=== PATIENT | female | born 1925 | race Caucasian/White ===

== ENCOUNTER 2016-05-01 17:12 | Outpatient (CLI) | payer MEDICARE, OTHER | END 2016-05-01 17:13 | disposition home or self-care (01) | DX: M16.0 Bilateral primary osteoarthritis of hip (principal); R10.2 Pelvic and perineal pain ==

== ENCOUNTER 2016-05-11 11:13 | Outpatient (CLI) | payer MEDICARE, OTHER | END 2016-05-11 11:14 | disposition home or self-care (01) | DX: I48.91 Unspecified atrial fibrillation (principal); Z79.01 Long term (current) use of anticoagulants ==

== ENCOUNTER 2016-06-08 08:46 | Outpatient (CLI) | payer MEDICARE, OTHER | END 2016-06-08 08:47 | disposition home or self-care (01) | DX: I48.91 Unspecified atrial fibrillation (principal); Z79.01 Long term (current) use of anticoagulants ==

== ENCOUNTER 2016-08-03 11:32 | Outpatient (CLI) | payer MEDICARE, OTHER | END 2016-08-03 11:33 | disposition home or self-care (01) | DX: I48.91 Unspecified atrial fibrillation (principal); Z79.01 Long term (current) use of anticoagulants ==

== ENCOUNTER 2016-08-04 08:16 | Outpatient (CLI) | payer MEDICARE, OTHER | END 2016-08-04 23:59 | DX: I48.91 Unspecified atrial fibrillation (principal); Z79.899 Other long term (current) drug therapy; I10 Essential (primary) hypertension ==

== ENCOUNTER 2016-08-17 11:28 | Outpatient (CLI) | payer MEDICARE, OTHER | END 2016-08-17 11:29 | disposition home or self-care (01) | DX: I48.91 Unspecified atrial fibrillation (principal); Z79.01 Long term (current) use of anticoagulants ==

== ENCOUNTER 2016-08-18 08:16 | Outpatient (CLI) | payer MEDICARE, OTHER | END 2016-08-18 08:17 | disposition home or self-care (01) | DX: M85.89 Other specified disorders of bone density and structure, multiple sites (principal); Z78.0 Asymptomatic menopausal state ==

== ENCOUNTER 2016-08-22 08:00 | Outpatient (CLI) | payer MEDICARE, OTHER | END 2016-08-22 08:01 | disposition home or self-care (01) | DX: N18.9 Chronic kidney disease, unspecified (principal); Z79.899 Other long term (current) drug therapy; M62.81 Muscle weakness (generalized) ==

== ENCOUNTER 2016-08-28 08:37 | Outpatient (CLI) | payer MEDICARE, OTHER | END 2016-08-28 08:38 | disposition home or self-care (01) | DX: I48.91 Unspecified atrial fibrillation (principal); Z79.01 Long term (current) use of anticoagulants ==

== ENCOUNTER 2016-09-05 09:24 | Outpatient (CLI) | payer MEDICARE, OTHER | END 2016-09-05 09:25 | disposition home or self-care (01) | LOC: LAB 09:24 | PROVIDERS: ATTEND Internal Medicine | DX: I48.91 Unspecified atrial fibrillation (principal); Z79.01 Long term (current) use of anticoagulants | CPT/HCPCS: 85610 ==

== ENCOUNTER 2016-09-12 10:04 | Outpatient (CLI) | payer MEDICARE, OTHER | END 2016-09-12 10:05 | disposition home or self-care (01) | LOC: LAB 10:04 | PROVIDERS: ATTEND Internal Medicine | DX: I48.91 Unspecified atrial fibrillation (principal) | CPT/HCPCS: 85610 ==

== ENCOUNTER 2016-09-26 09:13 | Outpatient (CLI) | payer MEDICARE, OTHER | END 2016-09-26 09:14 | disposition home or self-care (01) | LOC: LAB 09:13 | PROVIDERS: ATTEND Internal Medicine | DX: I48.91 Unspecified atrial fibrillation (principal) | CPT/HCPCS: 85610 ==

== ENCOUNTER 2016-10-03 08:55 | Outpatient (CLI) | payer MEDICARE, OTHER ==
[2016-10-03 16:09] LABS: BASOPHILS % (AUTO) 0.3 %; EOSINOPHILS # (AUTO) 0.3 10^3/uL (0.0-0.7); EOSINOPHILS % (AUTO) 5.9 %; HGB - HEMOGLOBIN 10.1 g/dL (12.0-16.0); IMMATURE RETIC FRACTION 0.46; MEAN CORPUSCULAR HEMOGLOBIN 27.9 pg (27.0-31.0); MEAN CORPUSCULAR HGB CONC 32.6 g/dL (32.0-36.0); MEAN CORPUSCULAR VOLUME 85.7 fL (81.0-99.0); MEAN PLATELET VOLUME 8.8 fL (7.9-10.8); MONOCYTES # (AUTO) 0.4 10^3/uL (0.0-1.0); MONOCYTES % (AUTO) 9.5 %; NEUTROPHILS # (AUTO) 2.8 10^3/uL (1.5-6.6); NEUTROPHILS % (AUTO) 62.3 %; RED BLOOD COUNT 3.62 10^6/uL (4.20-5.40); UNCORRECTED WHITE BLOOD COUNT 4.5 x10^3/uL; WHITE BLOOD COUNT 4.5 x10^3/uL (4.8-10.8)
[2016-10-03 16:39] LABS: FERRITIN 16.2 ng/mL (11.0-306.8)
== END 2016-10-03 08:56 | disposition home or self-care (01) ==
LOC: LAB.R 08:55
PROVIDERS: ATTEND Internal Medicine
DX: D64.9 Anemia, unspecified (principal)
CPT/HCPCS: 82607; 82728; 83010; 85025; 85044; 86880

== ENCOUNTER 2016-10-04 13:51 | Outpatient (CLI) | payer MEDICARE, OTHER | END 2016-10-04 13:52 | disposition home or self-care (01) | LOC: DI 13:51 | PROVIDERS: ATTEND Internal Medicine | DX: I48.91 Unspecified atrial fibrillation (principal); R53.83 Other fatigue; I08.3 Combined rheumatic disorders of mitral, aortic and tricuspid valves | CPT/HCPCS: 93306 ==

== ENCOUNTER 2016-10-10 11:02 | Outpatient (CLI) | payer MEDICARE, OTHER | END 2016-10-10 11:03 | disposition home or self-care (01) | LOC: LAB 11:02 | PROVIDERS: ATTEND Internal Medicine | DX: I48.91 Unspecified atrial fibrillation (principal) | CPT/HCPCS: 85610 ==

== ENCOUNTER 2016-10-10 13:21 | Outpatient (CLI) | payer MEDICARE, OTHER | END 2016-10-10 13:22 | disposition EMS.NT | LOC: EMS 13:21 | PROVIDERS: ATTEND Surgery | DX: R53.1 Weakness (principal); W17.89XA Other fall from one level to another, initial encounter; Y92.009 Unspecified place in unspecified non-institutional (private) residence as the place of occurrence of the external cause ==

== ENCOUNTER 2016-10-12 11:39 | Outpatient (CLI) | payer MEDICARE, OTHER ==
--- NOTE | 2016-10-13 09:48 | Ultrasound Report ---
COMPLETE ABDOMINAL ULTRASOUND: 10/12/2016 CLINICAL INDICATION: Abdominal distention. TECHNIQUE: Real-time scanning was performed with marketing representative static images obtained. FINDINGS: The liver measures 14.1 cm. An 1.2 cm cyst is noted in the right lobe. No focal solid hepa tic lesion or intrahepatic biliary dilatation is present. The common bile duct measures 5 mm. The gal lbladder demonstrates sludge within its lumen. No definite shadowing calculus is seen. The visualized pancreas is normal. The right kidney measures 9.3 cm, and demonstrates a 2.5 cm cyst. The left kidne y measures 8.6 cm, and demonstrates an 1.1 cm cyst. No hydronephrosis, shadowing calculus, or solid r enal mass is identified. The spleen measures 8.1 cm, and appears unremarkable. The abdominal aorta is normal in caliber. The inferior vena cava is unremarkable. No free fluid is present. IMPRESSION: 1. INCIDENTAL HEPATIC AND RENAL CYSTS. 2. NO EVIDENT ETIOLOGY FOR ABDOMINAL DISTENTION. JOB #: [id number] EXT JOB #:[id number]
== END 2016-10-12 11:40 | disposition home or self-care (01) ==
LOC: DI 11:39
PROVIDERS: ATTEND Internal Medicine
DX: R14.0 Abdominal distension (gaseous) (principal)
CPT/HCPCS: 76700

== ENCOUNTER 2016-11-07 10:29 | Outpatient (CLI) | payer MEDICARE, OTHER | END 2016-11-07 10:30 | disposition home or self-care (01) | LOC: LAB 10:29 | PROVIDERS: ATTEND Internal Medicine | DX: I48.91 Unspecified atrial fibrillation (principal) | CPT/HCPCS: 85610 ==

== ENCOUNTER 2016-11-14 11:10 | Outpatient (CLI) | payer MEDICARE, OTHER ==
[2016-11-14 16:45] LABS: BASOPHILS % (AUTO) 0.4 %; EOSINOPHILS # (AUTO) 0.2 10^3/uL (0.0-0.7); EOSINOPHILS % (AUTO) 3.2 %; HCT - HEMATOCRIT 30.9 % (37.0-47.0); HGB - HEMOGLOBIN 9.8 g/dL (12.0-16.0); LYMPHOCYTES # (AUTO) 0.9 10^3/uL (1.5-3.5); LYMPHOCYTES % (AUTO) 17.2 %; MEAN CORPUSCULAR HEMOGLOBIN 27.6 pg (27.0-31.0); MEAN CORPUSCULAR HGB CONC 31.8 g/dL (32.0-36.0); MEAN CORPUSCULAR VOLUME 86.7 fL (81.0-99.0); MEAN PLATELET VOLUME 8.3 fL (7.9-10.8); MONOCYTES # (AUTO) 0.7 10^3/uL (0.0-1.0); MONOCYTES % (AUTO) 13.6 %; NEUTROPHILS # (AUTO) 3.4 10^3/uL (1.5-6.6); NEUTROPHILS % (AUTO) 65.6 %; RED BLOOD COUNT 3.56 10^6/uL (4.20-5.40); RED CELL DISTRIBUTION WIDTH 17.3 % (12.0-15.0); UNCORRECTED WHITE BLOOD COUNT 5.2 x10^3/uL; WHITE BLOOD COUNT 5.2 x10^3/uL (4.8-10.8)
== END 2016-11-14 11:11 | disposition home or self-care (01) ==
LOC: LAB.R 11:10
PROVIDERS: ATTEND Internal Medicine
DX: D64.9 Anemia, unspecified (principal)
CPT/HCPCS: 82728; 85025

== ENCOUNTER 2016-11-18 09:16 | Inpatient (IN) | payer MEDICARE, OTHER ==
--- NOTE | 2016-11-18 10:05 | ED Physician Documentation ---
History of Present Illness - Stated complaint Stated Complaint: ABD PX - Chief complaint Chief Complaint: Abd Pain - History obtained from History obtained from: Patient, Family - Additonal information Additional information: Patient is a relatively healthy 89-year-old female. She does have a history of atrial fibrillation and is on carvedilol and Coumadin. She has had lumbar back surgery in the past but has never had any abdominal surgery. She does mention that she has a history of recurrent constipation. She is here with a chief complaint of lower abdominal pain that started early this morning about 5 and it lasted a couple hours. It was located bilaterally in the lower part of her abdomen. She felt nauseous with this pain but did not vomit. She has not had any recent constipation, diarrhea, or lower urinary symptoms. She denies any fever. She had the pain nothing made it better or worse. She denies any chest pain or shortness of breath. Review of systems: For pertinent positive and negatives in the review of systems please see the history of present illness, otherwise all other systems have been reviewed and are negative. Dragon disclaimer: Parts of this medical record were created using voice recognition technology. Because of the inherent limitations of this system, occasional same sounding word substitutions do occur and persist despite proofreading. Please read the document for context. Review of Systems Ten Systems: 10 systems reviewed and negative Constitutional: denies: Fever, Chills, Myalgias Eyes: reports: Reviewed and negative Ears: reports: Reviewed and negative Cardiac: denies: Chest pain / pressure, Palpitations, Pedal edema, Calf pain Respiratory: denies: Dyspnea, Cough, Hemoptysis, Wheezing GI: reports: Abdominal Pain, Nausea. denies: Abdominal Swelling, Vomiting, Constipation, Diarrhea, Hematemesis, Bloody / black stool : denies: Dysuria Skin: denies: Rash, Lesions PD PAST MEDICAL HISTORY - Past Medical History Cardiovascular: Hypertension, Atrial fibrillation Respiratory: Asthma Neuro: None Endocrine/Autoimmune: None GI: Chronic constipation : None HEENT: Macular degeneration Psych: None Musculoskeletal: None Derm: None - Past Surgical History Ortho: Spine surgery HEENT: Cataracts, Tonsil/Adenoidectomy Derm: Skin cancer surgery, Other - Present Medications Home Medications: Ambulatory Orders Medication Instructions Recorded Confirmed Carvedilol 1 tab PO BID 12/01/13 11/18/16 Triamterene/Hydrochlorothiazid 1 tab PO DAILY 12/01/13 11/18/16 [Triamterene-Hctz 37.5-25 mg Tb] Fluticasone 44 Mcg [Flovent] 1 puffs INH BID 09/22/14 11/18/16 Levalbuterol Tartrate [Xopenex Hfa] 1 puffs INH Q6HR PRN 09/22/14 11/18/16 Warfarin Sodium 2.5 - 5 mg PO DAILY 09/22/14 11/18/16 Furosemide [Lasix] 1 tab PO DAILY 10/15/14 11/18/16 Potassium Chloride 20 meq PO BID 11/18/16 11/18/16 - Allergies Allergies/Adverse Reactions: Allergies Allergy/AdvReac Type Severity Reaction Status Date / Time albuterol Allergy Unknown Verified 12/09/13 10:30 verapamil [Verapamil] Allergy Rash Verified 12/09/13 10:30 codeine AdvReac Dizziness Verified 12/09/13 10:30 digoxin AdvReac Dizziness Verified 12/09/13 10:30 diltiazem AdvReac Dizziness Verified 12/09/13 10:30 metoprolol AdvReac Dizziness Verified 12/09/13 10:30 oxycodone [Oxycodone] AdvReac Nausea Verified 12/09/13 10:30 - Social History Does the pt smoke?: No Smoking Status: Never smoker PD ED PE NORMAL - Vitals Vital signs reviewed: Yes - General General: Alert and oriented X 3, No acute distress, Well developed/nourished - HEENT HEENT: Atraumatic, PERRL - Cardiac Cardiac: No gallop, No rub, Other (Irregularly irregular heart rate) - Respiratory Respiratory: No respiratory distress, Clear bilaterally - Abdomen Abdomen: Normal bowel sounds, Non tender, Non distended - Derm Derm: Normal color - Extremities Extremities: No deformity, No tenderness to palpate, Normal ROM s pain, No edema , No calf tenderness / cord, Other - Neuro Neuro: Alert and oriented X 3, No motor deficit - Psych Psych: Normal mood, Normal affect Results - Vitals Vitals: Vital Signs - 24 hr 11/18/16 11/18/16 11/18/16 09:19 11:30 12:24 Temperature 35.7 C L Heart Rate 107 H 53 L 81 Respiratory 16 12 20 Rate Blood Pressure 163/105 H 132/67 H 175/90 H O2 Saturation 95 97 96 11/18/16 11/18/16 15:21 18:15 Temperature 36.9 C Heart Rate 88 87 Respiratory 16 16 Rate Blood Pressure 155/85 H 146/84 H O2 Saturation 100 97 Oxygen O2 Source Room air - Labs Labs: Laboratory Tests 11/18/16 11/18/16 11/18/16 10:10 10:10 10:10 WBC 7.4 RBC 3.70 L Hgb 10.3 L Hct 31.6 L MCV 85.3 MCH 27.8 MCHC 32.5 RDW 16.6 H Plt Count 299 MPV 7.8 L Neut # 5.8 Lymph # 1.0 L [place] # 0.5 Eos # 0.1 Baso # 0.1 Absolute Nucleated RBC 0.01 Nucleated RBCs 0.1 PT 19.4 H INR 1.7 H Sodium 136 Potassium 3.9 Chloride 98 L Carbon Dioxide 29 Anion Gap 9.0 BUN 31 H Creatinine 1.3 H Estimated GFR (MDRD) 39 L Glucose 102 H Lactic Acid Calcium 10.2 Total Bilirubin 0.6 AST 21 ALT 16 Alkaline Phosphatase 47 Total Protein 6.5 L Albumin 3.2 Globulin 3.3 Albumin/Globulin Ratio 1.0 Lipase 27 Urine Color Urine Clarity Urine pH Ur Specific [place] Urine Protein Urine Glucose (UA) Urine Ketones Urine Occult Blood Urine Nitrite Urine Bilirubin Urine Urobilinogen Ur Leukocyte Esterase Ur Microscopic Review Urine Culture Comments 11/18/16 11/18/16 11:00 14:37 WBC RBC Hgb Hct MCV MCH MCHC RDW Plt Count MPV Neut # Lymph # [place] # Eos # Baso # Absolute Nucleated RBC Nucleated RBCs PT INR Sodium Potassium Chloride Carbon Dioxide Anion Gap BUN Creatinine Estimated GFR (MDRD) Glucose Lactic Acid 1.2 Calcium Total Bilirubin AST ALT Alkaline Phosphatase Total Protein Albumin Globulin Albumin/Globulin Ratio Lipase Urine Color YELLOW Urine Clarity CLOUDY Urine pH 5.5 Ur Specific [place] 1.025 Urine Protein TRACE Urine Glucose (UA) NEGATIVE Urine Ketones NEGATIVE Urine Occult Blood TRACE-LYSE Urine Nitrite NEGATIVE Urine Bilirubin NEGATIVE Urine Urobilinogen 0.2 (NORMAL) Ur Leukocyte Esterase MODERATE H Ur Microscopic Review NOT INDICATED Urine Culture Comments NOT INDICATED PD MEDICAL DECISION MAKING - ED course ED course: Patient is a pleasant 89-year-old female with history of atrial fibrillation on Coumadin who presents with a complaint of lower abdominal pain starting this morning she felt nauseated but never had any vomiting. When I saw the patient she looks well and had a fairly benign abdominal examination with only increased borborygmi. Plain films demonstrated abnormal bowel gas pattern possibly suggestive of a small bowel obstruction so this was followed up with a noncontrast CT given her renal dysfunction. The CTs demonstrates probable intussusception. Interestingly clinically the patient is doing very well. She has no nausea vomiting, no pain at present and really no tenderness. The case was discussed with general surgery. The patient also had a oral contrast CT scan of the abdomen and pelvis which demonstrates intussusception at the ileocecal area with findings consistent with a mass. The patient clinically is doing well. She is more or less asymptomatic at this time. She is likely volume resuscitated given a dose of Zofran. At this point in time we are going to place an NG tube because ultimately she will probably start to worsen at some point. The patient was notified of this findings and the need for surgery in the morning. Disposition: Admission Clinical impression: 1. Ileocecal mass with intussusception 2. History of atrial fibrillation on Coumadin-currently in atrial fibrillation 3. Chronic kidney disease Departure - Departure Disposition: [facility] DC/Xfer Clinical Impression: Intussusception of cecum
[2016-11-18 10:24] LABS: BASOPHILS # (AUTO) 0.1 10^3/uL (0.0-0.1); BASOPHILS % (AUTO) 0.8 %; EOSINOPHILS # (AUTO) 0.1 10^3/uL (0.0-0.7); EOSINOPHILS % (AUTO) 1.4 %; HCT - HEMATOCRIT 31.6 % (37.0-47.0); HGB - HEMOGLOBIN 10.3 g/dL (12.0-16.0); LYMPHOCYTES % (AUTO) 13.2 %; MEAN CORPUSCULAR HEMOGLOBIN 27.8 pg (27.0-31.0); MEAN CORPUSCULAR HGB CONC 32.5 g/dL (32.0-36.0); MEAN CORPUSCULAR VOLUME 85.3 fL (81.0-99.0); MEAN PLATELET VOLUME 7.8 fL (7.9-10.8); MONOCYTES # (AUTO) 0.5 10^3/uL (0.0-1.0); MONOCYTES % (AUTO) 6.4 %; NEUTROPHILS # (AUTO) 5.8 10^3/uL (1.5-6.6); NEUTROPHILS % (AUTO) 78.2 %; NUCLEATED RED BLOOD CELLS AUTO 0.1 /100WBC; RED CELL DISTRIBUTION WIDTH 16.6 % (12.0-15.0); UNCORRECTED WHITE BLOOD COUNT 7.4 x10^3/uL; WHITE BLOOD COUNT 7.4 x10^3/uL (4.8-10.8)
[2016-11-18 10:26] LABS: INR 1.7 (0.8-1.2); PT - PROTHROMBIN TIME 19.4 secs (9.9-12.6)
[2016-11-18 10:32] LABS: BILIRUBIN,TOTAL 0.6 mg/dL (0.2-1.0); CALCIUM 10.2 mg/dL (8.5-10.3); CREATININE 1.3 mg/dL (0.4-1.0); POTASSIUM 3.9 mmol/L (3.5-5.0); TOTAL PROTEIN 6.5 g/dL (6.7-8.2)
--- NOTE | 2016-11-18 11:06 | XRAY Preliminary Report ---
Exam: XR Abdomen 1 View IMPRESSION: 1. Air-fluid level in bowel may represent developing partial obstruction and/or liquid bowel contents . 2. Large rectal stool burden [facility] SITE ID: [id number]
[2016-11-18 11:07] LABS: BILIRUBIN,URINE NEGATIVE (NEGATIVE); PH,URINE 5.5 PH (5.0-7.5)
--- NOTE | 2016-11-18 11:08 | XRAY Report ---
EXAM: ABDOMEN RADIOGRAPHY EXAM DATE: 11/18/2016 10:32 AM. CLINICAL HISTORY: Generalized ab pain hx of constipation. COMPARISON: Limited comparison made with pelvis radiograph of 05/01/2016, chest radiograph 10/20/2014 .. TECHNIQUE: 1 view. FINDINGS: Bowel Gas Pattern: Air-fluid level in bowel. Large amount rectal stool. Other: Mild rotary levoscoliosis of the lumbar spine. IMPRESSION: 1. Air-fluid level in bowel may represent developing partial obstruction and/or liquid bowel contents . 2. Large rectal stool burden [facility] Referring Provider Line: [phone] SITE ID: [id number]
[2016-11-18 11:19] LABS: UA CHARGE (STRIP ONLY) YES
[2016-11-18 11:20] LABS: UR CULTURE IF IND NOT INDICATED
[2016-11-18] MEDS ORDERED: INSULIN ASPART 300 UNIT/3 ML PEN SUBQ STA (13:16)
--- NOTE | 2016-11-18 13:28 | CT Preliminary Report ---
Exam: CT Abdomen/Pelvis W/O IMPRESSION: 1. Colonic intussusception at the hepatic flexure. Recommend correlation with colonoscopy as underlyi ng mass lead point is possible. 2. A 10 mm hypoattenuating focus in hepatic segment 5 is indeterminate on noncontrast CT. Further prosper luation may be obtained with liver ultrasound or MRI if clinically indicated. [facility] SITE ID: [id number]
--- NOTE | 2016-11-18 13:30 | CT Report ---
EXAM: CT ABDOMEN AND PELVIS EXAM DATE: 11/18/2016 12:08 PM. CLINICAL HISTORY: Lower abdominal pain. COMPARISONS: No prior CT available for comparison. Correlation made with abdominal radiograph from to day. TECHNIQUE: Routine helical CT imaging was performed through the abdomen and pelvis. IV contrast: None . Enteric contrast: No. Reconstructions: Coronal and sagittal. In accordance with CT protocol optimization, one or more of the following dose reduction techniques w ere utilized for this exam: automated exposure control, adjustment of mA and/or KV based on patient s ize, or use of iterative reconstructive technique. FINDINGS: Lung Bases: Mild left basilar subsegmental atelectasis and/or scarring. Mild cardiomegaly. No pericar dial effusion. Small hiatal hernia. Liver: Hypoattenuating 10 mm focus in hepatic segment 5. Gallbladder/Bile Ducts: Unremarkable. Spleen: Normal. Pancreas: Normal. Adrenal Glands: Normal. Kidneys: Mild bilateral cortical scarring and nonspecific perinephric fat stranding. The right kidney has a transverse lie and extrarenal pelvis.. Peritoneal Cavity/Bowel: There is intussusception at the hepatic flexure with mild adjacent mesenteri c inflammatory fat stranding. (series 3, image 41). Remainder of the small and large bowel are normal in caliber without evidence of inflammation or obstruction. Moderate sigmoid diverticulosis. Moderat e colorectal stool burden. No ascites or pneumoperitoneum. Tiny fat-containing umbilical hernia Pelvic Organs: Urinary bladder within normal limits. Vasculature: Severe aortobiiliac atherosclerosis without aneurysm Bones: Mild central wedge compression deformity of T12. Severe degenerative disk disease throughout t he thoracolumbar spine. 4 mm retrolisthesis of L1 and L2. Mild rotary levoscoliosis of the lumbar spi ne. Other: None. IMPRESSION: 1. Colonic intussusception at the hepatic flexure. Recommend correlation with colonoscopy as underlyi ng mass lead point is possible. 2. A 10 mm hypoattenuating focus in hepatic segment 5 is indeterminate on noncontrast CT. Further prosper luation may be obtained with liver ultrasound or MRI if clinically indicated. [facility] Referring Provider Line: [phone] SITE ID: [id number]
[2016-11-18] MEDS ORDERED: SODIUM CHLORIDE 0.9% 1,000 ML IV ONE (15:05)
[2016-11-18] MEDS ORDERED: SODIUM CHLORIDE FLUSH 0.9% 10 ML SYRINGE IVP ONE (15:22)
[2016-11-18] MEDS ORDERED: ONDANSETRON 4 MG/2 ML VIAL IVP PRN (18:26)
--- NOTE | 2016-11-18 18:30 | CT Report ---
EXAM: CT ABDOMEN AND PELVIS EXAM DATE: 11/18/2016 05:50 PM. CLINICAL HISTORY: Possible intussusception. COMPARISONS: CT abdomen and pelvis 11/18/2016 at 1201. TECHNIQUE: Routine helical CT imaging was performed through the abdomen and pelvis. IV contrast: None . Enteric contrast: Yes. Reconstructions: Coronal and sagittal. In accordance with CT protocol optimization, one or more of the following dose reduction techniques w ere utilized for this exam: automated exposure control, adjustment of mA and/or KV based on patient s ize, or use of iterative reconstructive technique. FINDINGS: Lung Bases: Airways wall thickening at the bases. Trace effusions. Moderate cardiomegaly. Possible aortic valve calcifications. Trace pericardial fluid. Coronary artery atherosclerotic calcifications. Liver: Low attenuating lesion in segment 5, series 3, axial image 29, measures 1 cm and 11 Hounsfield units, possible cyst. Gallbladder/Bile Ducts: Pericholecystic edema and ill-defined fluid. Spleen: Normal. Pancreas: Normal. Adrenal Glands: Normal. Kidneys: Large parapelvic cyst on the right measures 3.7 cm. No hydronephrosis. Mild renal atrophy. S mall exophytic lesion off the inferior pole left kidney measures less than 1 cm and is too small to c haracterize. Peritoneal Cavity/Bowel: Small hiatal hernia. Incidental duodenal diverticulum. Colonic diverticulosi s. Contrast has reached the distal colon. Transverse colon wall thickening with under distention. Lar ge ileocolic intussusception with masslike thickening around the ileocecal valve and adjacent colon, series 3, axial image 36. Intussusception extends to the hepatic flexure. Pericolonic edema around th e hepatic flexure and adjacent gallbladder fossa. Pelvic Organs: Normal. The bladder and visualized pelvic organs are within normal limits. Vasculature: Moderate atherosclerotic calcifications. Bones: Osteopenia. Severe degenerative disk disease at L5/S1. Other: Small fat-containing umbilical hernia. IMPRESSION: 1. Large ileocecal intussusception extending to the hepatic flexure with suspected large mass acting as a lead point. Surgical evaluation. 2. Moderate cardiomegaly 3. Trace effusions 4. Small low attenuating liver lesion could be further characterized with liver MRI 5. Edema and ill-defined fluid in the right upper quadrant surrounding the ileocolic intussusception extends to surround the gallbladder 6. Renal atrophy 7. Colonic diverticulosis 8. Contrast has made its way to the distal colon 9. Transverse colon wall thickening may be related to developing colitis or under distention. 10. Small amount of mildly complex free fluid in the pelvis [facility] The above findings were discussed with Kelley by Dr. Jorje Baires at 18:26 hrs on 11/18/16. Referring Provider Line: [phone] SITE ID: [id number]
[2016-11-18] MEDS ORDERED: SALINE ENEMA 133 ML BOTTLE RC SCH (18:33)
[2016-11-18] MEDS ORDERED: MAGNESIUM CITRATE 296 ML BOTTLE NG SCH (18:33)
[2016-11-18] MEDS ORDERED: LEVALBUTEROL 1.25 MG INH PRN (18:39)
[2016-11-18] MEDS ORDERED: BENZOCAINE SPRAY MM PRN (20:15)
--- NOTE | 2016-11-18 20:33 | XRAY Preliminary Report ---
Exam: XR Chest 2 View PA/LAT IMPRESSION: 1. Stable cardiomegaly. 2. New small posterior pleural effusions. 3. Hyperexpanded lungs again noted, could be age-related or COPD. [facility] SITE ID: [id number]
--- NOTE | 2016-11-18 20:35 | XRAY Report ---
EXAM: CHEST RADIOGRAPHY EXAM DATE: 11/18/2016 07:22 PM. CLINICAL HISTORY: Colon mass, pre operative. COMPARISON: Chest 10/20/2014. TECHNIQUE: 2 views. FINDINGS: Lungs/Pleura: No focal opacities evident. No pneumothorax. Hyperexpanded lungs. New small posterior p leural effusions. Mediastinum: Stable cardiomegaly. IMPRESSION: 1. Stable cardiomegaly. 2. New small posterior pleural effusions. 3. Hyperexpanded lungs again noted, could be age-related or COPD. [facility] Referring Provider Line: [phone] SITE ID: [id number]
[2016-11-18] MEDS ORDERED: FLUTICASONE HFA 44 MCG INHALER INH SCH (21:00)
[2016-11-18] MEDS: LACTATED RINGERS 1,000 ML IV SCH (21:36)
[2016-11-18] MEDS: SODIUM CHLORIDE FLUSH 0.9% 10 ML SYRINGE IVP SCH (21:36)
[2016-11-19] MEDS ORDERED: SALINE ENEMA 133 ML BOTTLE RC SCH (05:00)
[2016-11-19] MEDS ORDERED: MAGNESIUM CITRATE 296 ML BOTTLE PO SCH (05:00)
[2016-11-19 06:38] LABS: BASOPHILS # (AUTO) 0.1 10^3/uL (0.0-0.1); BASOPHILS % (AUTO) 0.9 %; EOSINOPHILS # (AUTO) 0.1 10^3/uL (0.0-0.7); EOSINOPHILS % (AUTO) 2.4 %; HCT - HEMATOCRIT 33.6 % (37.0-47.0); HGB - HEMOGLOBIN 10.8 g/dL (12.0-16.0); LYMPHOCYTES # (AUTO) 0.9 10^3/uL (1.5-3.5); LYMPHOCYTES % (AUTO) 15.2 %; MEAN CORPUSCULAR HEMOGLOBIN 27.7 pg (27.0-31.0); MEAN CORPUSCULAR HGB CONC 32.2 g/dL (32.0-36.0); MEAN CORPUSCULAR VOLUME 86.1 fL (81.0-99.0); MEAN PLATELET VOLUME 7.5 fL (7.9-10.8); MONOCYTES # (AUTO) 0.5 10^3/uL (0.0-1.0); MONOCYTES % (AUTO) 8.1 %; NEUTROPHILS # (AUTO) 4.6 10^3/uL (1.5-6.6); NEUTROPHILS % (AUTO) 73.4 %; RED CELL DISTRIBUTION WIDTH 17.2 % (12.0-15.0); UNCORRECTED WHITE BLOOD COUNT 6.2 x10^3/uL; WHITE BLOOD COUNT 6.2 x10^3/uL (4.8-10.8)
[2016-11-19 06:49] LABS: INR 2.1 (0.8-1.2); PT - PROTHROMBIN TIME 23.4 secs (9.9-12.6)
[2016-11-19 06:51] LABS: CALCIUM 9.2 mg/dL (8.5-10.3); CREATININE 1.1 mg/dL (0.4-1.0); POTASSIUM 3.5 mmol/L (3.5-5.0)
[2016-11-19 06:56] LABS: PARTIAL THROMBOPLASTIN TIME 37.2 secs (24.9-33.3)
[2016-11-19] MEDS: PANTOPRAZOLE 40 MG VIAL IVP SCH ×2 (06:57→19:39)
[2016-11-19] MEDS: SODIUM CHLORIDE FLUSH 0.9% 10 ML SYRINGE IVP SCH ×3 (06:58→22:02)
[2016-11-19] MEDS: LACTATED RINGERS 1,000 ML IV SCH ×2 (07:12→18:47)
[2016-11-19] MEDS: LEVALBUTEROL 1.25 MG INH PRN ×2 (07:30→20:25)
[2016-11-19] MEDS: BUDESONIDE 0.5 MG/2 ML NEB INH SCH ×2 (07:30→20:25)
[2016-11-19] MEDS ORDERED: LACTATED RINGERS 1,000 ML IV ONE ×3 (10:37→15:23)
[2016-11-19] MEDS ORDERED: metroNIDAZOLE 500 MG/100 ML 100 ML IV ONE (11:00)
[2016-11-19] MEDS ORDERED: BUPIVACAINE 0.25% PF 30 ML VIAL SUBQ ONE ×2 (11:13)
[2016-11-19] MEDS ORDERED: SUCCINYLCHOLINE 200 MG/10 ML VIAL IVP ONE (12:00)
[2016-11-19] MEDS ORDERED: fentaNYL 100 MCG/2 ML VIAL IVP ONE (12:00)
[2016-11-19] MEDS ORDERED: PHENYLEPHRINE 50 MG/5 ML VIAL IV ONE (12:00)
[2016-11-19] MEDS ORDERED: PROPOFOL 200 MG/20 ML VIAL IVP ONE (12:00)
[2016-11-19] MEDS ORDERED: DEXAMETHASONE 4 MG/ML VIAL IVP ONE (12:00)
[2016-11-19] MEDS ORDERED: ceFAZolin 1 GM VIAL IV ONE (12:00)
[2016-11-19] MEDS ORDERED: LIDOCAINE-MPF 2% 5 ML VIAL IM ONE (12:00)
[2016-11-19] MEDS ORDERED: MIDAZOLAM 2 MG/2 ML VIAL IVP ONE (12:00)
[2016-11-19] MEDS ORDERED: ACETAMINOPHEN 1,000 MG/100 ML VIAL IV ONE (12:00)
[2016-11-19] MEDS ORDERED: NEOSTIGMINE 1 MG/1 ML 10 ML MDV IVP ONE (12:00)
[2016-11-19] MEDS ORDERED: ROCURONIUM 50 MG/5 ML VIAL IVP ONE (12:00)
[2016-11-19] MEDS ORDERED: ONDANSETRON 4 MG/2 ML VIAL IVP ONE (12:00)
[2016-11-19] MEDS ORDERED: GLYCOPYRROLATE 1 MG/5 ML VIAL IVP ONE (12:00)
[2016-11-19] MEDS ORDERED: MORPHINE PCA 50 MG IV PRN (16:51)
[2016-11-19] MEDS ORDERED: ONDANSETRON 4 MG/2 ML VIAL IVP PRN (16:53)
--- NOTE | 2016-11-19 17:29 | HISTORY & PHYSICAL EXAMINATION ---
DATE OF ADMISSION: 11/18/2016 REASON FOR ADMISSION: Colonic intussusception. HISTORY OF PRESENT ILLNESS: This is an 89-year-old female who presented to the emergency department this morning for abdominal pain, which started at approximately 4 a.m. She states the pain was mostly located in her right upper quadrant and was progressive. She had a bowel movement the night prior and was continuing to pass gas. A CT scan of the abdomen was performed without oral or IV contrast, which demonstrated a possible colonic intussusception at the hepatic flexure. Due to the lack of intraoral contrast, the diagnosis was somewhat unclear. For this reason, a CT scan with oral contrast was repeated, which easily delineated the colonic intussusception located at the hepatic flexure with a likely intraluminal mass. Upon my evaluation of the patient, she was resting comfortably and her abdominal pain was pretty much subsided. She said that she was continuing to pass gas today, and her last bowel movement she confirmed was yesterday. She denies any recent changes in her bowel habits including blood in her stools. She believes she last had a colonoscopy approximately 10 years ago. She denies any unexplained weight loss or loss of appetite. She has not had any intraabdominal surgeries in the past. PAST MEDICAL HISTORY: Significant for atrial fibrillation, on Coumadin, hypertension, asthma, macular degeneration. PAST SURGICAL HISTORY: Spinal surgery, cataract surgery, tonsillectomy and adenoidectomy, and skin cancer surgery. HOME MEDICATIONS 1. Carvedilol, unknown dose, 1 tab twice daily. 2. Coumadin 2.5, two 5 mg daily. 3. Triamterene/hydrochlorothiazide 37.5/25, one tab daily. 4. Potassium 28 mEq p.o. twice daily. 5. Levalbuterol 1 puff INH q.6 p.r.n. 6. Lasix, unknown dosage, 1 tab daily. 7. Fluticasone 44 mcg 1 puff twice daily. ALLERGIES TO MEDICATIONS 1. ALBUTEROL. 2. VERAPAMIL. 3. CODEINE. 4. DIGOXIN. 5. DILTIAZEM. 6. METOPROLOL. 7. OXYCODONE. SOCIAL HISTORY: The patient lives independently. Her cousin is with her at the bedside. She is able to complete her activities of daily living independently. Her primary care physician is Dr. Mcarthur. PHYSICAL EXAMINATION VITAL SIGNS: Temperature 36.3, heart rate 95, respiratory rate 18, O2 saturation 97% on room air. Blood pressure 144/67. GENERAL: Patient is awake, alert, oriented x3, in no acute distress. She is of small stature and small build. CARDIOVASCULAR: Irregularly irregular. CHEST: Clear to auscultation bilaterally with no rhonchi or wheezing. ABDOMEN: Soft, slightly distended with palpable mass in the right upper quadrant. There is no guarding and no rebound tenderness. EXTREMITIES: Non-edematous. LABORATORY VALUES: White blood cell count 7.4, hemoglobin 10.3, hematocrit 31.6 , platelets 299. PT 19.4, INR 1.7. Sodium 136, potassium 3.9, chloride 98, bicarbonate 29, BUN 31, creatinine 1.3, lactic acid 1.2. ASSESSMENT: This is an 89-year-old female with a colonic intussusception, likely secondary to an intracolonic mass. PLAN: The patient will be admitted to the surgical service and an NG tube will be placed for gastric decompression. Following this, an attempt at a bowel prep will be made with magnesium citrate and enemas. Patient will be placed on IV fluid resuscitation with a plan for laparoscopic assisted extended right hemicolectomy tomorrow. Repeat labs will be obtained to ensure her INR remains 1.7 or less, and if it increases, I will plan for transfusion of FFP prior to surgery. The procedure was explained to the patient in detail, including the potential risks involved including but not limited to bleeding, infection, damage to intraabdominal organs, heart attack, stroke and . She understands all of the above and also understands that without surgical intervention, eventual colonic perforation and possible would ensue. She is agreeing to proceed with surgery. JOB #: [id number] EXT JOB #:[id number] VIANEY
--- NOTE | 2016-11-19 17:39 | XRAY Preliminary Report ---
Exam: XR Abdomen 1 View IMPRESSION: No radiopaque foreign body. [facility] SITE ID: [id number]
--- NOTE | 2016-11-19 17:41 | XRAY Report ---
EXAM: ABDOMEN RADIOGRAPHY EXAM DATE: 11/19/2016 04:46 PM. CLINICAL HISTORY: POSSIBLE FB. COMPARISON: CT 11/18/2016. TECHNIQUE: 1 view. FINDINGS: Bowel Gas Pattern: No dilated bowel loops. Other: Nasogastric tube with tip overlying the fundus of the stomach. Residual oral contrast in the b owel. No radiopaque foreign body. IMPRESSION: No radiopaque foreign body. [facility] Referring Provider Line: [phone] SITE ID: [id number]
[2016-11-19] MEDS: ACETAMINOPHEN 1,000 MG/100 ML 100 ML IV SCH ×2 (19:39→22:03)
[2016-11-19] MEDS: SODIUM CHLORIDE FLUSH 0.9% 10 ML SYRINGE IVP PRN (22:02)
[2016-11-19] MEDS: CARVEDILOL 12.5 MG TABLET PO SCH (22:02)
[2016-11-20] MEDS: SODIUM CHLORIDE FLUSH 0.9% 10 ML SYRINGE IVP PRN (00:38)
--- NOTE | 2016-11-20 03:26 | OPERATIVE REPORT ---
DATE OF SURGERY: 11/19/2016 00:00:00 SURGEON: Tamika Franco MD. ANESTHESIOLOGIST: Jv Vargas MD. PROCEDURE: Exploratory laparoscopy, mobilization of hepatic flexure, right hemicolectomy, and colonoscopy. INDICATION FOR PROCEDURE: This is an 89-year-old female who presented to the emergency department yesterday with the finding of a colonic intussusception. The patient was admitted to the surgical service. She was placed on fluid hydration and a bowel prep was performed. Her INR was elevated and she was administered 2 units of FFP. This was in association with her Coumadin intake for AFib. Once she was stabilized for the operating room, she was brought for elective surgery. FINDINGS: After obtaining informed consent from the patient, she was brought into the operating room and positioned on the operating table in the supine position, taking note of pressure points. A Hope catheter was placed. She was intubated by Anesthesia. She was administered 2 grams of Ancef, then 500 of Flagyl. She was then prepped and draped in the usual sterile fashion. A timeout was taken according to protocol. A cm supraumbilical incision was created and using Daily technique, the abdominal cavity was entered. The camera was inserted and the colon was noted to be distended. An additional 5 mm port was placed in the patient's right lower quadrant and in the patient's left upper quadrant. The bowel was then explored. The cecum and terminal ileum were identified and no intussusception was seen here. The colon was then followed from the ascending colon to the transverse colon and the intussusception still was not identified. The descending colon and sigmoid were also inspected and no mass or intussusception was identified. I then began mobilizing the transverse colon in order to mobilize the hepatic flexure. This was done in completion. During the process of mobilization of the ascending and transverse colon, the right kidney was inadvertently also mobilized. There was no injury to the kidney during this process and the ureter was identified and protected. After mobilization of the colon, I was still unable to find a mass or an area of intussusception. For this reason, I elected to do a colonoscopy to identify a possible intracolonic mass. The laparoscopic instruments were removed and the incisions covered with tegaderm. The patient was positioned in the frog leg position and the colonoscopy was performed with some difficulty due to an inadequate prep. Once I was able to reach the cecum, a large nearly circumferential and obstructing mass was noted in the ascending colon just distal to the cecum. This area was tattooed. The scope was then withdrawn and the laparoscopic portion of the procedure was reinstituted. The ports were reinserted and the abdominal cavity reinsufflated. Now that the colon was fully mobilized, I chose my 2 sites of transection. the right lower quadrant port was upgraded to a 12 mm port and an additional 5 mm port was placed in the right upper quadrant to retract the colon. The terminal ileum was divided with an Endo WENDY 60 mm stapler, approximately 10 cm proximal to the cecum. The ascending colon was then divided near the hepatic flexure, approximately 5 cm proximal to the proximal tattooed jesus alberto. At this point, the laparoscopic instruments were removed and the supraumbilical incision was extended to accommodate the wound protecting device. It was extended approximately 3 cm cephalad. The wound protection device was then inserted and the transected end of the ascending colon was exteriorized. The mesentery was then divided using the Harmonic. The ileocolic pedicle was ligated using 0 silk sutures. The specimen was then completely excised and was passed off. The proximal and distal stapled end of the bowel were then exteriorized. These were aligned, ensuring there was no twisting of the mesentery during this process. A stay suture was placed with 3-0 silk. Enterotomies were then made in the distal ileum and the transverse colon. An anastomosis was created using the Endo WENDY 60 mm stapling device with a blue load. The common enterotomy was then clamped with Ghada clamps and was resected with the endo WENDY. The excess bowel was also passed off along with the specimens. The anastomosis was palpated and was noted to be widely patent. The staple line was inverted with interrupted vicryl sutures. The mesenteric defect was then closed with a running 3-0 Vicryl suture. At this point it was noted that a portion of one of the [place] we had been utilizing had a very small tip of a piece missing. We were unsure whether this occurred during the procedure or if the Plummer was damaged prior to its use. For this reason, we elected to perform an on-table abdominal x-ray to rule out presence of a foreign body and none was noted. The abdominal cavity was then inspected for any signs of bleeding and none was noted. The wound protector device was removed. The fascia was closed with a running 0 looped PDS suture. The 12 mm port site was closed with 0 figure of eight Vicryl suture. The midline wound was closed with 3-0 Vicryl and 4-0 Monocryl and the port sites were closed with 4-0 Monocryl, and 60 mL of local anesthetic was utilized. The patient was then extubated and taken to recovery in stable condition. ESTIMATED BLOOD LOSS: 40 mL. FLUIDS RECEIVED: 3 liters. COMPLICATIONS: None. SPECIMENS: Right colon. JOB #: [id number] EXT JOB #:[id number] VIANEY
[2016-11-20] MEDS: SODIUM CHLORIDE FLUSH 0.9% 10 ML SYRINGE IVP SCH ×3 (06:43→22:23)
--- NOTE | 2016-11-20 06:50 | XRAY Preliminary Report ---
Exam: XR Chest 1 View IMPRESSION: 1. NG tube in the mid stomach. 2. Cardiomegaly with pulmonary vascular congestion and small pleural effusions. 3. Left basilar atelectasis or infiltrate. [facility] SITE ID: [id number]
[2016-11-20 06:53] LABS: BASOPHILS % (AUTO) 0.1 %; HCT - HEMATOCRIT 31.7 % (37.0-47.0); HGB - HEMOGLOBIN 10.1 g/dL (12.0-16.0); LYMPHOCYTES # (AUTO) 0.5 10^3/uL (1.5-3.5); LYMPHOCYTES % (AUTO) 6.6 %; MEAN CORPUSCULAR HEMOGLOBIN 27.7 pg (27.0-31.0); MEAN CORPUSCULAR HGB CONC 31.9 g/dL (32.0-36.0); MONOCYTES # (AUTO) 0.3 10^3/uL (0.0-1.0); MONOCYTES % (AUTO) 4.1 %; NEUTROPHILS # (AUTO) 6.4 10^3/uL (1.5-6.6); NEUTROPHILS % (AUTO) 89.2 %; RED BLOOD COUNT 3.64 10^6/uL (4.20-5.40); UNCORRECTED WHITE BLOOD COUNT 7.2 x10^3/uL; WHITE BLOOD COUNT 7.2 x10^3/uL (4.8-10.8)
--- NOTE | 2016-11-20 06:53 | XRAY Report ---
EXAM: CHEST RADIOGRAPHY EXAM DATE: 11/20/2016 06:41 AM. CLINICAL HISTORY: Verify nasogastric tube placement. COMPARISON: 11/19/2016. TECHNIQUE: 1 view. FINDINGS: Lungs/Pleura: Pulmonary vascular congestion. Left basilar atelectasis or consolidation. Small pleural effusions, left greater than right. No pneumothorax. Mediastinum: Cardiomegaly. Aortic atherosclerosis. Other: Nasogastric tube tip in the mid stomach. IMPRESSION: 1. NG tube in the mid stomach. 2. Cardiomegaly with pulmonary vascular congestion and small pleural effusions. 3. Left basilar atelectasis or infiltrate. [facility] Referring Provider Line: [phone] SITE ID: [id number]
[2016-11-20] MEDS: BUDESONIDE 0.5 MG/2 ML NEB INH SCH ×3 (06:58→22:15)
[2016-11-20 07:04] LABS: CALCIUM 8.4 mg/dL (8.5-10.3); CREATININE 1.3 mg/dL (0.4-1.0); POTASSIUM 3.2 mmol/L (3.5-5.0)
[2016-11-20 07:05] LABS: INR 3.4 (0.8-1.2); PT - PROTHROMBIN TIME 38.6 secs (9.9-12.6)
[2016-11-20] MEDS: PANTOPRAZOLE 40 MG VIAL IVP SCH ×2 (07:27→17:02)
[2016-11-20] MEDS ORDERED: PHENOL THROAT SPRAY 177 ML MM PRN (08:35)
[2016-11-20] MEDS ORDERED: BENZOCAINE/MENTHOL LOZENGE MM PRN (08:35)
[2016-11-20] MEDS: CARVEDILOL 12.5 MG TABLET PO SCH ×2 (08:44→22:21)
[2016-11-20] MEDS: POTASSIUM CHLORIDE INJ 10 MEQ in SODIUM CHLORIDE 0.9% 1,000 ML IV SCH ×2 (08:46→22:43)
[2016-11-20] MEDS: ACETAMINOPHEN 1,000 MG/100 ML 100 ML IV SCH ×4 (08:50→22:24)
[2016-11-20] MEDS: LACTATED RINGERS 1,000 ML IV SCH ×3 (08:50→22:22)
--- NOTE | 2016-11-20 14:40 | POST OP PROGRESS NOTE ---
Subjective - General Admit Date: 11/18/16 Procedure Date: 11/20/16 Post Op Days: 0 - Review of Systems Wound/Incisions: positive: Healing well General: positive: Weakness, Fatigue Pulmonary: positive: No symptoms Cardiovascular: positive: No symptoms Gastrointestinal: positive: Flatus. negative: Nausea Genitourinary: positive: Hematuria Psychiatric: positive: No symptoms Surgery Impression Plan - Problem List (1) Intussusception of cecum Impression/Plan: DC oliva encourage ambulation con't NGT until bowel function. NPO, IV fluids hold coumadin - INR elevated today monitor HTN. home meds restarted but diuretics held.
[2016-11-20] MEDS: LEVALBUTEROL 1.25 MG INH PRN (22:15)
[2016-11-21] MEDS: POTASSIUM CHLORIDE INJ 10 MEQ in SODIUM CHLORIDE 0.9% 1,000 ML IV SCH (04:52)
[2016-11-21] MEDS: ACETAMINOPHEN 1,000 MG/100 ML 100 ML IV SCH ×4 (04:52→22:07)
[2016-11-21 06:08] LABS: BASOPHILS % (AUTO) 0.2 %; HCT - HEMATOCRIT 31.6 % (37.0-47.0); HGB - HEMOGLOBIN 10.2 g/dL (12.0-16.0); LYMPHOCYTES # (AUTO) 0.7 10^3/uL (1.5-3.5); LYMPHOCYTES % (AUTO) 11.4 %; MEAN CORPUSCULAR HEMOGLOBIN 28.1 pg (27.0-31.0); MEAN CORPUSCULAR HGB CONC 32.4 g/dL (32.0-36.0); MEAN CORPUSCULAR VOLUME 86.7 fL (81.0-99.0); MEAN PLATELET VOLUME 7.9 fL (7.9-10.8); MONOCYTES # (AUTO) 0.3 10^3/uL (0.0-1.0); MONOCYTES % (AUTO) 5.9 %; NEUTROPHILS # (AUTO) 4.9 10^3/uL (1.5-6.6); NEUTROPHILS % (AUTO) 82.5 %; RED BLOOD COUNT 3.65 10^6/uL (4.20-5.40); RED CELL DISTRIBUTION WIDTH 17.2 % (12.0-15.0)
[2016-11-21 06:13] LABS: PT - PROTHROMBIN TIME 54.2 secs (9.9-12.6)
[2016-11-21 06:21] LABS: CALCIUM 8.3 mg/dL (8.5-10.3); CREATININE 1.5 mg/dL (0.4-1.0); MAGNESIUM 2.1 mg/dL (1.7-2.8); POTASSIUM 3.8 mmol/L (3.5-5.0)
[2016-11-21 06:28] LABS: INR 4.7 (0.8-1.2)
[2016-11-21] MEDS: BUDESONIDE 0.5 MG/2 ML NEB INH SCH ×2 (08:20→19:33)
[2016-11-21] MEDS: PANTOPRAZOLE 40 MG VIAL IVP SCH ×2 (08:25→17:49)
[2016-11-21] MEDS: CARVEDILOL 12.5 MG TABLET PO SCH (11:00)
[2016-11-21] MEDS: SODIUM CHLORIDE FLUSH 0.9% 10 ML SYRINGE IVP SCH ×3 (11:00→19:59)
--- NOTE | 2016-11-21 12:17 | PROVIDER PROGRESS NOTE ---
Subjective - General Admit Date: 11/18/16 Procedure Date: 11/20/16 Post Op Days: 1 - Review of Systems Wound/Incisions: positive: Healing well Drain Type: NGT Drain Output Description: 250 Approximate mls Output: 250 General: positive: Weakness, Fatigue Pulmonary: positive: No symptoms Cardiovascular: positive: No symptoms Gastrointestinal: positive: Abdominal pain. negative: Nausea Genitourinary: positive: Retention Psychiatric: positive: No symptoms Objective - Patient Data Reviewed Vital Signs: Yes Vital Signs: Vital Signs x48h Temp Pulse Pulse Pulse Pulse Resp BP 11/21/16 10:30 121 H 99 97/61 11/21/16 10:00 18 11/21/16 09:00 36.6 C 98 18 11/21/16 08:20 97 18 11/21/16 05:00 36.4 C L 120 H 18 11/21/16 04:59 14 BP BP BP Pulse Ox 11/21/16 10:30 105/53 L 94/45 L 11/21/16 10:00 11/21/16 09:00 86/60 L 97 11/21/16 08:20 11/21/16 05:00 90/49 L 94 11/21/16 04:59 Intake & Output: Intake and Output Totals x24h 11/19/16 11/20/16 11/21/16 23:59 23:59 23:59 Intake Total 1499 1766 1516 Output Total 2125 795 375 Balance -656 897 3477 - Lab Results Lab Results: 11/21/16 05:42 11/21/16 05:42 Other Lab Results: Lab Results x24hrs 11/21/16 11/21/16 11/21/16 Range/Units 05:42 05:42 05:42 WBC 6.0 (4.8-10.8) x10^3/uL RBC 3.65 L (4.20-5.40) 10^6/uL Hgb 10.2 L (12.0-16.0) g/dL Hct 31.6 L (37.0-47.0) % MCV 86.7 (81.0-99.0) fL MCH 28.1 (27.0-31.0) pg MCHC 32.4 (32.0-36.0) g/dL RDW 17.2 H (12.0-15.0) % Plt Count 286 (130-450) 10^3/uL MPV 7.9 (7.9-10.8) fL Neut # 4.9 (1.5-6.6) 10^3/uL Lymph # 0.7 L (1.5-3.5) 10^3/uL [place] # 0.3 (0.0-1.0) 10^3/uL Eos # 0.0 (0.0-0.7) 10^3/uL Baso # 0.0 (0.0-0.1) 10^3/uL Absolute Nucleated RBC 0.00 x10^3/uL Nucleated RBCs 0.0 /100WBC PT 54.2 H (9.9-12.6) secs INR 4.7 H* (0.8-1.2) Sodium 136 (135-145) mmol/L Potassium 3.8 (3.5-5.0) mmol/L Chloride 100 L (101-111) mmol/L Carbon Dioxide 23 (21-32) mmol/L Anion Gap 13.0 (6-13) BUN 40 H (6-20) mg/dL Creatinine 1.5 H (0.4-1.0) mg/dL Estimated GFR (MDRD) 33 L (>89) Glucose 63 L (70-100) mg/dL Calcium 8.3 L (8.5-10.3) mg/dL Magnesium 2.1 (1.7-2.8) mg/dL - Current Medications Current Medications: Current Medications Generic Name Dose Route Start Last Admin Trade Name John PRN Reason Stop Dose Admin Budesonide 0.5 mg 11/19/16 07:00 11/21/16 08:20 Pulmicort INH 0.5 mg RTBID MARIAN Administration Carvedilol 12.5 mg 11/19/16 21:00 11/21/16 11:00 Coreg PO 12.5 mg BID MARIAN Administration Lactated Ringer's 1,000 mls @ 100 mls/hr 11/18/16 19:00 11/20/16 22:22 Lr IV 100 mls/hr .Q10H MARIAN Administration Acetaminophen 100 mls @ 400 mls/hr 11/19/16 17:00 11/21/16 11:00 Ofirmev IV 400 mls/hr Q6H MARIAN Administration Potassium Chloride 10 meq/ 1,005 mls @ 100 mls/hr 11/20/16 08:00 11/21/16 04:52 Sodium Chloride IV 100 mls/hr .Q10H3M MARIAN Administration Levalbuterol HCl 1.25 mg 11/19/16 07:00 11/20/16 22:15 Xopenex INH 1.25 mg Q6HR PRN Administration Asthma Morphine Sulfate/Sodium Chloride 0 mg 11/19/16 16:51 11/19/16 18:47 Morphine High School Teacher (Use High School Teacher Order Set) IV 50 mg COMBINATION MACHINE TOOL SETTER PRN Administration PAIN Protocol Pantoprazole Sodium 40 mg 11/19/16 07:00 11/21/16 08:25 Protonix IVP 40 mg BIDAC MARIAN Administration Phenol/Menthol 2 sprays 11/20/16 08:35 11/20/16 08:50 Chloraseptic MM 2 sprays Q2HR PRN Administration Throat Pain Sodium Chloride 10 ml 11/18/16 18:26 11/20/16 00:38 Normal Saline Flush 0.9% IVP 10 ml PRN PRN Administration NEEDED PER PROVIDER ORDERS Sodium Chloride 10 ml 11/18/16 22:00 11/21/16 11:00 Normal Saline Flush 0.9% IVP Not Given Q8HR MARIAN - Physical Exam Wound/Incisions: positive: Healing well, No drainage. negative: Erythema General Appearance: positive: No acute distress Respiratory: positive: No respiratory distress Cardiovascular: positive: Irregularly irregular Abdomen: positive: Other (softly distended. Non-tender to light palpation. no gaurding) Extremities: positive: No pedal edema Neurologic/Psychiatric: positive: Oriented x3 Impression/Plan - Problem List Problem List: s/p laparaoscopic right hemicolectomy POD 2 - reinsert oliva as patient has had urinary retention. Will attempt further ambulation prior to removing. - Elevated INR of 4.7 today. Unclear etiology but I am transfusing 2 U FFP. Her coumadin is held and she is not receiving any blood thinners. Her HH has remained stable and I am not concerned for intra-abdominal bleeding. - Con't NGT until abdominal distention is improved and she is having bowel function. Will change IV fluids to maintenance. - PTOT to assist with ambulation - PPI for GI prophylaxis. - Will continue to hold her home diuretics until given her slight hypotension in the immediate post operative period.
[2016-11-21] MEDS: D5.45NS W/20 MEQ KCL 1,000 ML IV SCH (12:33)
[2016-11-21] MEDS ORDERED: SODIUM CHLORIDE 0.9% 500 ML IV ONE (17:05)
[2016-11-21 18:59] LABS: INR 2.9 (0.8-1.2); PT - PROTHROMBIN TIME 32.9 secs (9.9-12.6)
[2016-11-21] MEDS ORDERED: SODIUM CHLORIDE 0.9% 250 ML IV ONE (22:20)
[2016-11-22] MEDS: D5.45NS W/20 MEQ KCL 1,000 ML IV SCH ×3 (01:50→21:54)
[2016-11-22] MEDS: SODIUM CHLORIDE FLUSH 0.9% 10 ML SYRINGE IVP PRN ×2 (04:46→06:15)
[2016-11-22] MEDS: ACETAMINOPHEN 1,000 MG/100 ML 100 ML IV SCH ×4 (04:46→22:03)
[2016-11-22 05:59] LABS: BASOPHILS % (AUTO) 0.3 %; EOSINOPHILS # (AUTO) 0.1 10^3/uL (0.0-0.7); EOSINOPHILS % (AUTO) 1.5 %; HCT - HEMATOCRIT 28.1 % (37.0-47.0); LYMPHOCYTES # (AUTO) 0.5 10^3/uL (1.5-3.5); LYMPHOCYTES % (AUTO) 14.1 %; MEAN CORPUSCULAR HEMOGLOBIN 27.8 pg (27.0-31.0); MEAN CORPUSCULAR HGB CONC 32.2 g/dL (32.0-36.0); MEAN CORPUSCULAR VOLUME 86.5 fL (81.0-99.0); MEAN PLATELET VOLUME 8.1 fL (7.9-10.8); MONOCYTES # (AUTO) 0.1 10^3/uL (0.0-1.0); MONOCYTES % (AUTO) 3.7 %; NEUTROPHILS % (AUTO) 80.4 %; NUCLEATED RED BLOOD CELLS AUTO 0.2 /100WBC; RED BLOOD COUNT 3.25 10^6/uL (4.20-5.40); RED CELL DISTRIBUTION WIDTH 17.5 % (12.0-15.0); UNCORRECTED WHITE BLOOD COUNT 3.7 x10^3/uL; WHITE BLOOD COUNT 3.7 x10^3/uL (4.8-10.8)
[2016-11-22 06:06] LABS: CALCIUM 8.1 mg/dL (8.5-10.3); CREATININE 1.5 mg/dL (0.4-1.0); MAGNESIUM 2.2 mg/dL (1.7-2.8); POTASSIUM 3.8 mmol/L (3.5-5.0)
[2016-11-22] MEDS: SODIUM CHLORIDE FLUSH 0.9% 10 ML SYRINGE IVP SCH ×3 (06:15→19:43)
[2016-11-22] MEDS: PANTOPRAZOLE 40 MG VIAL IVP SCH ×2 (06:15→16:52)
[2016-11-22] MEDS ORDERED: SENNA 528 MG/15 ML SYRUP PO PRN (08:01)
--- NOTE | 2016-11-22 08:01 | PROVIDER PROGRESS NOTE ---
Subjective - General Admit Date: 11/18/16 Procedure Date: 11/20/16 Post Op Days: 2 - Review of Systems Wound/Incisions: positive: Healing well, No drainage. negative: Erythema Drain Type: NGT Drain Output Description: 250 Approximate mls Output: 250 General: positive: Weakness, Fatigue Pulmonary: positive: No symptoms Cardiovascular: positive: No symptoms Gastrointestinal: positive: Flatus. negative: Nausea Genitourinary: positive: Retention Psychiatric: positive: No symptoms - Other Other Information/Narrative: UOP remains low. She received a total of 750 of fluid bolus yesterday in addition to maintenance fluids. 2 U of FFP transfused yesterday with improvement in her INR Objective - Patient Data Vital Signs: Vital Signs x48h Temp Pulse Resp BP Pulse Ox 11/22/16 06:21 16 11/22/16 04:53 36.3 C L 78 16 102/65 96 11/22/16 02:00 17 11/22/16 00:51 36.4 C L 92 16 103/58 L 96 Intake & Output: Intake and Output Totals x24h 11/20/16 11/21/16 11/22/16 23:59 23:59 23:59 Intake Total 1766 3513 830 Output Total 795 690 275 Balance 971 2823 555 - Lab Results Lab Results: 11/22/16 05:26 11/22/16 05:26 Other Lab Results: Lab Results x24hrs 11/22/16 11/22/16 11/21/16 Range/Units 05:26 05:26 18:27 WBC 3.7 L (4.8-10.8) x10^3/uL RBC 3.25 L (4.20-5.40) 10^6/uL Hgb 9.0 L (12.0-16.0) g/dL Hct 28.1 L (37.0-47.0) % MCV 86.5 (81.0-99.0) fL MCH 27.8 (27.0-31.0) pg MCHC 32.2 (32.0-36.0) g/dL RDW 17.5 H (12.0-15.0) % Plt Count 240 (130-450) 10^3/uL MPV 8.1 (7.9-10.8) fL Neut # 3.0 (1.5-6.6) 10^3/uL Lymph # 0.5 L (1.5-3.5) 10^3/uL [place] # 0.1 (0.0-1.0) 10^3/uL Eos # 0.1 (0.0-0.7) 10^3/uL Baso # 0.0 (0.0-0.1) 10^3/uL Absolute Nucleated RBC 0.01 x10^3/uL Nucleated RBCs 0.2 /100WBC PT 32.9 H (9.9-12.6) secs INR 2.9 H (0.8-1.2) Sodium 135 (135-145) mmol/L Potassium 3.8 (3.5-5.0) mmol/L Chloride 101 (101-111) mmol/L Carbon Dioxide 25 (21-32) mmol/L Anion Gap 9.0 (6-13) BUN 44 H (6-20) mg/dL Creatinine 1.5 H (0.4-1.0) mg/dL Estimated GFR (MDRD) 33 L (>89) Glucose 140 H (70-100) mg/dL Calcium 8.1 L (8.5-10.3) mg/dL Magnesium 2.2 (1.7-2.8) mg/dL Blood Type Antibody Screen Crossmatch IS Only 11/18/16 Range/Units 19:32 WBC (4.8-10.8) x10^3/uL RBC (4.20-5.40) 10^6/uL Hgb (12.0-16.0) g/dL Hct (37.0-47.0) % MCV (81.0-99.0) fL MCH (27.0-31.0) pg MCHC (32.0-36.0) g/dL RDW (12.0-15.0) % Plt Count (130-450) 10^3/uL MPV (7.9-10.8) fL Neut # (1.5-6.6) 10^3/uL Lymph # (1.5-3.5) 10^3/uL [place] # (0.0-1.0) 10^3/uL Eos # (0.0-0.7) 10^3/uL Baso # (0.0-0.1) 10^3/uL Absolute Nucleated RBC x10^3/uL Nucleated RBCs /100WBC PT (9.9-12.6) secs INR (0.8-1.2) Sodium (135-145) mmol/L Potassium (3.5-5.0) mmol/L Chloride (101-111) mmol/L Carbon Dioxide (21-32) mmol/L Anion Gap (6-13) BUN (6-20) mg/dL Creatinine (0.4-1.0) mg/dL Estimated GFR (MDRD) (>89) Glucose (70-100) mg/dL Calcium (8.5-10.3) mg/dL Magnesium (1.7-2.8) mg/dL Blood Type A POSITIVE Antibody Screen NEGATIVE Crossmatch IS Only See Detail - Current Medications Current Medications: Current Medications Generic Name Dose Route Start Last Admin Trade Name Freq PRN Reason Stop Dose Admin Budesonide 0.5 mg 11/19/16 07:00 11/21/16 19:33 Pulmicort INH 0.5 mg RTBID MARIAN Administration Acetaminophen 100 mls @ 400 mls/hr 11/19/16 17:00 11/22/16 04:46 Ofirmev IV 400 mls/hr Q6H MARIAN Administration Potassium Chloride/Dextrose/Sod Cl 1,000 mls @ 100 mls/hr 11/21/16 13:00 01:50 D5.45ns W/20 Meq Kcl IV 100 mls/hr .Q10H MARIAN Administration Levalbuterol HCl 1.25 mg 11/19/16 07:00 11/20/16 22:15 Xopenex INH 1.25 mg Q6HR PRN Administration Asthma Morphine Sulfate/Sodium Chloride 0 mg 11/19/16 16:51 11/19/16 18:47 Morphine Explosive Ordnance Manager (Use Explosive Ordnance Manager Order Set) IV 50 mg YARN TESTER PRN Administration PAIN Protocol Pantoprazole Sodium 40 mg 11/19/16 07:00 11/22/16 06:15 Protonix IVP 40 mg BIDAC MARIAN Administration Phenol/Menthol 2 sprays 11/20/16 08:35 11/20/16 08:50 Chloraseptic MM 2 sprays Q2HR PRN Administration Throat Pain Sodium Chloride 10 ml 11/18/16 18:26 11/22/16 06:15 Normal Saline Flush 0.9% IVP 10 ml PRN PRN Administration NEEDED PER PROVIDER ORDERS Sodium Chloride 10 ml 11/18/16 22:00 11/22/16 06:15 Normal Saline Flush 0.9% IVP Not Given Q8HR MARIAN - Physical Exam Wound/Incisions: positive: Healing well General Appearance: positive: No acute distress Respiratory: positive: No respiratory distress, Breath sounds nml Cardiovascular: positive: Irregularly irregular Abdomen: positive: Other (soft, slightly distended but improved. Incisins healing well) Extremities: positive: Pedal edema Neurologic/Psychiatric: positive: Oriented x3 Impression/Plan - Problem List Problem List: s/p laparoscopic right hemicolectomy for colonic intussusception POD 3 - NGT removed. Start ice chips. - encourage ambulation - monitor renal function. Creatine stable today from yesterday. UOP marginal. She is diuretic dependent but we will await to resume this medication until kidney function starts to improved. - INR improved s/p FFP. Will repeat tomorrow. She will likely resume anticoagulant in the next 48 hours. - await diet until she is having persistent bowel function. Will start stool softener today. - persistent low BP - her home carvidolol has been DCed and BP has improved.
[2016-11-22] MEDS: BUDESONIDE 0.5 MG/2 ML NEB INH SCH ×2 (08:07→20:40)
[2016-11-23] MEDS: ACETAMINOPHEN 1,000 MG/100 ML 100 ML IV SCH (05:07)
[2016-11-23] MEDS: PANTOPRAZOLE 40 MG VIAL IVP SCH ×2 (06:42→17:08)
[2016-11-23] MEDS: SODIUM CHLORIDE FLUSH 0.9% 10 ML SYRINGE IVP SCH ×3 (06:43→20:49)
[2016-11-23] MEDS: SODIUM CHLORIDE FLUSH 0.9% 10 ML SYRINGE IVP PRN (06:43)
[2016-11-23] MEDS: BUDESONIDE 0.5 MG/2 ML NEB INH SCH ×2 (07:22→19:12)
[2016-11-23 07:54] LABS: CREATININE 1.2 mg/dL (0.4-1.0); POTASSIUM 4.3 mmol/L (3.5-5.0)
--- NOTE | 2016-11-23 09:30 | PROVIDER PROGRESS NOTE ---
Subjective - General Admit Date: 11/18/16 Procedure Date: 11/20/16 Post Op Days: 3 Procedure Performed: Laparoscopic right hemicolectomy - Review of Systems Wound/Incisions: positive: Healing well General: positive: No symptoms, Appetite Pulmonary: positive: No symptoms Cardiovascular: positive: No symptoms Gastrointestinal: positive: Flatus. negative: Nausea Genitourinary: positive: No symptoms. negative: Hematuria Psychiatric: positive: No symptoms Objective - Patient Data Vital Signs: Vital Signs x48h Temp Pulse Pulse Resp BP Pulse Ox 11/23/16 07:52 36.3 C L 75 18 112/72 97 11/23/16 07:24 80 16 11/23/16 06:45 16 11/23/16 04:02 36.4 C L 92 16 122/86 H 97 11/23/16 02:21 17 Intake & Output: Intake and Output Totals x24h 11/21/16 11/22/16 11/23/16 23:59 23:59 23:59 Intake Total 3513 2458 677 Output Total 690 670 250 Balance 2823 1788 427 - Lab Results Lab Results: 11/22/16 05:26 11/23/16 07:38 Other Lab Results: Lab Results x24hrs 11/23/16 Range/Units 07:38 Sodium 132 L (135-145) mmol/L Potassium 4.3 (3.5-5.0) mmol/L Chloride 102 (101-111) mmol/L Carbon Dioxide 24 (21-32) mmol/L Anion Gap 6.0 (6-13) BUN 33 H (6-20) mg/dL Creatinine 1.2 H (0.4-1.0) mg/dL Estimated GFR (MDRD) 42 L (>89) Glucose 182 H (70-100) mg/dL Calcium 8.0 L (8.5-10.3) mg/dL - Current Medications Current Medications: Current Medications Generic Name Dose Route Start Last Admin Trade Name Freq PRN Reason Stop Dose Admin Budesonide 0.5 mg 11/19/16 07:00 11/23/16 07:22 Pulmicort INH 0.5 mg RTBID MARIAN Administration Acetaminophen 100 mls @ 400 mls/hr 11/19/16 17:00 11/23/16 05:07 Ofirmev IV 400 mls/hr Q6H MARIAN Administration Potassium Chloride/Dextrose/Sod Cl 1,000 mls @ 100 mls/hr 11/21/16 13:00 21:54 D5.45ns W/20 Meq Kcl IV 100 mls/hr .Q10H MARIAN Administration Levalbuterol HCl 1.25 mg 11/19/16 07:00 11/20/16 22:15 Xopenex INH 1.25 mg Q6HR PRN Administration Asthma Morphine Sulfate/Sodium Chloride 0 mg 11/19/16 16:51 11/19/16 18:47 Morphine Netezza Architect (Use Netezza Architect Order Set) IV 50 mg CHEMICAL MIXER PRN Administration PAIN Protocol Pantoprazole Sodium 40 mg 11/19/16 07:00 11/23/16 06:42 Protonix IVP 40 mg BIDAC MARIAN Administration Phenol/Menthol 2 sprays 11/20/16 08:35 11/20/16 08:50 Chloraseptic MM 2 sprays Q2HR PRN Administration Throat Pain Sodium Chloride 10 ml 11/18/16 18:26 11/23/16 06:43 Normal Saline Flush 0.9% IVP 10 ml PRN PRN Administration NEEDED PER PROVIDER ORDERS Sodium Chloride 10 ml 11/18/16 22:00 11/23/16 06:43 Normal Saline Flush 0.9% IVP Not Given Q8HR MARIAN - Physical Exam Wound/Incisions: positive: Healing well General Appearance: positive: No acute distress Respiratory: positive: No respiratory distress Cardiovascular: positive: Irregularly irregular Abdomen: positive: Other (soft, slightly distended, non-tender to palpation) Extremities: positive: Pedal edema Neurologic/Psychiatric: positive: Oriented x3 Impression/Plan - Problem List Problem List: right colon mass s/p right hemicolectomy POD 5 - start clear liquids - DC oliva - DC CHEMICAL MIXER and start oral pain meds - Will plan to resume diuretics and coumadin once she is tolerating a regular diet. Stool softeners started. - plan to discharge to [facility] in next few days. Social work consult obtained
[2016-11-23] MEDS ORDERED: oxyCOD/ACETAMIN 5 MG/325 MG TABLET PO PRN (10:07)
[2016-11-23] MEDS: D5.45NS W/20 MEQ KCL 1,000 ML IV SCH ×2 (14:24→19:54)
[2016-11-23] MEDS: LEVALBUTEROL 1.25 MG INH PRN (19:12)
[2016-11-23] MEDS ORDERED: SENNA 8.6 MG TABLET PO PRN (20:33)
[2016-11-23] MEDS ORDERED: SENNA 528 MG/15 ML SYRUP PO SCH (21:00)
[2016-11-23] MEDS: SENNA 8.6 MG TABLET PO SCH (21:10)
[2016-11-24] MEDS ORDERED: ACETAMINOPHEN 325 MG TABLET PO PRN (01:32)
[2016-11-24 06:12] LABS: CALCIUM 8.3 mg/dL (8.5-10.3); CREATININE 0.8 mg/dL (0.4-1.0); POTASSIUM 4.5 mmol/L (3.5-5.0)
[2016-11-24] MEDS: PANTOPRAZOLE 40 MG VIAL IVP SCH ×2 (06:15→18:30)
[2016-11-24] MEDS: SODIUM CHLORIDE FLUSH 0.9% 10 ML SYRINGE IVP SCH ×3 (06:15→21:22)
[2016-11-24] MEDS: BUDESONIDE 0.5 MG/2 ML NEB INH SCH ×2 (07:22→19:00)
[2016-11-24] MEDS: LEVALBUTEROL 1.25 MG INH PRN ×2 (07:23→19:00)
[2016-11-24] MEDS: SENNA 8.6 MG TABLET PO SCH ×2 (09:53→21:22)
--- NOTE | 2016-11-24 10:08 | PROVIDER PROGRESS NOTE ---
Subjective - General Admit Date: 11/18/16 Procedure Date: 11/19/16 Post Op Days: 5 Procedure Performed: Laparoscopic right hemicolectomy - Review of Systems Wound/Incisions: positive: Healing well General: positive: Weakness, Appetite (feeling hungry) Pulmonary: positive: No symptoms Cardiovascular: positive: No symptoms Gastrointestinal: positive: Flatus, Other (+ non-bloody BM). negative: Nausea Genitourinary: positive: Retention. negative: Hematuria Psychiatric: positive: Depression Objective - Patient Data Reviewed Vital Signs: Yes Vital Signs: Vital Signs x48h Temp Pulse Pulse Resp BP Pulse Ox 11/24/16 07:50 36.4 C L 112 H 16 118/91 H 98 11/24/16 07:23 87 18 11/24/16 04:19 35.9 C L 117 H 18 134/87 H 97 Intake & Output: Intake and Output Totals x24h 11/22/16 11/23/16 11/24/16 23:59 23:59 23:59 Intake Total 2458 3427 859 Output Total 670 700 600 Balance 1788 6277 259 - Lab Results Lab Results: 11/22/16 05:26 11/24/16 05:32 Other Lab Results: Lab Results x24hrs 11/24/16 Range/Units 05:32 Sodium 134 L (135-145) mmol/L Potassium 4.5 (3.5-5.0) mmol/L Chloride 104 (101-111) mmol/L Carbon Dioxide 23 (21-32) mmol/L Anion Gap 7.0 (6-13) BUN 25 H (6-20) mg/dL Creatinine 0.8 (0.4-1.0) mg/dL Estimated GFR (MDRD) 68 L (>89) Glucose 136 H (70-100) mg/dL Calcium 8.3 L (8.5-10.3) mg/dL - Current Medications Current Medications: Current Medications Generic Name Dose Route Start Last Admin Trade Name Freq PRN Reason Stop Dose Admin Budesonide 0.5 mg 11/19/16 07:00 11/24/16 07:22 Pulmicort INH 0.5 mg RTBID MARIAN Administration Potassium Chloride/Dextrose/Sod Cl 1,000 mls @ 60 mls/hr 11/23/16 14:13 19:54 D5.45ns W/20 Meq Kcl IV 60 mls/hr .[id number] MARIAN Administration Levalbuterol HCl 1.25 mg 11/19/16 07:00 11/24/16 07:23 Xopenex INH 1.25 mg Q6HR PRN Administration Asthma Pantoprazole Sodium 40 mg 11/19/16 07:00 11/24/16 06:15 Protonix IVP 40 mg BIDAC MARIAN Administration Phenol/Menthol 2 sprays 11/20/16 08:35 11/20/16 08:50 Chloraseptic MM 2 sprays Q2HR PRN Administration Throat Pain Senna 8.6 mg 11/23/16 21:00 11/24/16 09:53 Senokot PO 8.6 mg BID MARIAN Administration Sodium Chloride 10 ml 11/18/16 18:26 11/23/16 06:43 Normal Saline Flush 0.9% IVP 10 ml PRN PRN Administration NEEDED PER PROVIDER ORDERS Sodium Chloride 10 ml 11/18/16 22:00 11/24/16 06:15 Normal Saline Flush 0.9% IVP 10 ml Q8HR MARIAN Administration - Physical Exam Wound/Incisions: positive: Healing well, No drainage. negative: Erythema General Appearance: positive: No acute distress Cardiovascular: positive: Irregularly irregular Abdomen: positive: No distention, Other (soft, non-tender to light palpation) Extremities: positive: Pedal edema, Other (edema improving) Neurologic/Psychiatric: positive: Oriented x3 Impression/Plan - Problem List Problem List: s/p laparoscopic right hemicolectomy for colonic intussusception POD 5 - patient continue to have urinary retention. She had a straight cath placed last night and again cannot void. We will replace oilva and start flomax. Additionally her HCTZ is resumed. If oliva cannot be DCed prior to discharge will consider transfer to [facility] with oliva in place. - Home meds have been resumed including coumadin but with the exception of lasix. Will ensure her BP remians stable with the re-institution of Carvidolol prior to resuming lasix. - encourage ambulation - anticipate that patient will be ready for DC tomorrow or Sunday
[2016-11-24] MEDS: TAMSULOSIN 0.4 MG CAPSULE PO SCH (10:25)
[2016-11-24] MEDS: WARFARIN 2.5 MG TABLET PO SCH (14:09)
--- NOTE | 2016-11-24 14:49 | Discharge Plan ---
Discharge Plan Disposition: 03 [facility] DC/Xfer Condition: Fair Diet: Regular Activity Restrictions: Activity as Tolerated Shower Restrictions: No Driving Restrictions: No Assistance Devices: Walker Weight Bearing: Full Weight Instruction Topics: Colorectal Surg Recovery Additional Instructions or Follow Up instructions: take stool softeners daily until you see your surgeon in follow up call Dr. Franco's office for fever, chills, worsening abdominal pain, increasing weakness or blood in the stool Follow up with Dr. Franco 2 weeks after discharge Follow up with Dr. Mcarthur 1 week after discharge for medication review and INR check No Smoking: If you smoke, Please STOP! Call for help. Follow-up with: Mor Mcarthur MD [Primary Care Provider] - 1 Week SEGUN FRANCO MD [Provider Admit Priv/Credential] - 2 Weeks
[2016-11-24] MEDS: TRIAMT/HCTZ 37.5 MG/25 MG CAPSULE PO SCH (16:18)
[2016-11-24] MEDS: SODIUM CHLORIDE FLUSH 0.9% 10 ML SYRINGE IVP PRN (18:31)
[2016-11-24] MEDS: FERROUS GLUCONATE 324 MG TABLET PO SCH (21:22)
[2016-11-24] MEDS: POTASSIUM CHLORIDE 10 MEQ CAPSULE PO SCH (21:22)
[2016-11-24] MEDS: CALCIUM CARBONATE CHEW 500 MG TABLET PO SCH (21:23)
[2016-11-25] MEDS: SODIUM CHLORIDE INHALATION 3 ML NEB INH PRN ×3 (04:07→13:35)
[2016-11-25] MEDS: LEVALBUTEROL 1.25 MG INH PRN (04:07)
[2016-11-25] MEDS: guaiFENesin/DEXTROMETHORPHAN 10 ML UDC PO PRN ×2 (05:10→14:08)
[2016-11-25] MEDS: PANTOPRAZOLE 40 MG VIAL IVP SCH ×2 (06:13→16:42)
[2016-11-25] MEDS: SODIUM CHLORIDE FLUSH 0.9% 10 ML SYRINGE IVP SCH ×3 (06:14→20:07)
[2016-11-25] MEDS: SODIUM CHLORIDE FLUSH 0.9% 10 ML SYRINGE IVP PRN ×2 (06:14→16:42)
[2016-11-25 07:11] LABS: INR 2.8 (0.8-1.2); PT - PROTHROMBIN TIME 31.8 secs (9.9-12.6)
[2016-11-25] MEDS: BUDESONIDE 0.5 MG/2 ML NEB INH SCH ×2 (07:28→20:09)
[2016-11-25] MEDS: ASCORBIC ACID CHEW 500 MG TABLET PO SCH (08:23)
[2016-11-25] MEDS: TAMSULOSIN 0.4 MG CAPSULE PO SCH (08:23)
[2016-11-25] MEDS: POTASSIUM CHLORIDE 10 MEQ CAPSULE PO SCH ×2 (08:23→20:05)
[2016-11-25] MEDS: TRIAMT/HCTZ 37.5 MG/25 MG CAPSULE PO SCH (08:23)
[2016-11-25] MEDS: SENNA 8.6 MG TABLET PO SCH ×2 (08:23→20:13)
[2016-11-25] MEDS: FERROUS GLUCONATE 324 MG TABLET PO SCH ×2 (08:23→20:04)
[2016-11-25] MEDS: CALCIUM CARBONATE CHEW 500 MG TABLET PO SCH ×2 (08:24→20:07)
[2016-11-25] MEDS ORDERED: TRIAMT/HCTZ 37.5 MG/25 MG CAPSULE PO SCH (09:00)
--- NOTE | 2016-11-25 10:43 | PROVIDER PROGRESS NOTE ---
Subjective - General Admit Date: 11/18/16 Procedure Date: 11/19/16 Post Op Days: 6 Procedure Performed: Laparoscopic right hemicolectomy - Review of Systems Wound/Incisions: positive: Healing well, No drainage. negative: Erythema General: positive: Weakness, Appetite (feeling hungry) Pulmonary: positive: No symptoms Cardiovascular: positive: No symptoms Gastrointestinal: positive: Flatus, Other (+ non-bloody BM). negative: Nausea Genitourinary: positive: Retention. negative: Hematuria Psychiatric: positive: Depression Objective - Patient Data Vital Signs: Vital Signs x48h Temp Pulse Pulse Resp BP Pulse Ox 11/25/16 08:21 36.3 C L 139 H 18 121/87 H 95 11/25/16 07:37 125 H 20 11/25/16 04:08 89 20 11/25/16 04:01 36.6 C 76 24 105/68 95 Intake & Output: Intake and Output Totals x24h 11/23/16 11/24/16 11/25/16 23:59 23:59 23:59 Intake Total 3427 1575 740 Output Total 700 1825 750 Balance 2727 -250 -10 - Lab Results Lab Results: 11/22/16 05:26 11/24/16 05:32 Other Lab Results: Lab Results x24hrs 11/25/16 Range/Units 06:34 PT 31.8 H (9.9-12.6) secs INR 2.8 H (0.8-1.2) - Current Medications Current Medications: Current Medications Generic Name Dose Route Start Last Admin Trade Name Freq PRN Reason Stop Dose Admin Ascorbic Acid 500 mg 11/25/16 09:00 11/25/16 08:23 Vitamin C PO 500 mg DAILY MARIAN Administration Budesonide 0.5 mg 11/19/16 07:00 11/25/16 07:28 Pulmicort INH 0.5 mg RTBID MARIAN Administration Calcium Carbonate/Glycine 750 mg 11/24/16 21:00 11/25/16 08:24 Tums PO 750 mg BID MARIAN Administration Ferrous Gluconate 324 mg 11/24/16 21:00 11/25/16 08:23 Fergon PO 324 mg BID MARIAN Administration Guaifenesin 10 ml 11/25/16 04:53 11/25/16 05:10 Robitussin Dm PO 10 ml Q6HR PRN Administration Cough Levalbuterol HCl 1.25 mg 11/19/16 07:00 11/25/16 04:07 Xopenex INH 1.25 mg Q6HR PRN Administration Asthma Pantoprazole Sodium 40 mg 11/19/16 07:00 11/25/16 06:13 Protonix IVP 40 mg BIDAC MARIAN Administration Phenol/Menthol 2 sprays 11/20/16 08:35 11/20/16 08:50 Chloraseptic MM 2 sprays Q2HR PRN Administration Throat Pain Potassium Chloride 10 meq 11/24/16 21:00 11/25/16 08:23 Micro-K PO 10 meq BID MARIAN Administration Senna 8.6 mg 11/23/16 21:00 11/25/16 08:23 Senokot PO 8.6 mg BID MARIAN Administration Sodium Chloride 10 ml 11/18/16 18:26 11/25/16 06:14 Normal Saline Flush 0.9% IVP 10 ml PRN PRN Administration NEEDED PER PROVIDER ORDERS Sodium Chloride 10 ml 11/18/16 22:00 11/25/16 06:14 Normal Saline Flush 0.9% IVP 10 ml Q8HR MARIAN Administration Sodium Chloride 3 ml 11/19/16 07:01 11/25/16 07:28 Normal Saline INH 3 ml PRN PRN Administration XOPENEX NEB TX Tamsulosin HCl 0.4 mg 11/24/16 11:00 11/25/16 08:23 Flomax PO 0.4 mg DAILY MARIAN Administration Triamterene/HCTZ 1 cap 11/24/16 15:48 11/25/16 08:23 Dyazide PO 1 cap DAILY MARIAN Administration Warfarin Sodium 2.5 mg 11/24/16 13:00 11/24/16 14:09 Coumadin PO 2.5 mg SUMOTUTHFRSA MARIAN Administration - Physical Exam Wound/Incisions: positive: Healing well Respiratory: positive: Other (diminished breath sounds.) Impression/Plan - Problem List Problem List: 1) S/P RIGHT HEMIcolectomy pod#6. Tolerating diet and having bowel movements. 2) Sob possible secondary to her asthma vs fluid overload. Check cxr. 3) Afib on coumadin. HR sometimes in the 100s. Will have hospitalist consult on patient.
--- NOTE | 2016-11-25 10:58 | XRAY Preliminary Report ---
Exam: XR Chest 2 View PA/LAT IMPRESSION: 1. Developing opacity at the right base suggestive of consolidation versus atelectasis. 2. Stable [id number] bilateral effusions and atelectasis versus consolidation at the left base . 3. Stable mild cardiomegaly. [facility] SITE ID: [id number]
--- NOTE | 2016-11-25 11:01 | XRAY Report ---
EXAM: CHEST RADIOGRAPHY EXAM DATE: 11/25/2016 10:42 AM. CLINICAL HISTORY: Shortness of breath. COMPARISON: 11/20/2016. TECHNIQUE: 2 views. FINDINGS: Lungs/Pleura: There is developing opacity in the right base. Stable small to moderate bilateral effus ions. Likely underlying atelectasis versus consolidation seen in the retrocardiac left base, stable. Mediastinum: Stable mild cardiomegaly. Other: None. IMPRESSION: 1. Developing opacity at the right base suggestive of consolidation versus atelectasis. 2. Stable [id number] bilateral effusions and atelectasis versus consolidation at the left base . 3. Stable mild cardiomegaly. [facility] Referring Provider Line: [phone] SITE ID: [id number]
[2016-11-25 11:09] LABS: POTASSIUM 4.3 mmol/L (3.5-5.0)
[2016-11-25 11:10] LABS: CALCIUM 8.6 mg/dL (8.5-10.3); CREATININE 0.9 mg/dL (0.4-1.0)
[2016-11-25] MEDS ORDERED: LEVALBUTEROL 1.25 MG INH PRN (12:34)
[2016-11-25] MEDS: CARVEDILOL 12.5 MG TABLET PO SCH ×2 (12:56→20:06)
[2016-11-25] MEDS: WARFARIN 2.5 MG TABLET PO SCH (12:56)
[2016-11-25] MEDS: LEVALBUTEROL 1.25 MG INH SCH ×2 (13:35→20:10)
[2016-11-26] MEDS: PANTOPRAZOLE 40 MG VIAL IVP SCH ×2 (06:03→15:36)
[2016-11-26] MEDS: SODIUM CHLORIDE FLUSH 0.9% 10 ML SYRINGE IVP SCH ×3 (06:03→20:57)
[2016-11-26 07:15] LABS: POTASSIUM 4.7 mmol/L (3.5-5.0)
[2016-11-26 07:16] LABS: INR 2.5 (0.8-1.2); PT - PROTHROMBIN TIME 28.3 secs (9.9-12.6)
[2016-11-26] MEDS: LEVALBUTEROL 1.25 MG INH SCH ×3 (07:26→19:51)
[2016-11-26] MEDS: BUDESONIDE 0.5 MG/2 ML NEB INH SCH ×2 (07:26→19:51)
--- NOTE | 2016-11-26 08:13 | PROVIDER PROGRESS NOTE ---
Assessment/Plan - Problem List (1) Dyspnea Assessment/Plan: could be multifactorial--stable a. afib with RVR: resumed coreg; reviewed tele today; HR below 100; improving b. could be mild dehydration that triggered rvr; dc'd triameterene/HCTZ c. history of asthma-- on neb and pulmicort; stable; d. CXR showed atelactesis vs consolidation; no F/C, respiratory distress; provided IS e. unlike PE; no hypoxia, chest pain; even if it's PE, she has been on coumadin for afib; INR therapeutic (2) Chronic atrial fibrillation with RVR Assessment/Plan: see above (3) History of asthma Assessment/Plan: see above (4) Chronic anticoagulation Assessment/Plan: on coumadin per home dose; INR stable (5) Urinary retention Assessment/Plan: on flomax; likely 2/2 recent abdominal surgery followed by surgery team (6) Swelling of right hand Assessment/Plan: also noted dependent edema on right arm elevate extremity frequently no need to check for DVT since patient is already on therapeutic coumadin treatment for afib. - Current Meds Current Meds: Current Medications Generic Name Dose Route Start Last Admin Trade Name Freq PRN Reason Stop Dose Admin Ascorbic Acid 500 mg 11/25/16 09:00 11/25/16 08:23 Vitamin C PO 500 mg DAILY MARIAN Administration Budesonide 0.5 mg 11/19/16 07:00 11/26/16 07:26 Pulmicort INH 0.5 mg RTBID MARIAN Administration Calcium Carbonate/Glycine 750 mg 11/24/16 21:00 11/25/16 20:07 Tums PO 750 mg BID MARIAN Administration Carvedilol 12.5 mg 11/25/16 13:00 11/25/16 20:06 Coreg PO 12.5 mg BID MARIAN Administration Ferrous Gluconate 324 mg 11/24/16 21:00 11/25/16 20:04 Fergon PO 324 mg BID MARIAN Administration Guaifenesin 10 ml 11/25/16 04:53 11/25/16 14:08 Robitussin Dm PO 10 ml Q6HR PRN Administration Cough Levalbuterol HCl 1.25 mg 11/25/16 14:00 11/26/16 07:26 Xopenex INH 1.25 mg RTTID MARIAN Administration Pantoprazole Sodium 40 mg 11/19/16 07:00 11/26/16 06:03 Protonix IVP 40 mg BIDAC MARIAN Administration Phenol/Menthol 2 sprays 11/20/16 08:35 11/20/16 08:50 Chloraseptic MM 2 sprays Q2HR PRN Administration Throat Pain Potassium Chloride 10 meq 11/24/16 21:00 11/25/16 20:05 Micro-K PO 10 meq BID MARIAN Administration Senna 8.6 mg 11/23/16 21:00 11/25/16 20:13 Senokot PO Not Given BID MARIAN Sodium Chloride 10 ml 11/18/16 18:26 11/25/16 16:42 Normal Saline Flush 0.9% IVP 20 ml PRN PRN Administration NEEDED PER PROVIDER ORDERS Sodium Chloride 10 ml 11/18/16 22:00 11/26/16 06:03 Normal Saline Flush 0.9% IVP 10 ml Q8HR MARIAN Administration Sodium Chloride 3 ml 11/25/16 12:34 11/25/16 13:35 Normal Saline INH 3 ml PRN PRN Administration Levalbuterol treatment Tamsulosin HCl 0.4 mg 11/24/16 11:00 11/25/16 08:23 Flomax PO 0.4 mg DAILY MARIAN Administration Warfarin Sodium 2.5 mg 11/24/16 13:00 11/25/16 12:56 Coumadin PO 2.5 mg SUMOTUTHFRSA MARIAN Administration - Lab Result Fish Bone Diagrams: 11/22/16 05:26 11/26/16 06:53 - EKG Results EKG Findings: reviewed tele today; afib, HR < 100 - Diagnostic Imaging Results Diagnostic Imaging Results: Final report reviewed - Additional Planning Condition/Complexity: Improved My Orders: My Active Orders 11/25/16 12:08 Incentive Spirometry - RT [RC] 5XD 11/25/16 12:34 Levalbuterol [Xopenex] 1.25 mg INH Q4H PRN Sodium Chloride [Normal Saline] 3 ml INH PRN PRN 11/25/16 13:00 Carvedilol [Coreg] 12.5 mg PO BID 11/25/16 14:00 Levalbuterol [Xopenex] 1.25 mg INH RTTID Plan Discussed with:: Patient Time Spent: 15-30 minutes Subjective - Subjective Patient Reports: Shortness of Breath (no cough spell, still feel some shortness of breath), Other (my right hand swelling) Nursing Reports: No Complaints Objective Vital Signs: Vital Signs - 24 hr 11/25/16 11/25/16 11/25/16 08:21 13:00 13:30 Temperature 36.3 C L 36.4 C L Heart Rate 141 H Heart Rate [ 139 H 140 H Brachial] Respiratory 18 18 20 Rate Blood Pressure 121/87 H 121/73 [Right Brachial artery] O2 Saturation 95 98 11/25/16 11/25/16 11/25/16 16:08 20:10 20:32 Temperature 36.4 C L 36.9 C Heart Rate 94 Heart Rate [ 54 L 76 Brachial] Respiratory 16 20 16 Rate Blood Pressure 120/67 143/92 H [Right Brachial artery] O2 Saturation 93 98 11/25/16 11/26/16 11/26/16 23:58 04:56 07:28 Temperature 36.4 C L 36.4 C L Heart Rate 92 Heart Rate [ 68 71 Brachial] Respiratory 16 18 20 Rate Blood Pressure 120/62 109/54 L [Right Brachial artery] O2 Saturation 99 97 Oxygen O2 Source Room air I&O (Last 24 Hrs): Intake and Output Totals x24h 11/24/16 11/25/16 11/26/16 23:59 23:59 23:59 Intake Total 1575 1670 Output Total 1825 1300 600 Balance -250 370 -600 General: Alert, Oriented x3, Cooperative HEENT: Atraumatic, PERRLA Neck: Supple Neuro: Non Focal Cardiovascular: Normal S1, Normal S2, Other (irregular heart rate/rhythm) Abdomen: Normal bowel sounds, Soft, Other (incision site clean) Extremities: Other (right hand is swelling, dependent edema noted on upper arm; good radial pulse) Skin: No rashes - Results Results: Laboratory Results WBC 3.7 x10^3/uL (4.8-10.8) L 11/22/16 05:26 RBC 3.25 10^6/uL (4.20-5.40) L 11/22/16 05:26 Hgb 9.0 g/dL (12.0-16.0) L 11/22/16 05:26 Hct 28.1 % (37.0-47.0) L 11/22/16 05:26 MCV 86.5 fL (81.0-99.0) 11/22/16 05:26 MCH 27.8 pg (27.0-31.0) 11/22/16 05:26 MCHC 32.2 g/dL (32.0-36.0) 11/22/16 05:26 RDW 17.5 % (12.0-15.0) H 11/22/16 05:26 Plt Count 240 10^3/uL (130-450) 11/22/16 05:26 MPV 8.1 fL (7.9-10.8) 11/22/16 05:26 Neut # 3.0 10^3/uL (1.5-6.6) 11/22/16 05:26 Lymph # 0.5 10^3/uL (1.5-3.5) L 11/22/16 05:26 [place] # 0.1 10^3/uL (0.0-1.0) 11/22/16 05:26 Eos # 0.1 10^3/uL (0.0-0.7) 11/22/16 05:26 Baso # 0.0 10^3/uL (0.0-0.1) 11/22/16 05:26 Absolute Nucleated RBC 0.01 x10^3/uL 11/22/16 05:26 Nucleated RBCs 0.2 /100WBC 11/22/16 05:26 PT 28.3 secs (9.9-12.6) H 11/26/16 06:53 INR 2.5 (0.8-1.2) H 11/26/16 06:53 APTT 37.2 secs (24.9-33.3) H 11/19/16 06:25 Sodium 137 mmol/L (135-145) 11/26/16 06:53 Potassium 4.7 mmol/L (3.5-5.0) 11/26/16 06:53 Chloride 105 mmol/L (101-111) 11/26/16 06:53 Carbon Dioxide 29 mmol/L (21-32) 11/26/16 06:53 Anion Gap 3.0 (6-13) L 11/26/16 06:53 BUN 22 mg/dL (6-20) H 11/26/16 06:53 Creatinine 1.0 mg/dL (0.4-1.0) 11/26/16 06:53 Estimated GFR (MDRD) 52 (>89) L 11/26/16 06:53 Glucose 104 mg/dL (70-100) H 11/26/16 06:53 Lactic Acid 1.2 mmol/L (0.5-2.2) 11/18/16 14:37 Calcium 9.0 mg/dL (8.5-10.3) 11/26/16 06:53 Magnesium 2.2 mg/dL (1.7-2.8) 11/22/16 05:26 Total Bilirubin 0.6 mg/dL (0.2-1.0) 11/18/16 10:10 AST 21 IU/L (10-42) 11/18/16 10:10 ALT 16 IU/L (10-60) 11/18/16 10:10 Alkaline Phosphatase 47 IU/L (42-121) 11/18/16 10:10 Total Protein 6.5 g/dL (6.7-8.2) L 11/18/16 10:10 Albumin 3.2 g/dL (3.2-5.5) 11/18/16 10:10 Globulin 3.3 g/dL (2.1-4.2) 11/18/16 10:10 Albumin/Globulin Ratio 1.0 (1.0-2.2) 11/18/16 10:10 Lipase 27 U/L (22-51) 11/18/16 10:10 Urine Color YELLOW 11/18/16 11:00 Urine Clarity CLOUDY (CLEAR) 11/18/16 11:00 Urine pH 5.5 PH (5.0-7.5) 11/18/16 11:00 Ur Specific [place] 1.025 (1.002-1.030) 11/18/16 11:00 Urine Protein TRACE mg/dL (NEGATIVE) 11/18/16 11:00 Urine Glucose (UA) NEGATIVE mg/dL (NEGATIVE) 11/18/16 11:00 Urine Ketones NEGATIVE mg/dL (NEGATIVE) 11/18/16 11:00 Urine Occult Blood TRACE-LYSE (NEGATIVE) 11/18/16 11:00 Urine Nitrite NEGATIVE (NEGATIVE) 11/18/16 11:00 Urine Bilirubin NEGATIVE (NEGATIVE) 11/18/16 11:00 Urine Urobilinogen 0.2 (NORMAL) E.U./dL (NORMAL) 11/18/16 11:00 Ur Leukocyte Esterase MODERATE (NEGATIVE) H 11/18/16 11:00 Ur Microscopic Review NOT INDICATED 11/18/16 11:00 Urine Culture Comments NOT INDICATED 11/18/16 11:00 Blood Type A POSITIVE 11/18/16 19:32 Antibody Screen NEGATIVE 11/18/16 19:32 Crossmatch IS Only See Detail 11/18/16 19:32
[2016-11-26] MEDS: CARVEDILOL 12.5 MG TABLET PO SCH ×2 (08:58→20:57)
[2016-11-26] MEDS: POTASSIUM CHLORIDE 10 MEQ CAPSULE PO SCH (08:59)
[2016-11-26] MEDS: ASCORBIC ACID CHEW 500 MG TABLET PO SCH (08:59)
[2016-11-26] MEDS: FERROUS GLUCONATE 324 MG TABLET PO SCH ×2 (08:59→20:57)
[2016-11-26] MEDS: TAMSULOSIN 0.4 MG CAPSULE PO SCH (09:00)
[2016-11-26] MEDS: SENNA 8.6 MG TABLET PO SCH ×2 (09:00→20:57)
[2016-11-26] MEDS: CALCIUM CARBONATE CHEW 500 MG TABLET PO SCH ×2 (09:01→20:58)
--- NOTE | 2016-11-26 09:08 | XRAY Preliminary Report ---
Exam: XR Chest 2 View PA/LAT IMPRESSION: Persistent small bilateral pleural effusions with adjacent atelectasis. [facility] SITE ID: [id number]
--- NOTE | 2016-11-26 09:10 | XRAY Report ---
EXAM: CHEST RADIOGRAPHY EXAM DATE: 11/26/2016 06:37 AM. CLINICAL HISTORY: Pleural effusions. COMPARISON: 11/25/2016. 11/20/2016. TECHNIQUE: 2 views. FINDINGS: Lungs/Pleura: There are persistent small bilateral pleural effusions with adjacent atelectasis, simil ar appearance to the prior exam. Compared to the prior exam, slightly improved aeration of the right lung base. No pneumothorax. Mediastinum: Stable cardiac and mediastinal silhouettes. There is atherosclerotic calcification in th e aortic arch. Other: None. IMPRESSION: Persistent small bilateral pleural effusions with adjacent atelectasis. [facility] Referring Provider Line: [phone] SITE ID: [id number]
[2016-11-26] MEDS: SODIUM CHLORIDE INHALATION 3 ML NEB INH PRN (13:31)
[2016-11-26] MEDS: WARFARIN 2.5 MG TABLET PO SCH (15:35)
--- NOTE | 2016-11-27 03:35 | PROVIDER PROGRESS NOTE ---
Subjective - General Admit Date: 11/18/16 Procedure Date: 11/19/16 Post Op Days: 8 Procedure Performed: Laparoscopic right hemicolectomy - Review of Systems Wound/Incisions: positive: Healing well Drain Type: NGT Drain Output Description: 250 Approximate mls Output: 250 Pulmonary: positive: Shortness of breath Cardiovascular: positive: No symptoms Gastrointestinal: positive: Flatus, Other (+ non-bloody BM). negative: Nausea Genitourinary: positive: Retention. negative: Hematuria Psychiatric: positive: Depression Objective - Patient Data Vital Signs: Vital Signs x48h Temp Pulse Pulse Resp BP Pulse Ox 11/27/16 01:00 36.8 C 74 16 115/59 L 97 11/26/16 19:51 88 20 Intake & Output: Intake and Output Totals x24h 11/25/16 11/26/16 11/27/16 23:59 23:59 23:59 Intake Total 1670 420 Output Total 1300 1455 175 Balance 370 -1035 -175 - Lab Results Lab Results: 11/22/16 05:26 11/26/16 06:53 Other Lab Results: Lab Results x24hrs 11/26/16 11/26/16 Range/Units 06:53 06:53 PT 28.3 H (9.9-12.6) secs INR 2.5 H (0.8-1.2) Sodium 137 (135-145) mmol/L Potassium 4.7 (3.5-5.0) mmol/L Chloride 105 (101-111) mmol/L Carbon Dioxide 29 (21-32) mmol/L Anion Gap 3.0 L (6-13) BUN 22 H (6-20) mg/dL Creatinine 1.0 (0.4-1.0) mg/dL Estimated GFR (MDRD) 52 L (>89) Glucose 104 H (70-100) mg/dL Calcium 9.0 (8.5-10.3) mg/dL - Current Medications Current Medications: Current Medications Generic Name Dose Route Start Last Admin Trade Name Freq PRN Reason Stop Dose Admin Ascorbic Acid 500 mg 11/25/16 09:00 11/26/16 08:59 Vitamin C PO 500 mg DAILY MARIAN Administration Budesonide 0.5 mg 11/19/16 07:00 11/26/16 19:51 Pulmicort INH 0.5 mg RTBID MARIAN Administration Calcium Carbonate/Glycine 750 mg 11/24/16 21:00 11/26/16 20:58 Tums PO 750 mg BID MARIAN Administration Carvedilol 12.5 mg 11/25/16 13:00 11/26/16 20:57 Coreg PO 12.5 mg BID MARIAN Administration Ferrous Gluconate 324 mg 11/24/16 21:00 11/26/16 20:57 Fergon PO 324 mg BID MARIAN Administration Guaifenesin 10 ml 11/25/16 04:53 11/25/16 14:08 Robitussin Dm PO 10 ml Q6HR PRN Administration Cough Levalbuterol HCl 1.25 mg 11/25/16 14:00 11/26/16 19:51 Xopenex INH 1.25 mg RTTID MARIAN Administration Pantoprazole Sodium 40 mg 11/19/16 07:00 11/26/16 15:36 Protonix IVP 40 mg BIDAC MARIAN Administration Phenol/Menthol 2 sprays 11/20/16 08:35 11/20/16 08:50 Chloraseptic MM 2 sprays Q2HR PRN Administration Throat Pain Senna 8.6 mg 11/23/16 21:00 11/26/16 20:57 Senokot PO Not Given BID MARIAN Sodium Chloride 10 ml 11/18/16 18:26 11/25/16 16:42 Normal Saline Flush 0.9% IVP 20 ml PRN PRN Administration NEEDED PER PROVIDER ORDERS Sodium Chloride 10 ml 11/18/16 22:00 11/26/16 20:57 Normal Saline Flush 0.9% IVP 10 ml Q8HR MARIAN Administration Sodium Chloride 3 ml 11/25/16 12:34 11/26/16 13:31 Normal Saline INH 3 ml PRN PRN Administration Levalbuterol treatment Tamsulosin HCl 0.4 mg 11/24/16 11:00 11/26/16 09:00 Flomax PO 0.4 mg DAILY MARIAN Administration Warfarin Sodium 2.5 mg 11/24/16 13:00 11/26/16 15:35 Coumadin PO 2.5 mg SUMOTUTHFRSA MARIAN Administration - Physical Exam Wound/Incisions: positive: Healing well Abdomen: positive: Non-tender, No distention Impression/Plan - Problem List Problem List: 1) S/P RIGHT hemicolectomy. Bowel function returned and is tolerating regular diet. 2) SOB. Sats good. Poor inspiration on is. CXR atelectasis and pleural effusions. Mobilization and is use. 3) A fib. rate better controled now. 4) urinary retention. oliva catheter replaced.
[2016-11-27 05:35] LABS: CALCIUM 9.1 mg/dL (8.5-10.3); CREATININE 1.1 mg/dL (0.4-1.0)
[2016-11-27] MEDS: PANTOPRAZOLE 40 MG VIAL IVP SCH (06:46)
[2016-11-27] MEDS: SODIUM CHLORIDE FLUSH 0.9% 10 ML SYRINGE IVP SCH ×2 (06:46→14:27)
[2016-11-27] MEDS: SODIUM CHLORIDE FLUSH 0.9% 10 ML SYRINGE IVP PRN (06:46)
[2016-11-27] MEDS: BUDESONIDE 0.5 MG/2 ML NEB INH SCH (07:50)
[2016-11-27] MEDS: LEVALBUTEROL 1.25 MG INH SCH (07:50)
[2016-11-27] MEDS: CARVEDILOL 12.5 MG TABLET PO SCH (10:17)
[2016-11-27] MEDS: ASCORBIC ACID CHEW 500 MG TABLET PO SCH (10:17)
[2016-11-27] MEDS: SENNA 8.6 MG TABLET PO SCH (10:17)
[2016-11-27] MEDS: FERROUS GLUCONATE 324 MG TABLET PO SCH (10:17)
[2016-11-27] MEDS: TAMSULOSIN 0.4 MG CAPSULE PO SCH (10:18)
[2016-11-27] MEDS: CALCIUM CARBONATE CHEW 500 MG TABLET PO SCH (10:18)
--- NOTE | 2016-11-27 10:20 | PROVIDER PROGRESS NOTE ---
Assessment/Plan - Problem List (1) Dyspnea Assessment/Plan: could be multifactorial--stable a. afib with RVR: resumed coreg; reviewed tele today; HR below 100; improving b. could be mild dehydration that triggered rvr; dc'd triameterene/HCTZ, lasix c. history of asthma-- on neb and pulmicort; stable; d. CXR showed atelactesis vs consolidation; no F/C, respiratory distress; provided IS e. unlike PE; no hypoxia, chest pain; even if it's PE, she has been on coumadin for afib; INR therapeutic hospitalist will sign off; re-consult as needed. Thanks (2) Chronic atrial fibrillation with RVR Assessment/Plan: see above (3) History of asthma Assessment/Plan: see above (4) Chronic anticoagulation Assessment/Plan: on coumadin per home dose; INR stable (5) Urinary retention Assessment/Plan: on flomax; likely 2/2 recent abdominal surgery per surgeon; followed by surgery team (6) Swelling of right hand Assessment/Plan: also noted dependent edema on right arm-- improving elevate extremity frequently no need to check for DVT since patient is already on therapeutic coumadin treatment for afib. - Current Meds Current Meds: Current Medications Generic Name Dose Route Start Last Admin Trade Name Freq PRN Reason Stop Dose Admin Ascorbic Acid 500 mg 11/25/16 09:00 11/26/16 08:59 Vitamin C PO 500 mg DAILY MARIAN Administration Budesonide 0.5 mg 11/19/16 07:00 11/27/16 07:50 Pulmicort INH 0.5 mg RTBID MARIAN Administration Calcium Carbonate/Glycine 750 mg 11/24/16 21:00 11/26/16 20:58 Tums PO 750 mg BID MARIAN Administration Carvedilol 12.5 mg 11/25/16 13:00 11/26/16 20:57 Coreg PO 12.5 mg BID MARIAN Administration Ferrous Gluconate 324 mg 11/24/16 21:00 11/26/16 20:57 Fergon PO 324 mg BID MARIAN Administration Guaifenesin 10 ml 11/25/16 04:53 11/25/16 14:08 Robitussin Dm PO 10 ml Q6HR PRN Administration Cough Levalbuterol HCl 1.25 mg 11/25/16 14:00 11/27/16 07:50 Xopenex INH 1.25 mg RTTID MARIAN Administration Pantoprazole Sodium 40 mg 11/19/16 07:00 11/27/16 06:46 Protonix IVP 40 mg BIDAC MARIAN Administration Phenol/Menthol 2 sprays 11/20/16 08:35 11/20/16 08:50 Chloraseptic MM 2 sprays Q2HR PRN Administration Throat Pain Senna 8.6 mg 11/23/16 21:00 11/26/16 20:57 Senokot PO Not Given BID MARIAN Sodium Chloride 10 ml 11/18/16 18:26 11/27/16 06:46 Normal Saline Flush 0.9% IVP 10 ml PRN PRN Administration NEEDED PER PROVIDER ORDERS Sodium Chloride 10 ml 11/18/16 22:00 11/27/16 06:46 Normal Saline Flush 0.9% IVP 10 ml Q8HR MARIAN Administration Sodium Chloride 3 ml 11/25/16 12:34 11/26/16 13:31 Normal Saline INH 3 ml PRN PRN Administration Levalbuterol treatment Tamsulosin HCl 0.4 mg 11/24/16 11:00 11/26/16 09:00 Flomax PO 0.4 mg DAILY MARIAN Administration Warfarin Sodium 2.5 mg 11/24/16 13:00 11/26/16 15:35 Coumadin PO 2.5 mg SUMOTUTHFRSA MARIAN Administration - Lab Result Fish Bone Diagrams: 11/22/16 05:26 11/27/16 04:56 - EKG Results EKG Comparison: Other (tele reviewed; afib; HR 90s) - Additional Planning Condition/Complexity: Stable Plan Discussed with:: Patient Time Spent: 15-30 minutes Subjective - Subjective Patient Reports: Other (less swelling on right hand) Nursing Reports: No Complaints Objective Vital Signs: Vital Signs - 24 hr 11/26/16 11/26/16 11/26/16 12:52 13:32 15:42 Temperature 36.5 C 36.6 C Heart Rate 95 Heart Rate [ 86 70 Brachial] Respiratory 20 20 18 Rate Blood Pressure 119/84 H 83/57 L [Right Brachial artery] O2 Saturation 100 100 11/26/16 11/26/16 11/27/16 16:09 19:51 01:00 Temperature 36.8 C Heart Rate 88 Heart Rate [ 74 74 Brachial] Respiratory 20 20 16 Rate Blood Pressure 95/58 L 115/59 L [Right Brachial artery] O2 Saturation 100 97 11/27/16 11/27/16 11/27/16 05:00 07:50 08:26 Temperature 36.9 C Heart Rate 84 Heart Rate [ 86 80 Brachial] Respiratory 18 18 16 Rate Blood Pressure 122/69 130/74 [Right Brachial artery] O2 Saturation 96 93 11/27/16 08:54 Temperature 36.5 C Heart Rate Heart Rate [ Brachial] Respiratory Rate Blood Pressure [Right Brachial artery] O2 Saturation Oxygen O2 Source Room air I&O (Last 24 Hrs): Intake and Output Totals x24h 11/25/16 11/26/16 11/27/16 23:59 23:59 23:59 Intake Total 1670 420 550 Output Total 1300 1455 1100 Balance 370 -1035 -550 General: Alert, Oriented x3, Cooperative HEENT: Atraumatic, PERRLA Neck: Supple Neuro: Non Focal Cardiovascular: Normal S1, Normal S2, Other (irregular heart rate and rhythm) Respiratory: Chest non-tender, No respiratory distress, Wheezes, Other (just had neb treatment; expiratory wheezes noted today) Abdomen: Normal bowel sounds, Soft Extremities: No clubbing, No cyanosis, Other (both legs swelling not pitting edema which is chronic per patient) - Results Results: Laboratory Results WBC 3.7 x10^3/uL (4.8-10.8) L 11/22/16 05:26 RBC 3.25 10^6/uL (4.20-5.40) L 11/22/16 05:26 Hgb 9.0 g/dL (12.0-16.0) L 11/22/16 05:26 Hct 28.1 % (37.0-47.0) L 11/22/16 05:26 MCV 86.5 fL (81.0-99.0) 11/22/16 05:26 MCH 27.8 pg (27.0-31.0) 11/22/16 05:26 MCHC 32.2 g/dL (32.0-36.0) 11/22/16 05:26 RDW 17.5 % (12.0-15.0) H 11/22/16 05:26 Plt Count 240 10^3/uL (130-450) 11/22/16 05:26 MPV 8.1 fL (7.9-10.8) 11/22/16 05:26 Neut # 3.0 10^3/uL (1.5-6.6) 11/22/16 05:26 Lymph # 0.5 10^3/uL (1.5-3.5) L 11/22/16 05:26 [place] # 0.1 10^3/uL (0.0-1.0) 11/22/16 05:26 Eos # 0.1 10^3/uL (0.0-0.7) 11/22/16 05:26 Baso # 0.0 10^3/uL (0.0-0.1) 11/22/16 05:26 Absolute Nucleated RBC 0.01 x10^3/uL 11/22/16 05:26 Nucleated RBCs 0.2 /100WBC 11/22/16 05:26 PT 28.3 secs (9.9-12.6) H 11/26/16 06:53 INR 2.5 (0.8-1.2) H 11/26/16 06:53 APTT 37.2 secs (24.9-33.3) H 11/19/16 06:25 Sodium 136 mmol/L (135-145) 11/27/16 04:56 Potassium 4.0 mmol/L (3.5-5.0) 11/27/16 04:56 Chloride 103 mmol/L (101-111) 11/27/16 04:56 Carbon Dioxide 28 mmol/L (21-32) 11/27/16 04:56 Anion Gap 5.0 (6-13) L 11/27/16 04:56 BUN 22 mg/dL (6-20) H 11/27/16 04:56 Creatinine 1.1 mg/dL (0.4-1.0) H 11/27/16 04:56 Estimated GFR (MDRD) 47 (>89) L 11/27/16 04:56 Glucose 97 mg/dL (70-100) 11/27/16 04:56 Lactic Acid 1.2 mmol/L (0.5-2.2) 11/18/16 14:37 Calcium 9.1 mg/dL (8.5-10.3) 11/27/16 04:56 Magnesium 2.2 mg/dL (1.7-2.8) 11/22/16 05:26 Total Bilirubin 0.6 mg/dL (0.2-1.0) 11/18/16 10:10 AST 21 IU/L (10-42) 11/18/16 10:10 ALT 16 IU/L (10-60) 11/18/16 10:10 Alkaline Phosphatase 47 IU/L (42-121) 11/18/16 10:10 Total Protein 6.5 g/dL (6.7-8.2) L 11/18/16 10:10 Albumin 3.2 g/dL (3.2-5.5) 11/18/16 10:10 Globulin 3.3 g/dL (2.1-4.2) 11/18/16 10:10 Albumin/Globulin Ratio 1.0 (1.0-2.2) 11/18/16 10:10 Lipase 27 U/L (22-51) 11/18/16 10:10 Urine Color YELLOW 11/18/16 11:00 Urine Clarity CLOUDY (CLEAR) 11/18/16 11:00 Urine pH 5.5 PH (5.0-7.5) 11/18/16 11:00 Ur Specific [place] 1.025 (1.002-1.030) 11/18/16 11:00 Urine Protein TRACE mg/dL (NEGATIVE) 11/18/16 11:00 Urine Glucose (UA) NEGATIVE mg/dL (NEGATIVE) 11/18/16 11:00 Urine Ketones NEGATIVE mg/dL (NEGATIVE) 11/18/16 11:00 Urine Occult Blood TRACE-LYSE (NEGATIVE) 11/18/16 11:00 Urine Nitrite NEGATIVE (NEGATIVE) 11/18/16 11:00 Urine Bilirubin NEGATIVE (NEGATIVE) 11/18/16 11:00 Urine Urobilinogen 0.2 (NORMAL) E.U./dL (NORMAL) 11/18/16 11:00 Ur Leukocyte Esterase MODERATE (NEGATIVE) H 11/18/16 11:00 Ur Microscopic Review NOT INDICATED 11/18/16 11:00 Urine Culture Comments NOT INDICATED 11/18/16 11:00 Blood Type A POSITIVE 11/18/16 19:32 Antibody Screen NEGATIVE 11/18/16 19:32 Crossmatch IS Only See Detail 11/18/16 19:32
[2016-11-27] MEDS: WARFARIN 2.5 MG TABLET PO SCH (12:41)
[2016-11-27 15:45] VITALS: BP 129/66
--- NOTE | 2016-11-28 10:45 | DISCHARGE SUMMARY ---
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 HOSPITAL COURSE: This is an 89-year-old female who presented to the emergency department on 11/18 complaining of abdominal pain and nausea. CT scan of the abdomen was performed, which demonstrated a colonic intussusception, which appeared to be occurring at the hepatic flexure. The patient was on Coumadin for atrial fibrillation and she was admitted to the hospital under the surgical service and taken to surgery the following day after receiving 2 units of FFP for reversal of the INR. Her procedure went uneventfully and a laparoscopic right hemicolectomy was performed. The patient was transferred to the floor postoperatively with a Hope catheter and NG tube in place. She remained hemodynamically stable; however, slightly hypotensive during the initial postoperative period. For this reason her medications for atrial fibrillation and her Lasix were held. Eventually, her blood pressure improved, as well as her urine output. Her Hope catheter was removed; however, she remained in urinary retention, and subsequently the Hope catheter was replaced. Once bowel function was reestablished, the NG tube was removed, and she was started on a diet. This was advanced as tolerated and she was having regular bowel movements by the time of discharge. She failed a second attempt at removal of the Hope catheter and was started on Flomax. Additionally, she became slightly dyspneic over the weekend and a hospitalist consult was obtained, and Xopenex inhalers were started. The patient was stable for discharge on postoperative day #7 to a alf facility. Discharge instructions were provided for the patient as far as care for her wound and activity restrictions. She was provided with a list of appropriate medications to take while in the alf. All of her home medications including her Coumadin, Lasix, and carvedilol were restarted prior to discharge. Additional medications including the Xopenex inhaler,l Percocet and Senokot stool softener were added to her home medication list. She was discharged to [facility] with her Hope catheter in place with instructions to remove the catheter in 1 week. She will follow up with her primary care physician, Dr. Mcarthur, in 1 week. Additionally, her INR will be monitored as an outpatient. She will follow up with me in my office in 2 weeks. PHYSICAL EXAMINATION ON DISCHARGE VITAL SIGNS: Temperature 36.4, blood pressure 129/66, heart rate 69, respiratory rate 18, O2 saturations is 99% on room air. GENERAL: She is awake, alert, oriented x3, in no acute distress. She is of average build. CARDIOVASCULAR: Irregular rate and irregular rhythm. CHEST: Clear to auscultation bilaterally with diminished bases bilaterally. ABDOMEN: Soft, slightly distended, nontender to palpation with well-healing incisions. EXTREMITIES: Slightly edematous, +1 pitting edema. CONDITION ON DISCHARGE: Good. JOB #: [id number] EXT JOB #:[id number] [facility]
[2016-11-29] MEDS ORDERED: WARFARIN 5 MG TABLET PO SCH (12:25)
== END 2016-11-27 16:00 | DRG 331 ==
LOC: ED 09:16 → MS2 18:26
PROVIDERS: ADMIT Surgery; ATTEND Surgery
PROC: 30233K1 Transfusion of Nonautologous Frozen Plasma into Peripheral Vein, Percutaneous Approach (ICD-10-PCS; 2016-11-19)
PROC: 0DTF4ZZ Resection of Right Large Intestine, Percutaneous Endoscopic Approach (ICD-10-PCS; principal; 2016-11-19 09:30)
PROC: 0DJD8ZZ Inspection of Lower Intestinal Tract, Via Natural or Artificial Opening Endoscopic (ICD-10-PCS; 2016-11-19 09:30)
DX: R11.0 Nausea (principal); K56.1 Intussusception; D12.2 Benign neoplasm of ascending colon; R06.00 Dyspnea, unspecified; I48.91 Unspecified atrial fibrillation; J45.909 Unspecified asthma, uncomplicated; N99.89 Other postprocedural complications and disorders of genitourinary system; R33.8 Other retention of urine; I95.9 Hypotension, unspecified; M79.89 Other specified soft tissue disorders; I12.9 Hypertensive chronic kidney disease with stage 1 through stage 4 chronic kidney disease, or unspecified chronic kidney disease; N18.9 Chronic kidney disease, unspecified; K59.09 Other constipation; H35.30 Unspecified macular degeneration; Z79.01 Long term (current) use of anticoagulants; Z79.899 Other long term (current) drug therapy; Z85.828 Personal history of other malignant neoplasm of skin
CPT/HCPCS: 36415; 51701; 71010; 71020; 74000; 74176; 80048; 80053; 81001; 81003; 83605; 83690; 83735; 85025; 85610; 85730; 86850; 86900; 86901; 86920; 87086; 88309; 93005; 94640; 96360; 96361; 99284; 99285

== ENCOUNTER 2016-12-06 20:10 | Outpatient (CLI) | payer MEDICARE, OTHER ==
[2016-12-06 23:15] LABS: BILIRUBIN,URINE NEGATIVE (NEGATIVE)
[2016-12-06 23:18] LABS: UA w/ MICROSCOPIC CHARGE YES
[2016-12-06 23:22] LABS: UR CULTURE IF IND INDICATED; WBC,URINE >25 /HPF (0-5)
== END 2016-12-06 20:11 | disposition home or self-care (01) ==
LOC: LAB.R 20:10
DX: N39.0 Urinary tract infection, site not specified (principal)
CPT/HCPCS: 81001; 81003; 87086

== ENCOUNTER 2016-12-07 15:00 | Outpatient (CLI) | payer MEDICARE, OTHER ==
[2016-12-07 15:47] LABS: BASOPHILS % (AUTO) 0.7 %; EOSINOPHILS # (AUTO) 0.1 10^3/uL (0.0-0.7); EOSINOPHILS % (AUTO) 2.3 %; HCT - HEMATOCRIT 27.3 % (37.0-47.0); HGB - HEMOGLOBIN 9.1 g/dL (12.0-16.0); LYMPHOCYTES # (AUTO) 0.5 10^3/uL (1.5-3.5); LYMPHOCYTES % (AUTO) 8.8 %; MEAN CORPUSCULAR HEMOGLOBIN 28.4 pg (27.0-31.0); MEAN CORPUSCULAR HGB CONC 33.2 g/dL (32.0-36.0); MEAN CORPUSCULAR VOLUME 85.5 fL (81.0-99.0); MEAN PLATELET VOLUME 8.3 fL (7.9-10.8); MONOCYTES # (AUTO) 0.6 10^3/uL (0.0-1.0); MONOCYTES % (AUTO) 10.3 %; NEUTROPHILS # (AUTO) 4.4 10^3/uL (1.5-6.6); NEUTROPHILS % (AUTO) 77.9 %; RED BLOOD COUNT 3.19 10^6/uL (4.20-5.40); RED CELL DISTRIBUTION WIDTH 17.8 % (12.0-15.0); UNCORRECTED WHITE BLOOD COUNT 5.6 x10^3/uL; WHITE BLOOD COUNT 5.6 x10^3/uL (4.8-10.8)
[2016-12-07 15:53] LABS: CALCIUM 9.8 mg/dL (8.5-10.3); POTASSIUM 3.8 mmol/L (3.5-5.0)
== END 2016-12-07 15:01 ==
LOC: LAB.R 15:00
DX: I10 Essential (primary) hypertension (principal)
CPT/HCPCS: 80048; 85025

== ENCOUNTER 2016-12-19 19:40 | Outpatient (CLI) | payer MEDICARE, OTHER ==
[2016-12-19 23:06] LABS: CALCIUM 9.4 mg/dL (8.5-10.3); POTASSIUM 3.2 mmol/L (3.5-5.0)
== END 2016-12-19 19:41 ==
LOC: LAB.R 19:40
DX: Z48.3 Aftercare following surgery for neoplasm (principal)
CPT/HCPCS: 80048

== ENCOUNTER 2016-12-28 08:31 | Outpatient (CLI) | payer MEDICARE, OTHER | END 2016-12-28 08:32 | disposition home or self-care (01) | LOC: LAB 08:31 | PROVIDERS: ATTEND Internal Medicine | DX: I48.91 Unspecified atrial fibrillation (principal); Z79.01 Long term (current) use of anticoagulants | CPT/HCPCS: 85610 ==

== ENCOUNTER 2017-01-01 08:00 | Outpatient (CLI) | payer MEDICARE, OTHER | END 2017-01-01 08:01 | disposition home or self-care (01) | LOC: LAB.R 08:00 | PROVIDERS: ATTEND Surgery | DX: R19.7 Diarrhea, unspecified (principal) | CPT/HCPCS: 87493 ==

== ENCOUNTER 2017-01-11 10:19 | Outpatient (CLI) | payer MEDICARE, OTHER | END 2017-01-11 10:20 | disposition home or self-care (01) | LOC: LAB 10:19 | PROVIDERS: ATTEND Internal Medicine | DX: I48.91 Unspecified atrial fibrillation (principal); Z79.01 Long term (current) use of anticoagulants | CPT/HCPCS: 85610 ==

== ENCOUNTER 2017-02-08 10:31 | Outpatient (CLI) | payer MEDICARE, OTHER | END 2017-02-08 10:32 | disposition home or self-care (01) | LOC: LAB 10:31 | PROVIDERS: ATTEND Internal Medicine | DX: I48.91 Unspecified atrial fibrillation (principal); Z79.01 Long term (current) use of anticoagulants | CPT/HCPCS: 85610 ==

== ENCOUNTER 2017-03-07 10:07 | Outpatient (CLI) | payer MEDICARE, OTHER | END 2017-03-07 10:08 | disposition home or self-care (01) | LOC: LAB 10:07 | PROVIDERS: ATTEND Internal Medicine | DX: I48.91 Unspecified atrial fibrillation (principal); Z79.01 Long term (current) use of anticoagulants | CPT/HCPCS: 85610 ==

== ENCOUNTER 2017-03-19 13:38 | Outpatient (CLI) | payer MEDICARE, OTHER ==
[2017-03-19 15:39] LABS: CALCIUM 9.5 mg/dL (8.5-10.3); CREATININE 1.2 mg/dL (0.4-1.0); POTASSIUM 3.1 mmol/L (3.5-5.0)
== END 2017-03-19 13:39 | disposition home or self-care (01) ==
LOC: LAB.R 13:38
PROVIDERS: ATTEND Internal Medicine
DX: R60.9 Edema, unspecified (principal)
CPT/HCPCS: 80048

== ENCOUNTER 2017-04-04 12:12 | Outpatient (CLI) | payer MEDICARE, OTHER | END 2017-04-04 12:13 | disposition home or self-care (01) | LOC: LAB 12:12 | PROVIDERS: ATTEND Internal Medicine | DX: I48.91 Unspecified atrial fibrillation (principal); Z79.01 Long term (current) use of anticoagulants | CPT/HCPCS: 85610 ==

== ENCOUNTER 2017-04-05 09:44 | Outpatient (CLI) | payer MEDICARE, OTHER ==
[2017-04-05 15:27] LABS: CREATININE 1.2 mg/dL (0.4-1.0); POTASSIUM 4.4 mmol/L (3.5-5.0)
== END 2017-04-05 09:45 | disposition home or self-care (01) ==
LOC: LAB.R 09:44
PROVIDERS: ATTEND Internal Medicine
DX: R60.9 Edema, unspecified (principal)
CPT/HCPCS: 80048

== ENCOUNTER 2017-04-07 12:48 | Observation (INO) | payer MEDICARE, OTHER ==
--- NOTE | 2017-04-07 13:29 | ED Physician Documentation ---
PD HPI DYSPNEA - Stated complaint Stated Complaint: SOA - Chief complaint Chief Complaint: Resp - History obtained from History obtained from: Patient - History of Present Illness Timing - onset: How many weeks ago (1) Timing - onset during: Light activity (increasingly worse to where walking to [place] and tying her shoes got her dyspneic today.), Exertion Timing - duration: Weeks (1) Timing - details: Gradual onset Inciting event(s): No: URI, Immobilization/travel Worsened by: Exertion, Laying flat Associated symptoms: Bilateral edema. No: Fever, Cough, Wheezing, Chest pain / discomfort, Palpitations Similar symptoms before: Diagnosis (atrial fib, CHF) Recently seen: Clinic (Dr. Mcarthur 2 days ago in office with blood tests done; no change in meds at that time. Has gotten more dyspneic since that visit.) Review of Systems Constitutional: denies: Fever, Chills Nose: denies: Rhinorrhea / runny nose, Congestion Throat: denies: Sore throat Cardiac: reports: Pedal edema. denies: Chest pain / pressure, Palpitations, Calf pain Respiratory: reports: Dyspnea. denies: Cough, Wheezing GI: denies: Abdominal Pain, Nausea, Vomiting, Diarrhea Skin: denies: Rash, Lesions PD PAST MEDICAL HISTORY - Past Medical History Cardiovascular: Hypertension, Atrial fibrillation Respiratory: Asthma Neuro: None Endocrine/Autoimmune: None GI: Chronic constipation : None HEENT: Macular degeneration Psych: None Musculoskeletal: None Derm: None - Past Surgical History Ortho: Spine surgery HEENT: Cataracts, Tonsil/Adenoidectomy Derm: Skin cancer surgery, Other - Present Medications Home Medications: Ambulatory Orders Medication Instructions Recorded Confirmed Furosemide [Lasix] 10 mg PO DAILY 10/15/14 04/07/17 Ascorbic Acid [Vitamin C] 500 mg PO DAILY 11/20/16 04/07/17 Potassium Chloride [Micro-K] 10 meq PO BID 11/20/16 04/07/17 Warfarin [Coumadin] 5 mg PO MOFR@1400 11/20/16 04/07/17 Calcium Carbonate [Tums (Calcium 750 mg PO BID tablet 11/27/16 04/07/17 Carbonate 500mg)] Carvedilol [Coreg] 12.5 mg PO BID tablet 11/27/16 04/07/17 Levalbuterol [Xopenex] 1.25 mg INH Q4H PRN #0 neb 11/27/16 04/07/17 Fluticasone 110 Mcg [Flovent] 1 puffs INH BID 04/07/17 04/07/17 Warfarin [Coumadin] 2.5 mg PO SUTUWETHSA@1400 04/07/17 04/07/17 - Allergies Allergies/Adverse Reactions: Allergies Allergy/AdvReac Type Severity Reaction Status Date / Time albuterol Allergy Unknown Verified 12/09/13 10:30 verapamil [Verapamil] Allergy Rash Verified 12/09/13 10:30 codeine AdvReac Dizziness Verified 12/09/13 10:30 digoxin AdvReac Dizziness Verified 12/09/13 10:30 diltiazem AdvReac Dizziness Verified 12/09/13 10:30 metoprolol AdvReac Dizziness Verified 12/09/13 10:30 oxycodone [Oxycodone] AdvReac Nausea Verified 12/09/13 10:30 - Living Situation Living Situation: reports: Alone Living Arrangement: reports: At home - Social History Does the pt smoke?: No Smoking Status: Never smoker - Family History Family history: reports: Non contributory PD ED PE NORMAL - Vitals Vital signs reviewed: Yes - General General: Alert and oriented X 3, No acute distress, Well developed/nourished - HEENT HEENT: Moist mucous membranes, Pharynx benign - Neck Neck: Supple, no meningeal sign, No adenopathy, No bruit, Other (JVD noted at 45 degrees HOB. ) - Cardiac Cardiac: No: RRR (irregular and rate 110-115, c/w atrial fib) - Respiratory Respiratory: No respiratory distress. No: Clear bilaterally (fine crackles at bases both sides. No coarse sounds. ) - Abdomen Abdomen: Normal bowel sounds, Soft, Non tender, No organomegaly - Female Female : Deferred - Rectal Rectal: Deferred - Back Back: No CVA TTP - Derm Derm: Normal color, Warm and dry - Extremities Extremities: No tenderness to palpate, Normal ROM s pain, No calf tenderness / cord, Other (1-2+ edema in both lower legs and ankles. ) - Neuro Neuro: Alert and oriented X 3, No motor deficit, Normal speech - Psych Psych: Normal mood, Normal affect Results - Vitals Vitals: Vital Signs - 24 hr 04/07/17 04/07/1704/07/17 12:56 13:05 13:13 Temperature 36.3 C L Heart Rate 106 H 93 Respiratory 18 18 Rate Blood Pressure 180/110 H O2 Saturation 97 97 100 04/07/17 15:23 Temperature Heart Rate 113 H Respiratory 18 Rate Blood Pressure 160/101 H O2 Saturation 98 Oxygen O2 Source Room air Oxygen Flow Rate 2 - EKG (time done) 13:04 Rate: Rate (enter#) (111) Rhythm: Atrial fibrillation QRS: Normal Ischemia: Normal ST segments, Non specific changes. No: ST elevation c/w ischemia, ST depression Compare to prior EKG: Unchanged from prior EKG - Labs Labs: Laboratory Tests 04/07/17 04/07/17 04/07/17 13:58 13:58 13:58 WBC 4.9 RBC 3.78 L Hgb 11.6 L Hct 35.3 L MCV 93.3 MCH 30.5 MCHC 32.7 RDW 16.4 H Plt Count 191 MPV 8.6 Neut # 3.7 Lymph # 0.6 L [place] # 0.4 Eos # 0.1 Baso # 0.0 Absolute Nucleated RBC 0.00 Nucleated RBC % 0.1 PT INR Sodium 141 Potassium 4.1 Chloride 104 Carbon Dioxide 27 Anion Gap 10.0 BUN 31 H Creatinine 0.9 Estimated GFR (MDRD) 59 L Glucose 98 Calcium 10.0 Magnesium 2.1 Total Bilirubin 0.6 AST 34 ALT 29 Alkaline Phosphatase 58 Troponin I < 0.04 B-Natriuretic Peptide Total Protein 6.9 Albumin 3.6 Globulin 3.3 Albumin/Globulin Ratio 1.1 Lipase 31 04/07/17 04/07/17 13:58 13:58 WBC RBC Hgb Hct MCV MCH MCHC RDW Plt Count MPV Neut # Lymph # [place] # Eos # Baso # Absolute Nucleated RBC Nucleated RBC % PT 38.6 H INR 3.6 H Sodium Potassium Chloride Carbon Dioxide Anion Gap BUN Creatinine Estimated GFR (MDRD) Glucose Calcium Magnesium Total Bilirubin AST ALT Alkaline Phosphatase Troponin I B-Natriuretic Peptide 448 H Total Protein Albumin Globulin Albumin/Globulin Ratio Lipase - Rads (name of study) chest Radiology: Prelim report reviewed, EMP read contemporaneously (lower filed interstitial changes c/w CHF. ) PD MEDICAL DECISION MAKING - ED course Complexity details: reviewed results, re-evaluated patient (her vitals are not bad (good sats but is tachycardic and initial hypertensive), but has marked KUMARI to where she is not able to walk around the house and got short of breath tying her shoes this morning. I think she needs more diuresis before being able to be released to self-care at home. She is improving some with IV diuretic and oral nitrate in ED. ), considered differential, d/w patient, d/w child welfare consultant Departure - Departure Disposition: ED Place in Observation Clinical Impression: Dyspnea Qualifiers: Dyspnea type: dyspnea on exertion Qualified Code(s): R06.09 - Other forms of dyspnea Congestive heart failure Qualifiers: Congestive heart failure type: unspecified congestive heart failure type Congestive heart failure chronicity: acute on chronic Qualified Code(s): I50.9 - Heart failure, unspecified Condition: Stable Discharge Date/Time: 04/07/17 17:07
[2017-04-07] MEDS ORDERED: FUROSEMIDE 40 MG/4 ML VIAL IVP STA (13:48)
[2017-04-07 14:11] LABS: BASOPHILS % (AUTO) 0.3 %; EOSINOPHILS # (AUTO) 0.1 10^3/uL (0.0-0.7); EOSINOPHILS % (AUTO) 2.7 %; HCT - HEMATOCRIT 35.3 % (37.0-47.0); HGB - HEMOGLOBIN 11.6 g/dL (12.0-16.0); LYMPHOCYTES # (AUTO) 0.6 10^3/uL (1.5-3.5); MEAN CORPUSCULAR HEMOGLOBIN 30.5 pg (27.0-31.0); MEAN CORPUSCULAR HGB CONC 32.7 g/dL (32.0-36.0); MEAN CORPUSCULAR VOLUME 93.3 fL (81.0-99.0); MEAN PLATELET VOLUME 8.6 fL (7.9-10.8); MONOCYTES # (AUTO) 0.4 10^3/uL (0.0-1.0); MONOCYTES % (AUTO) 8.3 %; NEUTROPHILS # (AUTO) 3.7 10^3/uL (1.5-6.6); NEUTROPHILS % (AUTO) 75.7 %; NUCLEATED RED BLOOD CELLS AUTO 0.1 /100WBC; RED BLOOD COUNT 3.78 10^6/uL (4.20-5.40); RED CELL DISTRIBUTION WIDTH 16.4 % (12.0-15.0); UNCORRECTED WHITE BLOOD COUNT 4.9 x10^3/uL; WHITE BLOOD COUNT 4.9 x10^3/uL (4.8-10.8)
[2017-04-07 14:15] LABS: INR 3.6 (0.8-1.2); PT - PROTHROMBIN TIME 38.6 secs (9.9-12.6)
[2017-04-07 14:23] LABS: ALBUMIN/GLOBULIN RATIO 1.1 (1.0-2.2); BILIRUBIN,TOTAL 0.6 mg/dL (0.2-1.0); CREATININE 0.9 mg/dL (0.4-1.0); MAGNESIUM 2.1 mg/dL (1.7-2.8); POTASSIUM 4.1 mmol/L (3.5-5.0); TOTAL PROTEIN 6.9 g/dL (6.7-8.2)
--- NOTE | 2017-04-07 14:45 | XRAY Preliminary Report ---
Exam: XR CHEST 2 VIEW PA/LAT IMPRESSION: Slightly improved small bilateral pleural effusions since 11/26/2016. Mild bilateral lowe r lobe airspace opacities, likely atelectasis. [facility] SITE ID: [id number]
--- NOTE | 2017-04-07 14:48 | XRAY Report ---
EXAM: CHEST RADIOGRAPHY EXAM DATE: 04/07/2017 02:08 PM. CLINICAL HISTORY: Dyspnea increasing for a week. COMPARISON: 11/26/2016, 11/25/2016, 11/20/2016, 05/14/2007. TECHNIQUE: 2 views. FINDINGS: Lungs/Pleura: Small bilateral pleural effusions, slightly improved. No pneumothorax. Stable moderate biapical pleural parenchymal scarring. Stable mild bilateral coarse interstitial opacities suggestive of trace fibrosis. Mild bilateral lower lobe airspace opacities. Mediastinum: Heart size upper limits of normal, stable. Mildly tortuous and ectatic aorta, stable Other: Osteopenia. IMPRESSION: Slightly improved small bilateral pleural effusions since 11/26/2016. Mild bilateral lowe r lobe airspace opacities, likely atelectasis. [facility] Referring Provider Line: [phone] SITE ID: [id number]
[2017-04-07] MEDS ORDERED: ONDANSETRON ODT 4 MG TABLET TL PRN (16:14)
[2017-04-07] MEDS ORDERED: TEMAZEPAM 15 MG CAPSULE PO PRN (16:14)
[2017-04-07] MEDS ORDERED: SODIUM CHLORIDE FLUSH 0.9% 10 ML SYRINGE IVP PRN (16:14)
[2017-04-07] MEDS ORDERED: ACETAMINOPHEN 325 MG TABLET PO PRN (16:14)
[2017-04-07] MEDS ORDERED: WARFARIN 2.5 MG TABLET PO SCH (17:00)
[2017-04-07] MEDS: FUROSEMIDE 40 MG/4 ML VIAL IVP SCH (18:56)
[2017-04-07] MEDS ORDERED: SODIUM CHLORIDE INHALATION 3 ML NEB INH PRN (19:00)
[2017-04-07] MEDS ORDERED: LEVALBUTEROL 1.25 MG/0.5 ML NEB INH PRN (19:00)
--- NOTE | 2017-04-07 19:41 | HISTORY & PHYSICAL EXAMINATION ---
Chief Complaint - Chief Complaint Chief Complaint: Shortness of breath Chest Pain Admission HPI - Admitted From Admitted from: ED - History Obtained From Records Reviewed: RN notes reviewed, Old records reviewed History obtained from: Patient Exam limitations: No limitations - History of Present Illness Pain/Problem Location Description: Dyspnea Severity at the worst: reports: Moderate Context-Pain started w/: reports: Exertion, Movement, Position (more so if bending over to tie shoes or picking something off the floor.) Timing: reports: Gradual onset (Over the past week, but much worse yesterday and today.) Duration: reports: Unknown Improved with: reports: Rest, Nothing Worsened by: reports: Exertion, Movement, Nothing Associated symptoms: reports: Shortness of air, Feeling faint / dizzy, General Weakness HPI Comment/Other: Mae Carpio is a white 89-year old female with a past medical history of hypertension, CHF, post-Mandi [place], recent falls, asthma, chronic constipation, atrial fibrillation, status post hemicolectomy, macular degeneration, cataracts, and pre-cancerous skin lesions. She started to become short of breath about a week ago, but yesterday was more short of breath with increased dizziness. She also admits to 2 recent falls in which she did not loose consciousness, but rather lost her balance as she reached down to chicken picker something. Once in the ED she was found to have an elevated BNP of 433, increased respiratory rate, heart rate and blood pressure. She will be admitted to observation for telemetry monitoring, labs, diuresis with IV lasix, and likely medication adjustment. 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 negative: CVA, TIA, Parkinson's Endocrine/Autoimmune: positive: None. negative: Type 2 diabetes, HyPOthyroidism GI: positive: Chronic constipation : positive: Incontinence, Nocturia, Frequency HEENT: positive: Chronic vision loss, Macular degeneration, Other (cataracts) Psych: positive: None. negative: Depression Musculoskeletal: positive: None. negative: Fibromyalgia, Rheumatoid arthritis Derm: positive: Other (benign skin lesions) MRSA Hx?: No - Past Surgical History General: positive: Bowel surgery (hemicoloctomy) Ortho: positive: Spine surgery (Laminectomy in the .) HEENT: positive: Cataracts, Tonsil/Adenoidectomy Derm: positive: Skin cancer surgery, Other Social & Family Hx - Living Situation Living Arrangement: At home Living Situation: Alone - Social History Does the pt smoke?: No Smoking Status: Never smoker ETOH Use: Wine (one glass per month) Does the pt have substance abuse?: No - POLST Patient has POLST: Yes POLST Status: DNR - Family History Family History: Mother: , Cancer (Father-colon CA, mother lung CA), Father: , Cancer Family History Comment/Other: No siblings or other family history. Meds/Allgy - Home Medications Home Medications: Ambulatory Orders Medication Instructions Recorded Confirmed Furosemide [Lasix] 10 mg PO DAILY 10/15/14 04/07/17 Ascorbic Acid [Vitamin C] 500 mg PO DAILY 11/20/16 04/07/17 Potassium Chloride [Micro-K] 10 meq PO BID 11/20/16 04/07/17 Warfarin [Coumadin] 5 mg PO MOFR@1400 11/20/16 04/07/17 Calcium Carbonate [Tums (Calcium 750 mg PO BID tablet 11/27/16 04/07/17 Carbonate 500mg)] Carvedilol [Coreg] 12.5 mg PO BID tablet 11/27/16 04/07/17 Levalbuterol [Xopenex] 1.25 mg INH Q4H PRN #0 neb 11/27/16 04/07/17 Fluticasone 110 Mcg [Flovent] 1 puffs INH BID 04/07/17 04/07/17 Warfarin [Coumadin] 2.5 mg PO SUTUWETHSA@1400 04/07/17 04/07/17 - Allergies Allergies/Adverse Reactions: Allergies Allergy/AdvReac Type Severity Reaction Status Date / Time albuterol Allergy Unknown Verified 12/09/13 10:30 verapamil [Verapamil] Allergy Rash Verified 12/09/13 10:30 codeine AdvReac Dizziness Verified 12/09/13 10:30 digoxin AdvReac Dizziness Verified 12/09/13 10:30 diltiazem AdvReac Dizziness Verified 12/09/13 10:30 metoprolol AdvReac Dizziness Verified 12/09/13 10:30 oxycodone [Oxycodone] AdvReac Nausea Verified 12/09/13 10:30 Review of Systems - Constitutional Constitutional: reports: Fatigue, Weakness - Eyes Eyes: reports: Vision loss, Corrective lenses - Ears, Nose & Throat Ears, Nose & Throat: reports: Hearing loss - Cardiovascular Cariovascular: reports: Irregular heart rate, Edema, Lightheadedness, Syncope, Exertional dyspnea, Decr. exercise tolerance. denies: Palpitations, Chest pain , Orthopnea - Respiratory Respiratory: reports: SOB with exertion. denies: Cough, Sputum production, Wheezing, Orthopnea - Gastrointestinal Gastrointestinal: reports: Constipation - Genitourinary Genitourinary: reports: Frequency, Incontinence (mild), Nocturia - Musculoskeletal Musculoskeletal: denies: Gout - Integumentary Integumentary: reports: Lesions (stays current with PCP in getting skin lesions removed.), Dryness - Neurological Neurological: reports: General weakness, Headache, Dizziness - Psychiatric Psychiatric: denies: Depression, Anxiety, Suicidal - All Other Systems All Other Systems: reports: Reviewed and negative Exam - Vital Signs Reviewed Vital Signs: Yes Vital Signs: Vital Signs x48h Temp Pulse Pulse Resp BP BP Pulse Ox 04/07/17 18:00 36.3 C L 104 H 16 154/90 H 97 04/07/17 16:52 108 H 18 159/107 H 99 - Physical Exam General Appearance: positive: No acute distress, Alert Eyes Bilateral: positive: Normal inspection, PERRL ENT: positive: ENT inspection nml, Pharynx nml, Dry mucous membranes Neck: positive: Nml inspection, Thyroid nml, No JVD, Trachea midline Respiratory: positive: Chest non-tender, No respiratory distress, Other ( diminished, no crackles noted.) Cardiovascular: positive: Irregularly irregular, Tachycardia, Systolic murmur, Gallop/S3 Peripheral Pulses: positive: 1+ Abdomen: positive: Non-tender, No organomegaly, Nml bowel sounds, Other ( abdominal edema-patient cannot button her pants.) Back: positive: Nml inspection Skin: positive: Color nml, No rash, Warm, Dry, Pallor Extremities: positive: Non-tender, Full ROM, Pedal edema (+2 pitting.), Calf tenderness, Joint swelling Neurologic/Psychiatric: positive: Oriented x3, CN's nml (2-12), Motor nml, Sensation nml, Mood/affect nml Reflexes: Bicep (R): 2+, Bicep (L): 2+ Results - Lab Results Lab results reviewed: Yes Fish Bones: 04/07/17 13:58 04/07/17 13:58 - Diagnostic Imaging Results Diagnostic Imaging Results: positive: Prelim report reviewed, Final report reviewed Diagnostic Imaging Results Comments: Chest x-ray: FINDINGS: Lungs/Pleura: Small bilateral pleural effusions, slightly improved. No pneumothorax. Stable moderate biapical pleural parenchymal scarring. Stable mild bilateral coarse interstitial opacities suggestive of trace fibrosis. Mild bilateral lower lobe airspace opacities. Mediastinum: Heart size upper limits of normal, stable. Mildly tortuous and ectatic aorta, stable Other: Osteopenia. IMPRESSION: Slightly improved small bilateral pleural effusions since 2016. Mild bilateral lower lobe airspace opacities, likely atelectasis. - EKG Results EKG Interpreted Independently: Yes ARRA - Anticipated LOS Anticipated Stay Length: Less than 2 midnights - AMI - Statin at Admit Aspirin Prescribed on Admit: Yes - Stroke - Rehab Assessment Rehab services assessment to be ordered?: Yes - DVT/VTE - Prophylaxis VTE/DVT Device ordered at admit?: Yes VTE/DVT Prophylaxis med ordered at admit?: Yes CP/CHF Plan - Echo Plan to order an echo?: Yes - Plan Patient Problems: All Active Problems Chronic anticoagulation (Acute) Congestive heart failure (Acute) Dyspnea (Acute) History of asthma (Acute) Urinary retention (Chronic) Plan: Heart failure, unspecified (I50.9) Patient has a known history of CHF and has been doing well on her medications, until the time leading up to admission. Her last echocardiogram that was completed on 10/04/16 showed moderate RV enlargement, mild aortic stenosis, moderate mitral regurgitation and an RVSP at rest of 115mmHg. This concludes that she has right sided heart failure with preserved EF/pulmonary hypertension. Plan: Monitor labs, telemetry, and echocardiogram ordered, but unsure whether this can be completed due to holiday. May consider medication adjustment. intermediate (current) use of anticoagulants (Z79.01) Patient is on coumadin per her PCP clinic. INR was elevated today at 3.6. Plan: Hold coumadin and likely resume in 2 days. INR lab draw for AM. Dyspnea, unspecified (R06.00) Patient was noted to have an increased respiratory rate, but does not need oxygen. Plan: Monitor vital signs. Chronic atrial fibrillation (I48.2) Patient is noted to be in atrial fibrillation without RVR, but rates in the 100's. Plan: It appears that patient is allergic? to several rate control medications. This may cause a problem with limiting creativity in rate control choices. We will continue to monitor rhythm and rate on telemetry. Essential (primary) hypertension (I10) Patient continues to be hypertensive and tachycardic. Plan: One time dose of IV hydralazine, and resumed coreg home dose. Patient had lasix 40mg IV in ED and an additional 40mg IV at 1900. We will continue to monitor vital signs. DVT prophylaxis with SCDs and enoxaparin. Code status: FULL.
[2017-04-07] MEDS: BUDESONIDE 0.5 MG/2 ML NEB INH SCH (20:00)
[2017-04-07] MEDS: CALCIUM CARBONATE CHEW 500 MG TABLET PO SCH (21:25)
[2017-04-07] MEDS: SODIUM CHLORIDE FLUSH 0.9% 10 ML SYRINGE IVP SCH (21:26)
[2017-04-07] MEDS: CARVEDILOL 12.5 MG TABLET PO SCH (21:26)
[2017-04-07] MEDS ORDERED: hydrALAZINE INJ 20 MG/ML VIAL IVP ONE (21:40)
[2017-04-07] MEDS ORDERED: SODIUM CHLORIDE INHALATION 3 ML NEB INH SCH (22:00)
--- NOTE | 2017-04-08 00:16 | DISCHARGE SUMMARY ---
Discharge Summary Admit Date: 04/07/17 Discharge Date: 04/08/17 Discharging Provider: ANSON Lou Code Status: Do Not Attempt Resuscitation Condition at Discharge: Good Discharge Disposition: 01 Home, Self Care - DIAGNOSES Admission Diagnoses: Heart failure, unspecified (I50.9) retirement (current) use of anticoagulants (Z79.01) Dyspnea, unspecified (R06.00) Chronic atrial fibrillation (I48.2) Essential (primary) hypertension (I10) Discharge Diagnoses with Status of Each Condition: Acute exacerbation of CHF (I50.9) chronic, resolved acute phase. Hypertension (I10) stable, controlled with medications. Chronic a-fib (I48.2) chronic, controlled with medications. Dyspnea (R06.00) resolved. Chronic anticoagulation (Z79.01) ongoing, stable. - HPI History of Present Illness: Mae Carpio is a white 89-year old female with a past medical history of hypertension, CHF, post-Mandi [place], recent falls, asthma, chronic constipation, atrial fibrillation, status post hemicolectomy, macular degeneration, cataracts, and pre-cancerous skin lesions. She started to become short of breath about a week ago, but yesterday was more short of breath with increased dizziness. She also admits to 2 recent falls in which she did not loose consciousness, but rather lost her balance as she reached down to burr picker something. Once in the ED she was found to have an elevated BNP of 433, increased respiratory rate, heart rate and blood pressure. She will be admitted to observation for telemetry monitoring, labs, diuresis with IV lasix, and likely medication adjustment. - HOSPITAL COURSE Hospital Course: Mae was admitted for acute CHF exacerbation for observation. She was initially tachycardic, hypertensive and had mild electrolyte abnormalities. She was monitored on telemetry over night. Mae did not need supplemental oxygen during her stay. Preceding discharge home, her vital signs had normalized, electrolytes improved after being replaced, and medications were adjusted to maximize fluid balance in order to prevent further exacerbations. Unfortunately, our echocardiogram technichians were unavailable, as this would have been a beneficial way to diagnose a cause for the exacerbation. Patient was recommended to start cardiac rehab on an out patient basis and follow up with Dr. Mcarthur within one week. Mae had improved respiratory effort, looked clinically stable, and had improved edema. She was transported via private car home with new prescriptions and instructions in stable condition. - ALLERGIES Allergies/Adverse Reactions: Allergies Allergy/AdvReac Type Severity Reaction Status Date / Time albuterol Allergy Unknown Verified 12/09/13 10:30 verapamil [Verapamil] Allergy Rash Verified 12/09/13 10:30 codeine AdvReac Dizziness Verified 12/09/13 10:30 digoxin AdvReac Dizziness Verified 12/09/13 10:30 diltiazem AdvReac Dizziness Verified 12/09/13 10:30 metoprolol AdvReac Dizziness Verified 12/09/13 10:30 oxycodone [Oxycodone] AdvReac Nausea Verified 12/09/13 10:30 - MEDICATIONS Home Medications: Ambulatory Orders Medication Instructions Recorded Confirmed Ascorbic Acid [Vitamin C] 500 mg PO DAILY 11/20/16 04/07/17 Warfarin [Coumadin] 5 mg PO MOFR@1400 11/20/16 04/07/17 Calcium Carbonate [Tums (Calcium 750 mg PO BID tablet 11/27/16 04/07/17 Carbonate 500mg)] Carvedilol [Coreg] 12.5 mg PO BID tablet 11/27/16 04/07/17 Levalbuterol [Xopenex] 1.25 mg INH Q4H PRN #0 neb 11/27/16 04/07/17 Fluticasone 110 Mcg [Flovent] 1 puffs INH BID 04/07/17 04/07/17 Warfarin [Coumadin] 2.5 mg PO SUTUWETHSA@1400 04/07/17 04/07/17 Furosemide 20 mg PO DAILY #30 tablet 04/08/17 Spironolactone [Aldactone] 25 mg PO DAILY #30 tablet 04/08/17 - PHYSICAL EXAM AT DISCHARGE General Appearance: positive: No acute distress, Alert Eyes Bilateral: positive: Normal inspection, PERRL ENT: positive: ENT inspection nml, Pharynx nml, Dry mucous membranes Neck: positive: Nml inspection, Thyroid nml, No JVD, Trachea midline Respiratory: positive: Chest non-tender, No respiratory distress, Breath sounds nml, Wheezes, Rhonchi (crackles low lobes.) Cardiovascular: positive: No gallop, Irregularly irregular, Systolic murmur Peripheral Pulses: positive: 1+ Abdomen: positive: Non-tender, No organomegaly, Nml bowel sounds, Other (rounded , less distended.) Back: positive: Nml inspection Skin: positive: Color nml, No rash, Warm, Dry, Pallor Extremities: positive: Non-tender, Full ROM, Pedal edema (chronic edema) Neurologic/Psychiatric: positive: Oriented x3, CN's nml (2-12), Motor nml, Sensation nml, Mood/affect nml Reflexes: Bicep (R): 3+, Bicep (L): 3+ - LABS Result Diagrams: 04/08/17 04:51 04/08/17 05:42 - DIAGNOSTIC IMAGING Diagnostic Imaging Results: Final report reviewed Diagnostic Imaging Results Comments: Chest x-ray 2-view: FINDINGS: Lungs/Pleura: Small bilateral pleural effusions, slightly improved. No pneumothorax. Stable moderate biapical pleural parenchymal scarring. Stable mild bilateral coarse interstitial opacities suggestive of trace fibrosis. Mild bilateral lower lobe airspace opacities. Mediastinum: Heart size upper limits of normal, stable. Mildly tortuous and ectatic aorta, stable Other: Osteopenia. IMPRESSION: Slightly improved small bilateral pleural effusions since 2016. Mild bilateral lower lobe airspace opacities, likely atelectasis. - FOLLOW UP Follow Up: You were placed in observation for an acute congestive heart exacerbation. The diagnoses that were managed were: 1) Right sided heart failure with preserved ejection fraction. 2) Edema 3) Hypertension 4) Hypokalemia 5) Atrial fibrillation with tachycardia An echocardiogram from 10/04/16 showed that you have right sided heart failure based on the right ventricle being enlarged and the pulmonary artery pressure being quite high at 115mmHg (normal is around 25mmHg). It is difficult to conclude exactly what caused this exacerbation and a new echocardiogram would have been wonderful in order to evaluate your heart function as the culprit of this exacerbation. Managing fluid balance can be tricky, so this may be the other reason for fluid overload. Your heart rhythm and rate were monitored overnight which showed a bit of tachycardia that soon became more normalized. It showed that you stayed in atrial fibrillation and had no other arrhythmias. Your blood pressure was quite high during the first few hours of your stay, but an IV medication called Hydralazine was given which prevented other events of high blood pressure. You were given extra potassium due to your lab results showing low levels. This was caused by the large amounts of urine output from the IV lasix that was given. You are being sent home on both Lasix (at a higher dose to continue to eliminate fluid) with new Spironolactone (which is a milder water pill and helps retain potassium). Please have your doctor order an updated echocardiogram as an outpatient, since you had this recent exacerbation. This will document overall heart function, how the blood moves through your heart, and how your valves are functioning. Please consider cardiac rehabilitation for the near future. This will be a great resource for you. It may help you achieve the most optimal way of living with your heart condition AND it may allow you to meet new people who care about your health. Take all medications as prescribed. See Dr. Mcarthur within a week as a follow up to this hospital stay and have him check your electrolytes since you have stopped the potassium. - TIME SPENT Time Spent in Discharge (Minutes): 60
[2017-04-08 04:59] LABS: BASOPHILS % (AUTO) 0.8 %; EOSINOPHILS # (AUTO) 0.1 10^3/uL (0.0-0.7); EOSINOPHILS % (AUTO) 2.8 %; HGB - HEMOGLOBIN 10.8 g/dL (12.0-16.0); LYMPHOCYTES # (AUTO) 0.8 10^3/uL (1.5-3.5); MEAN CORPUSCULAR HEMOGLOBIN 30.2 pg (27.0-31.0); MEAN CORPUSCULAR HGB CONC 32.7 g/dL (32.0-36.0); MEAN CORPUSCULAR VOLUME 92.3 fL (81.0-99.0); MEAN PLATELET VOLUME 8.3 fL (7.9-10.8); MONOCYTES # (AUTO) 0.5 10^3/uL (0.0-1.0); MONOCYTES % (AUTO) 11.9 %; NEUTROPHILS # (AUTO) 2.9 10^3/uL (1.5-6.6); NEUTROPHILS % (AUTO) 66.5 %; RED BLOOD COUNT 3.57 10^6/uL (4.20-5.40); RED CELL DISTRIBUTION WIDTH 15.8 % (12.0-15.0); UNCORRECTED WHITE BLOOD COUNT 4.4 x10^3/uL; WHITE BLOOD COUNT 4.4 x10^3/uL (4.8-10.8)
[2017-04-08 05:04] LABS: INR 3.6 (0.8-1.2); PT - PROTHROMBIN TIME 39.1 secs (9.9-12.6)
[2017-04-08 05:17] LABS: ALBUMIN/GLOBULIN RATIO 1.1 (1.0-2.2); BILIRUBIN,TOTAL 0.9 mg/dL (0.2-1.0); BUN - BLOOD UREA NITROGEN 31 mg/dL (6-20); CALCIUM 9.6 mg/dL (8.5-10.3); CARBON DIOXIDE - CO2 30 mmol/L (21-32); CHLORIDE 100 mmol/L (101-111); CREATININE 1.1 mg/dL (0.4-1.0); GFR - MDRD 47 (>89); GLUCOSE 89 mg/dL (70-100); POTASSIUM 2.7 mmol/L (3.5-5.0); SODIUM 142 mmol/L (135-145); TOTAL PROTEIN 5.9 g/dL (6.7-8.2)
[2017-04-08 05:55] LABS: CALCIUM 9.6 mg/dL (8.5-10.3); CREATININE 1.1 mg/dL (0.4-1.0)
[2017-04-08] MEDS ORDERED: POTASSIUM CHLORIDE 20 MEQ TABLET PO ONE (06:19)
[2017-04-08] MEDS: FUROSEMIDE 40 MG/4 ML VIAL IVP SCH (06:26)
[2017-04-08] MEDS: SODIUM CHLORIDE FLUSH 0.9% 10 ML SYRINGE IVP SCH ×2 (06:26→14:01)
[2017-04-08] MEDS: BUDESONIDE 0.5 MG/2 ML NEB INH SCH (07:35)
[2017-04-08] MEDS: CALCIUM CARBONATE CHEW 500 MG TABLET PO SCH (08:10)
[2017-04-08] MEDS: CARVEDILOL 12.5 MG TABLET PO SCH (08:11)
[2017-04-08] MEDS ORDERED: ASCORBIC ACID CHEW 500 MG TABLET PO SCH (09:00)
[2017-04-08] MEDS ORDERED: POTASSIUM CHLORIDE 20 MEQ TABLET PO SCH ×2 (09:00→14:15)
[2017-04-08] MEDS ORDERED: FAMOTIDINE 20 MG TABLET PO SCH (09:00)
[2017-04-08] MEDS ORDERED: ENOXAPARIN 40 MG/0.4 ML SYRINGE SUBQ SCH (09:00)
[2017-04-08] MEDS ORDERED: POLYETHYLENE GLYCOL 3350 17 GM PACKET PO SCH (09:00)
[2017-04-08] MEDS ORDERED: SPIRONOLACTONE 25 MG TABLET PO SCH (10:00)
--- NOTE | 2017-04-08 13:01 | Discharge Plan ---
Discharge Plan Disposition: 01 Home, Self Care Condition: Good Prescriptions: Furosemide 20 mg PO DAILY #30 tablet Spironolactone [Aldactone] 25 mg PO DAILY #30 tablet Diet: Low Sodium Activity Restrictions: No Restrictions Shower Restrictions: No Driving Restrictions: No Weight Bearing: Full Weight Instruction Topics: Heart Failure, Asthma, Triggers Asthma, Shortness of Breath Control Stress, Stroke Prevent Live W Atrial Fib Additional Instructions or Follow Up instructions: You were placed in observation for an acute congestive heart failure exacerbation. The diagnoses that were managed were: 1) Right sided heart failure with preserved ejection fraction. 2) Edema 3) Hypertension 4) Hypokalemia 5) Atrial fibrillation with tachycardia An echocardiogram from 10/04/16 showed that you have right sided heart failure based on the right ventricle being enlarged and the pulmonary artery pressure being quite high at 115mmHg (normal is around 25mmHg). It is difficult to conclude exactly what caused this exacerbation and a new echocardiogram would have been wonderful in order to evaluate your heart function as the culprit of this exacerbation. Managing fluid balance can be tricky, so this may be the other reason for fluid overload. Your heart rhythm and rate were monitored overnight which showed a bit of tachycardia that soon became more normalized. It showed that you stayed in atrial fibrillation and had no other arrhythmias. Your blood pressure was quite high during the first few hours of your stay, but an IV medication called Hydralazine was given which prevented other events of high blood pressure. You were given extra potassium due to your lab results showing low levels. This was caused by the large amounts of urine output from the IV lasix that was given. You are being sent home on both Lasix (at a higher dose to continue to eliminate fluid) with new Spironolactone (which is a milder water pill and helps retain potassium). Please have your doctor order an updated echocardiogram as an outpatient, since you had this recent exacerbation. This will document overall heart function, how the blood moves through your heart, and how your valves are functioning. Please consider cardiac rehabilitation for the near future. This will be a great resource for you. It may help you achieve the most optimal way of living with your heart condition AND it may allow you to meet new people who care about your health. Take all medications as prescribed. See Dr. Mcarthur within a week as a follow up to this hospital stay and have him check your electrolytes since you have stopped the potassium. Livia Worthington! Follow-Up Care: [facility] - Cardiac No Smoking: If you smoke, Please STOP! Call for help. Follow-up with: Mor Mcarthur MD [Primary Care Provider] -
[2017-04-08 14:07] VITALS: BP 107/57
[2017-04-11] MEDS ORDERED: WARFARIN 5 MG TABLET PO SCH (16:29)
== END 2017-04-08 15:15 | disposition home or self-care (01) ==
LOC: ED 12:48 → OBS 16:14
PROVIDERS: ADMIT Nurse Practitioner; ATTEND Nurse Practitioner
DX: I11.0 Hypertensive heart disease with heart failure (principal); I50.33 Acute on chronic diastolic (congestive) heart failure; E87.6 Hypokalemia; T50.1X5A Adverse effect of loop [high-ceiling] diuretics, initial encounter; Y92.239 Unspecified place in hospital as the place of occurrence of the external cause; I48.2 Chronic atrial fibrillation; J45.909 Unspecified asthma, uncomplicated; H35.30 Unspecified macular degeneration; Z91.81 History of falling; Z79.01 Long term (current) use of anticoagulants; Z86.69 Personal history of other diseases of the nervous system and sense organs; Z90.49 Acquired absence of other specified parts of digestive tract
CPT/HCPCS: 36415; 71020; 80048; 80053; 83690; 83735; 83880; 84443; 84484; 85025; 85610; 85651; 86140; 93005; 94640; 94664; 96374; 96375; 96376; 99284; A9270; G0378; J7626

== ENCOUNTER 2017-04-23 13:10 | Emergency (ER) | payer MEDICARE, OTHER ==
--- NOTE | 2017-04-23 14:11 | ED Physician Documentation ---
PD HPI SKIN - Stated complaint Stated Complaint: HEMATOMA TO BUTTOCK - Chief complaint Chief Complaint: General - History obtained from History obtained from: Patient - History of Present Illness Timing - onset: How many weeks ago (2) Timing - duration: Weeks (fell on Ander aquilino with hematoma to right gluteal which was slowly decreasing and then with the last 2-3 days of redness, increased swelling, and tenderness. Concern for infection. Went to PCP today and was referred to ED for labs/ IV meds/ surgical consultation for abx/IV treatment and presumed I&D surgically.) Timing - details: Gradual onset Location: Other (right gluteal/buttock.) Quality / character: Painful, Discolored (red), Swelling. No: Draining Associated symptoms: No: Fever, Myalgias, Abd pain, N/V/D Contributing factors: No: Recent illness Similar symptoms before: Has not had sx before Recently seen: Clinic (went to PCP today and referred to ED for further evaluation. Surgery Dr. Franco had been consulted by PCP.) Review of Systems Constitutional: denies: Fever, Chills, Myalgias Cardiac: denies: Chest pain / pressure Respiratory: denies: Dyspnea GI: reports: Abdominal Swelling (she has had focal swelling left lower abd that is reducible c/w hernia (though did have last week an episode of it being hard and tender and only got better after she more forcefully pushed on it).). denies: Constipation, Diarrhea : denies: Dysuria, Frequency, Incontinent Skin: reports: Lesions Neurologic: denies: Focal weakness, Numbness PD PAST MEDICAL HISTORY - Past Medical History Cardiovascular: Hypertension, Atrial fibrillation Respiratory: Asthma Neuro: None Endocrine/Autoimmune: None GI: Chronic constipation : None HEENT: Macular degeneration Psych: None Musculoskeletal: None Derm: None - Past Surgical History General: Bowel surgery (hemicoloctomy) Ortho: Spine surgery HEENT: Cataracts, Tonsil/Adenoidectomy Derm: Skin cancer surgery, Other - Present Medications Home Medications: Ambulatory Orders Medication Instructions Recorded Confirmed Ascorbic Acid [Vitamin C] 500 mg PO DAILY 11/20/16 04/23/17 Warfarin [Coumadin] 5 mg PO MOFR@1400 11/20/16 04/23/17 Calcium Carbonate [Tums (Calcium 750 mg PO BID tablet 11/27/16 04/23/17 Carbonate 500mg)] Carvedilol [Coreg] 12.5 mg PO BID tablet 11/27/16 04/23/17 Fluticasone 110 Mcg [Flovent] 1 puffs INH BID 04/07/17 04/23/17 Warfarin [Coumadin] 2.5 mg PO SUTUWETHSA@1400 04/07/17 04/23/17 Furosemide 20 mg PO DAILY #30 tablet 04/08/17 04/23/17 Spironolactone [Aldactone] 25 mg PO DAILY #30 tablet 04/08/17 04/23/17 HYDROcod/ACETAM 5/325 [[place] 5/325] 1 tab PO Q6H PRN #15 tablet 04/23/17 Sulfamethox/Trimeth 800/160 1 each PO BID #14 tablet 04/23/17 [Bactrim Ds 800/160] - Allergies Allergies/Adverse Reactions: Allergies Allergy/AdvReac Type Severity Reaction Status Date / Time albuterol Allergy Unknown Verified 04/23/17 14:03 verapamil [Verapamil] Allergy Rash Verified 04/23/17 14:03 codeine AdvReac Dizziness Verified 04/23/17 14:03 digoxin AdvReac Dizziness Verified 04/23/17 14:03 diltiazem AdvReac Dizziness Verified 04/23/17 14:03 metoprolol AdvReac Dizziness Verified 04/23/17 14:03 oxycodone [Oxycodone] AdvReac Nausea Verified 04/23/17 14:03 - Social History Does the pt smoke?: No Smoking Status: Never smoker Does the pt have substance abuse?: No - POLST Patient has POLST: Yes POLST Status: DNR PD ED PE NORMAL - Vitals Vital signs reviewed: Yes - General General: Alert and oriented X 3, No acute distress (sitting tilted to reduce pressure on right gluteal area. ), Well developed/nourished - Neck Neck: Supple, no meningeal sign, No adenopathy - Cardiac Cardiac: No murmur. No: RRR (irregular and slightly fast c/w atrial fib. ) - Respiratory Respiratory: Clear bilaterally - Abdomen Abdomen: Normal bowel sounds, Soft, Non tender, Non distended, Other (noted in soft, reducible left lower abd incisional hernia that is focallly round and is easily reduced, though comes right back out after pressure released.) - Female Female : Deferred - Rectal Rectal: Deferred, Other (right gluteal area with firm tenderness, some bruising color old, and bright redness with warmth and tenderness c/w infection. No drainage. ) - Back Back: No CVA TTP - Derm Derm: Normal color, Warm and dry Results - Vitals Vitals: Vital Signs - 24 hr 04/23/17 04/23/17 13:56 18:00 Temperature 36.8 C 37.0 C Heart Rate 115 H 86 Respiratory 18 19 Rate Blood Pressure 154/88 H 155/91 H O2 Saturation 99 100 Oxygen O2 Source Room air - Labs Labs: Laboratory Tests 04/23/17 04/23/17 04/23/17 15:01 15:01 15:01 WBC 6.7 RBC 3.90 L Hgb 11.7 L Hct 35.4 L MCV 90.7 MCH 30.0 MCHC 33.1 RDW 15.5 H Plt Count 298 MPV 7.7 L Neut # 5.1 Lymph # 1.0 L [place] # 0.5 Eos # 0.1 Baso # 0.0 Absolute Nucleated RBC 0.00 Nucleated RBC % 0.0 PT 48.0 H INR 4.5 H* Sodium 137 Potassium 4.1 Chloride 95 L Carbon Dioxide 28 Anion Gap 14.0 H BUN 27 H Creatinine 1.1 H Estimated GFR (MDRD) 47 L Glucose 94 Calcium 10.2 Magnesium 2.0 Total Bilirubin 0.6 AST 28 ALT 20 Alkaline Phosphatase 67 Total Protein 7.4 Albumin 3.7 Globulin 3.7 Albumin/Globulin Ratio 1.0 Lipase 36 - Rads (name of study) soft tissue U/S Radiology: Prelim report reviewed (localized hypoechoic area at site of redness/ tender. Subcutaneous fatty layer location, not deep to muscle. ) PD MEDICAL DECISION MAKING - ED course Complexity details: reviewed results (has fluid collection under area of redness and tenderness. WBC is normal and temp normal. ), considered differential (IV started and IV abx given, labs drawn with presumed I&D pending. Contacted Dr. Franco that patient had arrived. ), d/w patient, d/w [facility] (Dr. Franco, who came to ED and examined patient. I updated her with labs and U/S report. She felt it was more skin level infection and not abscessed hematoma. Was not admitting and to treat outpatient oral abx and recheck with her in a week (though I suggested to patient to be rechecked in 2- 3 days). ) Departure - Departure Disposition: 01 Home, Self Care Clinical Impression: Traumatic hematoma of lower leg with infection Qualifiers: Encounter type: initial encounter Laterality: right Qualified Code(s): S80.11XA - Contusion of right lower leg, initial encounter Condition: Stable Record reviewed to determine appropriate education?: Yes Instructions: ED Infec Skin Cellulitis, ED Hematoma Follow-Up: SEGUN FRANCO MD [Provider Admit Priv/Credential] - Amparo Zavala PA-C [Provider Admit Priv/Credential] - Prescriptions: HYDROcod/ACETAM 5/325 [[place] 5/325] 1 tab PO Q6H PRN #15 tablet PRN Reason: Pain Sulfamethox/Trimeth 800/160 [Bactrim Ds 800/160] 1 each PO BID #14 tablet Comments: Warm soaks or moist towels to the infection area a few times a day. It might start draining on its own as it almost looks like it is coming to point. Dr. Franco thinks the infection is of the skin and not really of the hematoma so we are treating it with oral antibiotics and seeing if it gets better. Additionally your Coumadin level is high and so that makes it slightly risky for draining it currently anyway. However the infection should show some reasonable improvement over the next 2-3 days. I would recheck either with Dr. Franco or Dr. Mcarthur's office in 2-3 days at the latest. Call Dr. Franco's office for follow-up anyway regarding the abdominal hernia which currently is secondary issue to the infection. Tylenol if needed for pain. Add hydrocodone if needed. Hold your Coumadin for the next several days until this resolves. Continue your other medications. Discharge Date/Time: 04/23/17 18:36
[2017-04-23] MEDS ORDERED: cefTRIAXone 1 GM in SODIUM CHLORIDE 0.9% MINIBAG 100 ML IV STA (14:32)
[2017-04-23 15:07] LABS: BASOPHILS % (AUTO) 0.5 %; EOSINOPHILS # (AUTO) 0.1 10^3/uL (0.0-0.7); EOSINOPHILS % (AUTO) 1.3 %; HGB - HEMOGLOBIN 11.7 g/dL (12.0-16.0); LYMPHOCYTES % (AUTO) 14.4 %; MEAN CORPUSCULAR HGB CONC 33.1 g/dL (32.0-36.0); MEAN CORPUSCULAR VOLUME 90.7 fL (81.0-99.0); MEAN PLATELET VOLUME 7.7 fL (7.9-10.8); MONOCYTES # (AUTO) 0.5 10^3/uL (0.0-1.0); MONOCYTES % (AUTO) 7.4 %; NEUTROPHILS # (AUTO) 5.1 10^3/uL (1.5-6.6); NEUTROPHILS % (AUTO) 76.4 %; PLT - PLATELET COUNT 298 10^3/uL (130-450); RED CELL DISTRIBUTION WIDTH 15.5 % (12.0-15.0); WHITE BLOOD COUNT 6.7 x10^3/uL (4.8-10.8)
[2017-04-23 15:20] LABS: ALBUMIN 3.7 g/dL (3.2-5.5); BILIRUBIN,TOTAL 0.6 mg/dL (0.2-1.0); CALCIUM 10.2 mg/dL (8.5-10.3); CREATININE 1.1 mg/dL (0.4-1.0); TOTAL PROTEIN 7.4 g/dL (6.7-8.2)
[2017-04-23] MEDS ORDERED: VANCOMYCIN INJ 1 GM in SODIUM CHLORIDE 0.9% 250 ML IV STA (15:23)
[2017-04-23 15:53] LABS: INR 4.5 (0.8-1.2)
--- NOTE | 2017-04-23 16:57 | Ultrasound Report ---
EXAM: RIGHT LOWER EXTREMITY ULTRASOUND - LIMITED EXAM DATE: 04/23/2017 04:30 PM. CLINICAL HISTORY: Gluteal abscess. COMPARISON: None. TECHNIQUE: Real-time scanning was performed with static images obtained. FINDINGS: There is a complex avascular collection in the deep subcutaneous fat corresponding to the a shaq of concern in the right buttock 4.7 x 3.6 x 4.3 cm compatible with abscess, with overlying echoge samantha fat compatible with cellulitis. IMPRESSION: Right buttock abscess in the deep subcutaneous fat 4.7 x 3.6 x 4.3 cm. [facility] Referring Provider Line: [phone] SITE ID: [id number]
[2017-04-23 18:00] VITALS: BP 155/91
[2017-04-23] MEDS ORDERED: PHYTONADIONE 10 MG/ML AMP PO STA (18:23)
--- NOTE | 2017-04-25 09:50 | CONSULTATION NOTE ---
Referring Provider Name of Referring Provider:: Dr. Vides Consult Date: 04/23/17 Chief Complaint - Chief Complaint Chief Complaint: buttock hematoma History of Present Illness - History of Present Illness HPI Comment/Other: Mae is a pleasant 89-year-old female who was referred to the emergency department from her primary care physician's office, by Amparo amaro. She had fallen on and sustained a hematoma to the right buttock. Since that time the hematoma has increased in size and has become more painful. She does take Coumadin for atrial fibrillation and has not stopped taking this since her fall. When she was seen in the office today by Amparo amaro she was sent to the emergency department for possible surgical drainage of the hematoma. She denies any fevers or chills. History - Past Medical History Cardiovascular: reports: Hypertension, Atrial fibrillation Respiratory: reports: Asthma Neuro: reports: None Endocrine/Autoimmune: reports: None GI: reports: Chronic constipation : reports: None HEENT: reports: Macular degeneration Psych: reports: None Musculoskeletal: reports: None Derm: reports: None MRSA Hx?: No - Past Surgical History General: reports: Bowel surgery (hemicoloctomy) Ortho: reports: Spine surgery HEENT: reports: Cataracts, Tonsil/Adenoidectomy Derm: reports: Skin cancer surgery, Other - POLST Patient has POLST: Yes POLST Status: DNR Meds/Allgy - Home Medications Home Medications: Ambulatory Orders Medication Instructions Recorded Confirmed Ascorbic Acid [Vitamin C] 500 mg PO DAILY 11/20/16 04/23/17 Warfarin [Coumadin] 5 mg PO MOFR@1400 11/20/16 04/23/17 Calcium Carbonate [Tums (Calcium 750 mg PO BID tablet 11/27/16 04/23/17 Carbonate 500mg)] Carvedilol [Coreg] 12.5 mg PO BID tablet 11/27/16 04/23/17 Fluticasone 110 Mcg [Flovent] 1 puffs INH BID 04/07/17 04/23/17 Warfarin [Coumadin] 2.5 mg PO SUTUWETHSA@1400 04/07/17 04/23/17 Furosemide 20 mg PO DAILY #30 tablet 04/08/17 04/23/17 Spironolactone [Aldactone] 25 mg PO DAILY #30 tablet 04/08/17 04/23/17 HYDROcod/ACETAM 5/325 [Sunray 5/325] 1 tab PO Q6H PRN #15 tablet 04/23/17 Sulfamethox/Trimeth 800/160 1 each PO BID #14 tablet 04/23/17 [Bactrim Ds 800/160] - Allergies Allergies/Adverse Reactions: Allergies Allergy/AdvReac Type Severity Reaction Status Date / Time albuterol Allergy Unknown Verified 04/23/17 14:03 verapamil [Verapamil] Allergy Rash Verified 04/23/17 14:03 codeine AdvReac Dizziness Verified 04/23/17 14:03 digoxin AdvReac Dizziness Verified 04/23/17 14:03 diltiazem AdvReac Dizziness Verified 04/23/17 14:03 metoprolol AdvReac Dizziness Verified 04/23/17 14:03 oxycodone [Oxycodone] AdvReac Nausea Verified 04/23/17 14:03 Review of Systems - Constitutional Constitutional: denies: Fever, Weakness - Cardiovascular Cariovascular: reports: Irregular heart rate - Gastrointestinal Gastrointestinal: reports: Other (Possible port site hernia, however, due to discomfort with patient positioning unable to fully assess abdominal wall.). denies: Abdominal pain Exam - Vital Signs Reviewed Vital Signs: Yes - Physical Exam General Appearance: positive: No acute distress Respiratory: positive: No respiratory distress, Breath sounds nml Cardiovascular: positive: Irregularly irregular Abdomen: positive: Non-tender, Other (Possible hernia at left port site incision , however, unable to fully examine patient as she is having pain in the supine position secondary to the buttock hematoma) Extremities: positive: Other (Approximately 6 x 6 cm hematoma on right buttock with overlying blanching erythema.No open wound present.Tender to palpation) Conclusion/Plan - Diagnosis Diagnosis: Buttock hematoma - Plan Plan: The patient has a right buttock hematoma resulting from a fall during and her state of hypercoagulability being on Coumadin. Her INR measured in the hospital today is over 4. She does have overlying erythema, however, this is likely reactive cellulitis rather than infectious cellulitis. Her WBC is normal and she is afebrile. At this time I do not recommend draining the hematoma as this will create a nidus for infection and prolonged wound healing. I am recommending the patient to hold her Coumadin and to place heat pads on the hematoma to allow fot reabsorption of the hematoma. Additionally she should obtain a doughnut for sitting purposes and avoid prolonged periods of sitting on the hematoma. She will follow-up with me in 1 week to ensure that the hematoma is resolving. No antibiotics are recommended at this time. - Lab Results Fish Bones: 04/23/17 15:01 04/23/17 15:01 - Diagnostic Imaging Results Diagnostic Imaging Results: positive: Final report reviewed Diagnostic Imaging Results Comments: 4 cm complex fluid collection in right buttock subcutaneous tissue which is heterogeneous. Given the patient's history this is representing a complex hematoma.
== END 2017-04-23 18:36 | disposition home or self-care (01) ==
LOC: ED 13:10
DX: S30.0XXA Contusion of lower back and pelvis, initial encounter (principal); W19.XXXA Unspecified fall, initial encounter; L08.9 Local infection of the skin and subcutaneous tissue, unspecified; K43.2 Incisional hernia without obstruction or gangrene; I10 Essential (primary) hypertension; I48.91 Unspecified atrial fibrillation; Z79.01 Long term (current) use of anticoagulants
CPT/HCPCS: 36415; 76882; 80053; 83690; 83735; 85025; 85610; 96365; 96367; 99283; 99284; J3370

== ENCOUNTER 2017-04-26 09:36 | Outpatient (CLI) | payer MEDICARE, OTHER ==
[2017-04-26 09:54] LABS: INR 1.3 (0.8-1.2)
[2017-04-26 10:06] LABS: CALCIUM 9.7 mg/dL (8.5-10.3); CREATININE 1.5 mg/dL (0.4-1.0)
== END 2017-04-26 09:37 | disposition home or self-care (01) ==
LOC: LAB 09:36
PROVIDERS: ATTEND Internal Medicine
DX: I48.91 Unspecified atrial fibrillation (principal); Z79.01 Long term (current) use of anticoagulants; I10 Essential (primary) hypertension
CPT/HCPCS: 36415; 80048; 85610

== ENCOUNTER 2017-05-14 10:01 | Outpatient (CLI) | payer MEDICARE, OTHER | END 2017-05-14 10:02 | disposition home or self-care (01) | LOC: LAB 10:01 | PROVIDERS: ATTEND Internal Medicine | DX: I48.91 Unspecified atrial fibrillation (principal); Z79.01 Long term (current) use of anticoagulants | CPT/HCPCS: 85610 ==

== ENCOUNTER 2017-05-28 11:40 | Outpatient (CLI) | payer MEDICARE, OTHER | END 2017-05-28 11:41 | disposition home or self-care (01) | LOC: LAB 11:40 | PROVIDERS: ATTEND Internal Medicine | DX: I48.91 Unspecified atrial fibrillation (principal); Z79.01 Long term (current) use of anticoagulants | CPT/HCPCS: 85610 ==

== ENCOUNTER 2017-06-07 10:34 | Outpatient (CLI) | payer MEDICARE, OTHER | END 2017-06-07 10:35 | disposition critical access hospital (66) | LOC: EMS 10:34 | PROVIDERS: ATTEND Surgery | DX: R06.02 Shortness of breath (principal) | CPT/HCPCS: A0425; A0427 ==

== ENCOUNTER 2017-06-07 10:46 | Inpatient (IN) | payer MEDICARE, OTHER ==
[2017-06-07] MEDS ORDERED: predniSONE 20 MG TABLET PO STA (10:49)
[2017-06-07] MEDS ORDERED: LEVALBUTEROL 1.25 MG/3 ML NEB INH STA ×2 (10:50→13:51)
--- NOTE | 2017-06-07 10:53 | ED Physician Documentation ---
History of Present Illness - Stated complaint Stated Complaint: SOA - Additonal information Additional information: hx from pt 89 f hx CHF and asthma swollen ankles for a month taking diuretic soa for two days and a cough no fever no chest pain wheezing and better after duoneb from EMS Review of Systems Constitutional: denies: Fever, Chills Cardiac: denies: Chest pain / pressure Respiratory: reports: Dyspnea, Cough, Wheezing GI: denies: Abdominal Pain, Vomiting, Diarrhea Musculoskeletal: reports: Extremity swelling Endocrine: denies: Easy bruising / bleeding Immunocompromised: denies: Immunocompromised PD PAST MEDICAL HISTORY - Past Medical History Cardiovascular: Hypertension, Atrial fibrillation Respiratory: Asthma Neuro: None Endocrine/Autoimmune: None GI: Chronic constipation : None HEENT: Macular degeneration Psych: None Musculoskeletal: None Derm: None - Past Surgical History Past Surgical History: Yes General: Bowel surgery (hemicoloctomy) Ortho: Spine surgery HEENT: Cataracts, Tonsil/Adenoidectomy Derm: Skin cancer surgery, Other - Present Medications Home Medications: Ambulatory Orders Medication Instructions Recorded Confirmed Ascorbic Acid [Vitamin C] 500 mg PO DAILY 11/20/16 06/07/17 Warfarin [Coumadin] 5 mg PO MOFR@1400 11/20/16 06/07/17 Calcium Carbonate [Tums (Calcium 750 mg PO BID tablet 11/27/16 06/07/17 Carbonate 500mg)] Carvedilol [Coreg] 12.5 mg PO BID tablet 11/27/16 06/07/17 Fluticasone 110 Mcg [Flovent] 1 puffs INH BID 04/07/17 06/07/17 Warfarin [Coumadin] 2.5 mg PO SUTUWETHSA@1400 04/07/17 06/07/17 Furosemide 20 mg PO DAILY #30 tablet 04/08/17 06/07/17 Spironolactone [Aldactone] 25 mg PO DAILY #30 tablet 04/08/17 06/07/17 Cholecalciferol (Vitamin D3) 2,000 units PO DAILY 06/07/17 06/07/17 [Vitamin D3] - Allergies Allergies/Adverse Reactions: Allergies Allergy/AdvReac Type Severity Reaction Status Date / Time albuterol Allergy Unknown Verified 04/23/17 14:03 verapamil [Verapamil] Allergy Rash Verified 04/23/17 14:03 codeine AdvReac Dizziness Verified 04/23/17 14:03 digoxin AdvReac Dizziness Verified 04/23/17 14:03 diltiazem AdvReac Dizziness Verified 04/23/17 14:03 metoprolol AdvReac Dizziness Verified 04/23/17 14:03 oxycodone [Oxycodone] AdvReac Nausea Verified 04/23/17 14:03 - Social History Does the pt smoke?: No Smoking Status: Never smoker Does the pt drink ETOH?: No Does the pt have substance abuse?: No - Immunizations Immunizations are current?: Yes - POLST Patient has POLST: Yes POLST Status: DNR PD ED PE NORMAL - Vitals Vital signs reviewed: Yes - General General: Alert and oriented X 3 - HEENT HEENT: Atraumatic - Neck Neck: Supple, no meningeal sign - Cardiac Cardiac: RRR - Respiratory Respiratory: No respiratory distress, Other (gaudencio wheezing no rales) - Abdomen Abdomen: Non tender - Derm Derm: Normal color - Extremities Extremities: Other (mod symm edema) - Neuro Neuro: Alert and oriented X 3 Results - Vitals Vitals: Vital Signs - 24 hr 06/07/17 06/07/17 06/07/17 10:46 10:55 11:26 Temperature Heart Rate 52 L 98 98 Respiratory 22 18 18 Rate Blood Pressure 119/104 H 136/102 H O2 Saturation 97 96 06/07/17 06/07/17 06/07/17 13:45 13:47 14:38 Temperature Heart Rate 76 60 Respiratory 18 18 Rate Blood Pressure 164/88 H O2 Saturation 100 100 06/07/17 15:40 Temperature 36.7 C Heart Rate 94 Respiratory 17 Rate Blood Pressure 161/94 H O2 Saturation 100 Oxygen O2 Source Nasal cannula Oxygen Flow Rate 1 - EKG (time done) 1058 Rate: Rate (enter#) (99) Rhythm: Atrial fibrillation Other comments: Other comments (essentially unreadbale 2/2 artifact -tech states she tried several times) - Labs Labs: Laboratory Tests 06/07/17 06/07/17 06/07/17 10:55 11:34 11:34 WBC 6.1 RBC 3.74 L Hgb 11.3 L Hct 34.5 L MCV 92.1 MCH 30.1 MCHC 32.7 RDW 17.3 H Plt Count 211 MPV 8.4 Neut # 5.0 Lymph # 0.[address] [place] # 0.5 Eos # 0.0 Baso # 0.0 Absolute Nucleated RBC 0.00 Nucleated RBC % 0.0 Whole Blood INR 1.9 H Sodium Potassium Chloride Carbon Dioxide Anion Gap BUN Creatinine Estimated GFR (MDRD) Glucose Calcium Troponin I B-Natriuretic Peptide Influenza A (Rapid) Negative Influenza B (Rapid) Negative Influenza Types A,B Ag - 06/07/17 06/07/17 06/07/17 11:34 11:34 11:34 WBC RBC Hgb Hct MCV MCH MCHC RDW Plt Count MPV Neut # Lymph # [place] # Eos # Baso # Absolute Nucleated RBC Nucleated RBC % Whole Blood INR Sodium 138 Potassium 3.0 L Chloride 98 L Carbon Dioxide 29 Anion Gap 11.0 BUN 25 H Creatinine 1.0 Estimated GFR (MDRD) 52 L Glucose 174 H Calcium 9.5 Troponin I < 0.04 B-Natriuretic Peptide 642 H Influenza A (Rapid) Influenza B (Rapid) Influenza Types A,B Ag - Rads (name of study) CXR Radiology: See rad report (bibasilar infiltrates or atelectasis, small effusions , cardiomegaly, no sig edema) PD MEDICAL DECISION MAKING - ED course ED course: gave solumedrol, and nebs still wheezing and soa, req O2, sat 90-93% on 2L will admit CXR shows bibasilar atelectasis vs infiltrates so gave ab as well even with xopenex pt started to get quite tachy with nebs so had to hold spoke to hospitalist re admission approx 145 - 2 PM Departure - Departure Disposition: 66 [facility] DC/Xfer Clinical Impression: Hypoxia Pneumonia Qualifiers: Pneumonia type: due to unspecified organism Laterality: bilateral Lung location : lower lobe of lung Qualified Code(s): J18.9 - Pneumonia, unspecified organism Asthma Qualifiers: Asthma severity: unspecified severity Asthma persistence: unspecified Asthma complication type: with acute exacerbation Qualified Code(s): J45.901 - Unspecified asthma with (acute) exacerbation Condition: Fair Discharge Date/Time: 06/07/17 16:42
--- NOTE | 2017-06-07 11:10 | XRAY Report ---
EXAM: CHEST RADIOGRAPHY EXAM DATE: 06/07/2017 11:03 AM. CLINICAL HISTORY: Altered mental status. COMPARISON: 04/07/2017. TECHNIQUE: 1 view. FINDINGS: Lungs/Pleura: Increased bibasilar opacities with probable small bilateral pleural effusions. Mildly e levated left hemidiaphragm. Upper lungs unchanged. No erasmo pulmonary edema. No pneumothorax. Mediastinum: Mild cardiomegaly and stable superior mediastinal contour. Other: No acute fracture evident. IMPRESSION: 1. Mildly increased bibasilar atelectasis/infiltrates. Probable small pleural effusions. 2. Mild cardiomegaly, without overt pulmonary edema. [facility] Referring Provider Line: [phone] SITE ID: [id number]
--- NOTE | 2017-06-07 11:10 | XRAY Preliminary Report ---
Exam: XR CHEST 1 VIEW X-RAY IMPRESSION: 1. Mildly increased bibasilar atelectasis/infiltrates. Probable small pleural effusions. 2. Mild cardiomegaly, without overt pulmonary edema. [facility] SITE ID: [id number]
[2017-06-07 11:43] LABS: BASOPHILS % (AUTO) 0.5 %; EOSINOPHILS % (AUTO) 0.5 %; HGB - HEMOGLOBIN 11.3 g/dL (12.0-16.0); LYMPHOCYTES # (AUTO) 0.5 10^3/uL (1.5-3.5); LYMPHOCYTES % (AUTO) 8.2 %; MEAN CORPUSCULAR HEMOGLOBIN 30.1 pg (27.0-31.0); MEAN CORPUSCULAR HGB CONC 32.7 g/dL (32.0-36.0); MEAN CORPUSCULAR VOLUME 92.1 fL (81.0-99.0); MEAN PLATELET VOLUME 8.4 fL (7.9-10.8); MONOCYTES # (AUTO) 0.5 10^3/uL (0.0-1.0); MONOCYTES % (AUTO) 8.8 %; PLT - PLATELET COUNT 211 10^3/uL (130-450); RED BLOOD COUNT 3.74 10^6/uL (4.20-5.40); RED CELL DISTRIBUTION WIDTH 17.3 % (12.0-15.0); WHITE BLOOD COUNT 6.1 x10^3/uL (4.8-10.8)
[2017-06-07 11:54] LABS: CALCIUM 9.5 mg/dL (8.5-10.3)
[2017-06-07] MEDS ORDERED: cefTRIAXone 1 GM in SODIUM CHLORIDE 0.9% MINIBAG 100 ML IV STA (13:51)
[2017-06-07] MEDS ORDERED: AZITHROMYCIN 250 MG TABLET PO STA (13:51)
[2017-06-07] MEDS ORDERED: SODIUM CHLORIDE 0.9% 1,000 ML IV SCH (16:00)
--- NOTE | 2017-06-07 17:53 | HISTORY & PHYSICAL EXAMINATION ---
Chief Complaint - Chief Complaint Chief Complaint: shortness of breath and wheezing History of Present Illness - Admitted From Admitted From:: ED - History Obtained From Records Reviewed: yes History obtained from: chart review, patient Exam Limitations: none - History of Present Illness HPI Comment/Other: Mae Carpio is an 89-year old white female with a past medical history of pulmonary hypertension, CHF, asthma, hypertension, atrial fibrillation, chronic constipation, abdominal hernia, macular degeneration and anticoagulated on warfarin. Patient presented to the ED with a 2-day history of coughing, wheezing and progressive shortness of breath. She believes she was exposed to an Cindy tree that is blooming. She also admits to swollen ankles, weight gain , and a non-productive cough. She denies fevers, chills, weight loss, poor appetite, vomiting or falls. She will be admitted for asthma exacerbation and CHF. 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 - Past Surgical History General: reports: Bowel surgery Ortho: reports: Spine surgery HEENT: reports: Cataracts, Tonsil/Adenoidectomy Derm: reports: Skin cancer surgery, Other - Family & Social History Family History: Mother: , Cancer, Father: , Cancer Family History Comment/Other: Mother: , Cancer (Father-colon CA, mother lung CA), Father: , Cancer Living arrangement: At home Living Situation: Alone Social History Notes: The patient attended 4 years of college and worked at a [employer], raised her 5 children, and her . 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 - Substance History Use: Uses substance without health or social issues: NONE Abuse: Recurrent use of substance despite neg consequences: NONE Dependence: Experiences withdrawal or developed tolerances: NONE - POLST Patient has POLST: Yes POLST Status: Full Code Meds/Allgy - Home Medications Home Medications: Ambulatory Orders Medication Instructions Recorded Confirmed Ascorbic Acid [Vitamin C] 500 mg PO DAILY 11/20/16 06/07/17 Warfarin [Coumadin] 5 mg PO MOFR@1400 11/20/16 06/07/17 Calcium Carbonate [Tums (Calcium 750 mg PO BID tablet 11/27/16 06/07/17 Carbonate 500mg)] Carvedilol [Coreg] 12.5 mg PO BID tablet 11/27/16 06/07/17 Fluticasone 110 Mcg [Flovent] 1 puffs INH BID 04/07/17 06/07/17 Warfarin [Coumadin] 2.5 mg PO SUTUWETHSA@1400 04/07/17 06/07/17 Furosemide 20 mg PO DAILY #30 tablet 04/08/17 06/07/17 Spironolactone [Aldactone] 25 mg PO DAILY #30 tablet 04/08/17 06/07/17 Cholecalciferol (Vitamin D3) 2,000 units PO DAILY 06/07/17 06/07/17 [Vitamin D3] - Allergies Allergies/Adverse Reactions: Allergies Allergy/AdvReac Type Severity Reaction Status Date / Time albuterol Allergy Unknown Verified 04/23/17 14:03 verapamil [Verapamil] Allergy Rash Verified 04/23/17 14:03 codeine AdvReac Dizziness Verified 04/23/17 14:03 digoxin AdvReac Dizziness Verified 04/23/17 14:03 diltiazem AdvReac Dizziness Verified 04/23/17 14:03 metoprolol AdvReac Dizziness Verified 04/23/17 14:03 oxycodone [Oxycodone] AdvReac Nausea Verified 04/23/17 14:03 Review of Systems - Constitutional Constitutional: reports: Fatigue, Weakness, Weight gain - Eyes Eyes: reports: Corrective lenses - Ears, Nose & Throat Ears, Nose & Throat: reports: Nasal congestion, Postnasal drainage, Hoarseness - Cardiovascular Cariovascular: reports: Irregular heart rate, Edema, Exertional dyspnea, Decr. exercise tolerance, Orthopnea - Respiratory Respiratory: reports: Cough, Wheezing, Orthopnea, SOB with exertion - Gastrointestinal Gastrointestinal: reports: Abdominal distention, Constipation - Genitourinary Genitourinary: reports: Frequency, Urgency, Incontinence, Nocturia - Integumentary Integumentary: reports: Dryness - Neurological Neurological: reports: General weakness, Pre-existing deficit - All Other Systems All Other Systems: reports: Reviewed and negative Exam - Vital Signs Reviewed Vital Signs: Yes Vital Signs: Vital Signs x48h Temp Pulse Pulse Resp BP BP Pulse Ox 06/07/17 16:57 36.6 C 88 20 165/100 H 96 06/07/17 16:41 104 H 16 156/111 H 100 - Physical Exam General Appearance: positive: No acute distress, Alert Eyes Bilateral: positive: Normal inspection, PERRL ENT: positive: ENT inspection nml, Pharynx nml, Dry mucous membranes Neck: positive: Nml inspection, Thyroid nml, No JVD Respiratory: positive: Chest non-tender, Wheezes, Rhonchi Cardiovascular: positive: No gallop, Irregularly irregular, Systolic murmur, Decreased pulse(s) Peripheral Pulses: positive: 1+ Abdomen: positive: Non-tender, Guarding, Abnml bowel sounds, Other (rounded, soft) Back: positive: Nml inspection Skin: positive: No rash, Warm, Dry, Pallor Extremities: positive: Non-tender, Full ROM, Pedal edema Neurologic/Psychiatric: positive: Oriented x3, CN's nml (2-12), Motor nml, Sensation nml, Mood/affect nml Reflexes: Bicep (R): 3+, Bicep (L): 3+ Conclusion/Plan - Problem List (1) Asthma Conclusion/Plan: Patient believes that her asthma started after being exposed to [place] trees outside. She does not have any rescue inhaler left at home, but used to take Xopenex. She does not use oxygen at home. Plan: Give supplemental O2, IV steroids, IV antibiotics and monitor vital signs. Qualifiers: Asthma severity: unspecified severity Asthma persistence: unspecified Asthma complication type: with acute exacerbation Qualified Code(s): J45.901 - Unspecified asthma with (acute) exacerbation (2) Chronic anticoagulation Conclusion/Plan: Patient continues on Warfarin with frequent INR checks for her chronic atrial fibrillation. Her INR on admission was slightly low at 1.9. Plan: continue to monitor INRs and continue coumadin, with minor adjustments. (3) Congestive heart failure Conclusion/Plan: Patient has not had an echocardiogam since 09/2016. She was started on Spironolactone in April for enlarged RV, and edema. She has increased abdominal girth, increased BLE and increased breathing efforts. Plan: Use diuretics, daily weights, and an echocardiogram is ordered and pending. - Lab Results Lab results reviewed: Yes Fish Bones: 06/08/17 16:47 06/08/17 16:47 - Diagnostic Imaging Results Diagnostic Imaging Results: positive: Prelim report reviewed, Final report reviewed - EKG Results EKG Interpreted Independently: Yes Core Measures - Anticipated LOS I expect patient to be DC'd or transferred within 96 hours.: Yes - DVT/VTE - Prophylaxis VTE/DVT Device ordered at admit?: Yes VTE/DVT Prophylaxis med ordered at admit?: No Not Ordered - Medical Reason: Contraindicated (on coumadin) - Stroke - Rehab Assessment Rehab services assessment to be ordered?: No Not Ordered - Medical Reason: Contraindicated - AMI - Statin at Admit Aspirin Prescribed on Admit: No Not Ordered - Medical Reason: Contraindicated
[2017-06-07] MEDS: SODIUM CHLORIDE FLUSH 0.9% 10 ML SYRINGE IVP SCH ×2 (19:42→22:44)
[2017-06-07] MEDS ORDERED: FUROSEMIDE 40 MG/4 ML VIAL IVP SCH (20:00)
[2017-06-07] MEDS: CARVEDILOL 12.5 MG TABLET PO SCH (20:56)
[2017-06-07] MEDS ORDERED: WARFARIN 5 MG TABLET PO SCH (22:00)
[2017-06-07] MEDS ORDERED: FLUTICASONE HFA 110 MCG INHALER INH SCH (22:00)
[2017-06-07] MEDS: methylPREDNISolone SUCCINATE 40 MG/ML VIAL IVP SCH (22:44)
[2017-06-08] MEDS ORDERED: BENZOCAINE/MENTHOL LOZENGE MM ONE (01:16)
[2017-06-08] MEDS: BENZOCAINE/MENTHOL LOZENGE MM PRN (05:54)
[2017-06-08] MEDS: SODIUM CHLORIDE FLUSH 0.9% 10 ML SYRINGE IVP SCH ×3 (05:54→23:49)
[2017-06-08] MEDS: methylPREDNISolone SUCCINATE 40 MG/ML VIAL IVP SCH ×3 (05:54→22:17)
[2017-06-08] MEDS ORDERED: FLUTICASONE HFA 110 MCG INHALER INH SCH (07:14)
[2017-06-08] MEDS: CARVEDILOL 12.5 MG TABLET PO SCH ×2 (08:20→20:42)
[2017-06-08] MEDS: POLYETHYLENE GLYCOL 3350 17 GM PACKET PO SCH (08:20)
[2017-06-08] MEDS: SPIRONOLACTONE 25 MG TABLET PO SCH (08:20)
[2017-06-08] MEDS: LEVALBUTEROL 1.25 MG/3 ML NEB INH PRN (09:03)
[2017-06-08] MEDS ORDERED: MIN OIL/DIMETHICON/COCONUT OIL 92 GM TUBE TOP PRN (13:24)
[2017-06-08] MEDS ORDERED: WARFARIN 5 MG TABLET PO SCH ×2 (14:00)
--- NOTE | 2017-06-08 16:50 | PROVIDER PROGRESS NOTE ---
Subjective - Prog Note Date Prog Note Date: 06/08/17 Prog Note Time: 12:00 - Subjective Pt reports feeling: No change Subjective: Mae wishes to return home, but explanation of the course of treatment helped to convince her to stay at least one more night. She denies chest pain, N/V or an increased cough. Current Medications - Current Medications Current Medications: Active Medications Carvedilol (Coreg) 12.5 mg PO BID [facility] Last Admin: 06/08/17 08:20 Dose: 12.5 mg Fluticasone Propionate (Flovent) 1 puffs INH RTBID [facility] Furosemide (Lasix Inj 40 Mg Vial) 40 mg IVP DAILY [facility] Ceftriaxone Sodium 1 gm/ (Sodium Chloride) 100 mls @ 200 mls/hr IV Q24H [facility] Levalbuterol HCl (Xopenex) 1.25 mg INH Q4H PRN PRN Reason: Shortness of Air/Wheezing Last Admin: 06/08/17 09:03 Dose: 1.25 mg Methylprednisolone (Solu-Medrol (40mg Vial)) 40 mg IVP TID [facility] Last Admin: 06/08/17 14:14 Dose: 40 mg Mineral Oil (Cavilon) 1 applic TOP PRN PRN PRN Reason: Skin Care Polyethylene Glycol (Miralax) 17 gm PO DAILY [facility] Last Admin: 06/08/17 08:20 Dose: Not Given Sodium Chloride (Normal Saline Flush 0.9%) 10 ml IVP PRN PRN PRN Reason: NEEDED PER PROVIDER ORDERS Sodium Chloride (Normal Saline Flush 0.9%) 10 ml IVP 0100,0900,1700 [facility] Last Admin: 06/08/17 14:15 Dose: 10 ml Spironolactone (Aldactone) 25 mg PO DAILY [facility] Last Admin: 06/08/17 08:20 Dose: 25 mg Throat Lozenges (Cepacol) 1 lozenge MM Q2HR PRN PRN Reason: Throat pain Last Admin: 06/08/17 05:54 Dose: 1 lozenge Warfarin Sodium (Coumadin) 2.5 mg PO SUTUWETHSA@1400 [facility] Warfarin Sodium (Coumadin) 5 mg PO MOFR@1400 [facility] Last Admin: 06/08/17 14:22 Dose: 5 mg Ascorbic Acid [Vitamin C] 500 mg PO DAILY 11/20/16 Warfarin [Coumadin] 5 mg PO MOFR@1400 11/20/16 Fluticasone 110 Mcg [Flovent] 1 puffs INH BID 04/07/17 Warfarin [Coumadin] 2.5 mg PO SUTUWETHSA@1400 04/07/17 Cholecalciferol (Vitamin D3) [Vitamin D3] 2,000 units PO DAILY 06/07/17 Objective - Vital Signs/Intake & Output Reviewed Vital Signs: Yes Vital Signs: Vital Signs x48h Temp Pulse Pulse Resp BP Pulse Ox 06/08/17 16:00 36.3 C L 66 18 144/85 H 97 06/08/17 13:48 36.6 C 76 18 116/61 100 06/08/17 09:03 77 16 Intake & Output: Intake & Output 06/05/17 06/06/17 06/07/17 06/08/17 23:59 23:59 23:59 23:59 Intake Total 440 1490 Output Total 150 Balance 440 1340 - Objective General Appearance: positive: No acute distress, Alert Eyes Bilateral: positive: Normal inspection Eyes: OU Conjunctivae pale ENT: positive: ENT inspection nml, Pharynx nml, No signs of dehydration Neck: positive: Nml inspection, Thyroid nml, No JVD Respiratory: positive: Chest non-tender, No respiratory distress, Breath sounds nml, Wheezes, Other (crackles.) Cardiovascular: positive: Regular rate & rhythm, Systolic murmur, Diastolic murmur, Decreased pulse(s) Peripheral Pulses: 1+ Radial (R), 1+ Radial (L) Back: positive: Nml inspection Skin: positive: No rash, Warm, Dry Extremities: positive: Non-tender, Full ROM, Nml appearance, Pedal edema Neurologic/Psychiatric: positive: Oriented x3, CN's nml (2-12), Motor nml, Sensation nml, Mood/affect nml Reflexes: Bicep (R): 3+, Bicep (L): 3+ - Lab Results Fish Bones: 06/08/17 16:47 06/08/17 16:47 - Diagnostic Imaging Diagnostic Imaging Results: positive: Final report reviewed Diagnostic Imaging Comments: EXAM: CHEST RADIOGRAPHY EXAM DATE: 06/07/2017 11:03 AM. CLINICAL HISTORY: Altered mental status. COMPARISON: 04/07/2017. TECHNIQUE: 1 view. FINDINGS: Lungs/Pleura: Increased bibasilar opacities with probable small bilateral pleural effusions. Mildly elevated left hemidiaphragm. Upper lungs unchanged. No erasmo pulmonary edema. No pneumothorax. Mediastinum: Mild cardiomegaly and stable superior mediastinal contour. Other: No acute fracture evident. IMPRESSION: 1. Mildly increased bibasilar atelectasis/infiltrates. Probable small pleural effusions. 2. Mild cardiomegaly, without overt pulmonary edema. Assessment/Plan - Problem List (1) Asthma Impression: Patient believes that her asthma started after being exposed to [place]indy trees outside. She does not have any rescue inhaler left at home, but used to take Xopenex. She does not use oxygen at home. Plan: Give supplemental O2, IV steroids, IV antibiotics and monitor vital signs. Qualifiers: Asthma severity: unspecified severity Asthma persistence: unspecified Asthma complication type: with acute exacerbation Qualified Code(s): J45.901 - Unspecified asthma with (acute) exacerbation (2) Chronic anticoagulation Impression: Patient continues on Warfarin with frequent INR checks for her chronic atrial fibrillation. Her INR on admission was slightly low at 1.9, and today back up to 2.3. Plan: continue to monitor INRs and continue coumadin, with minor adjustments. (3) Congestive heart failure Qualifiers: Congestive heart failure chronicity: acute on chronic (4) Bilateral pneumonia Impression: As per admitting chest x-ray, there are bilateral infiltrates and atelectasis appreciated, probable small pleural effusions, cardiomegaly without pulmonary edema. Plan: Continue on Rochephin every 24 hours, respiratory care, flutter valve, nebs and continue to monitor labs. Qualifiers: Lung location: lower lobe of lung
[2017-06-08 16:57] LABS: BASOPHILS % (AUTO) 0.2 %; HGB - HEMOGLOBIN 11.5 g/dL (12.0-16.0); LYMPHOCYTES # (AUTO) 0.3 10^3/uL (1.5-3.5); LYMPHOCYTES % (AUTO) 6.6 %; MEAN CORPUSCULAR HEMOGLOBIN 29.9 pg (27.0-31.0); MEAN CORPUSCULAR HGB CONC 32.4 g/dL (32.0-36.0); MEAN CORPUSCULAR VOLUME 92.4 fL (81.0-99.0); MEAN PLATELET VOLUME 8.4 fL (7.9-10.8); MONOCYTES # (AUTO) 0.4 10^3/uL (0.0-1.0); MONOCYTES % (AUTO) 7.7 %; NEUTROPHILS # (AUTO) 4.5 10^3/uL (1.5-6.6); NEUTROPHILS % (AUTO) 85.5 %; PLT - PLATELET COUNT 220 10^3/uL (130-450); RED BLOOD COUNT 3.86 10^6/uL (4.20-5.40); RED CELL DISTRIBUTION WIDTH 17.2 % (12.0-15.0); WHITE BLOOD COUNT 5.2 x10^3/uL (4.8-10.8)
[2017-06-08 17:04] LABS: ALBUMIN 3.4 g/dL (3.2-5.5); BILIRUBIN,TOTAL 0.7 mg/dL (0.2-1.0); CALCIUM 9.2 mg/dL (8.5-10.3); TOTAL PROTEIN 6.8 g/dL (6.7-8.2)
[2017-06-08 17:06] LABS: INR 2.3 (0.8-1.2); PT - PROTHROMBIN TIME 25.3 secs (9.9-12.6)
[2017-06-08] MEDS: cefTRIAXone 1 GM in SODIUM CHLORIDE 0.9% MINIBAG 100 ML IV SCH (20:42)
[2017-06-08] MEDS: FLUTICASONE HFA 110 MCG INHALER INH SCH (20:44)
[2017-06-08] MEDS: FUROSEMIDE 40 MG/4 ML VIAL IVP SCH (20:45)
[2017-06-09 00:04] LABS: BILIRUBIN,URINE NEGATIVE (NEGATIVE); GLUCOSE, URINE (UA) NEGATIVE (NEGATIVE); KETONES,URINE (UA) NEGATIVE (NEGATIVE); LEUKOCYTE ESTERASE, URINE NEGATIVE (NEGATIVE); NITRITE,URINE NEGATIVE (NEGATIVE); OCCULT BLOOD,URINE NEGATIVE (NEGATIVE); PH,URINE 5.5 PH (5.0-7.5); PROTEIN,URINE NEGATIVE (NEGATIVE); UROBILINOGEN,URINE 0.2 (NORMAL) E.U./dL (NORMAL)
[2017-06-09 00:38] LABS: BACTERIA,URINE None Seen /HPF (None Seen); CLARITY,URINE CLEAR (CLEAR); RBC,URINE None Seen /HPF (0-5); SQUAMOUS EPITHELIAL CELL,UR RARE Squamous (<= Few)
[2017-06-09 05:35] LABS: BASOPHILS % (AUTO) 0.1 %; HGB - HEMOGLOBIN 10.9 g/dL (12.0-16.0); LYMPHOCYTES # (AUTO) 0.4 10^3/uL (1.5-3.5); LYMPHOCYTES % (AUTO) 5.6 %; MEAN CORPUSCULAR HEMOGLOBIN 29.7 pg (27.0-31.0); MEAN CORPUSCULAR HGB CONC 32.3 g/dL (32.0-36.0); MEAN CORPUSCULAR VOLUME 92.2 fL (81.0-99.0); MEAN PLATELET VOLUME 8.5 fL (7.9-10.8); MONOCYTES # (AUTO) 0.3 10^3/uL (0.0-1.0); NEUTROPHILS # (AUTO) 5.8 10^3/uL (1.5-6.6); NEUTROPHILS % (AUTO) 89.3 %; PLT - PLATELET COUNT 199 10^3/uL (130-450); RED BLOOD COUNT 3.67 10^6/uL (4.20-5.40); RED CELL DISTRIBUTION WIDTH 16.7 % (12.0-15.0); WHITE BLOOD COUNT 6.5 x10^3/uL (4.8-10.8)
[2017-06-09 05:39] LABS: INR 3.4 (0.8-1.2); PT - PROTHROMBIN TIME 36.3 secs (9.9-12.6)
[2017-06-09 05:45] LABS: ALBUMIN 3.1 g/dL (3.2-5.5); BILIRUBIN,TOTAL 0.6 mg/dL (0.2-1.0); CALCIUM 8.8 mg/dL (8.5-10.3); TOTAL PROTEIN 6.1 g/dL (6.7-8.2)
[2017-06-09] MEDS: methylPREDNISolone SUCCINATE 40 MG/ML VIAL IVP SCH ×3 (06:06→22:47)
[2017-06-09] MEDS: SODIUM CHLORIDE FLUSH 0.9% 10 ML SYRINGE IVP PRN (06:06)
[2017-06-09] MEDS: FLUTICASONE HFA 110 MCG INHALER INH SCH ×2 (07:08→20:06)
[2017-06-09] MEDS ORDERED: POTASSIUM CHLORIDE 20 MEQ TABLET PO ONE (08:02)
[2017-06-09] MEDS ORDERED: POTASSIUM CHLORIDE 10 MEQ CAPSULE PO ONE (09:15)
[2017-06-09] MEDS: FUROSEMIDE 40 MG/4 ML VIAL IVP SCH (09:18)
[2017-06-09] MEDS: SODIUM CHLORIDE FLUSH 0.9% 10 ML SYRINGE IVP SCH ×2 (09:18→16:18)
[2017-06-09] MEDS: SPIRONOLACTONE 25 MG TABLET PO SCH (09:18)
[2017-06-09] MEDS: CARVEDILOL 12.5 MG TABLET PO SCH ×2 (09:18→22:47)
[2017-06-09] MEDS: POLYETHYLENE GLYCOL 3350 17 GM PACKET PO SCH (09:19)
[2017-06-09] MEDS ORDERED: CALCIUM CARBONATE CHEW 500 MG TABLET PO PRN (10:55)
[2017-06-09] MEDS: LEVALBUTEROL 1.25 MG/3 ML NEB INH PRN ×4 (11:41→23:16)
--- NOTE | 2017-06-09 12:19 | PROVIDER PROGRESS NOTE ---
Subjective - Prog Note Date Prog Note Date: 06/09/17 Prog Note Time: 08:00 - Subjective Pt reports feeling: Improved Subjective: Mae express that she is glad she has stayed since she continues to have exacerbations at night. She denies N/V, chest pain, dizziness or an increased cough. She continues on oxygen. Current Medications - Current Medications Current Medications: Active Medications Calcium Carbonate/Glycine (Tums) 500 mg PO TID PRN PRN Reason: Heartburn Last Admin: 06/09/17 19:04 Dose: 500 mg Calcium Carbonate/Glycine (Tums) 750 mg PO BID [facility] Last Admin: 06/10/17 09:32 Dose: 750 mg Carvedilol (Coreg) 12.5 mg PO BID [facility] Last Admin: 06/10/17 09:33 Dose: 12.5 mg Fluticasone Propionate (Flovent) 1 puffs INH RTBID [facility] Last Admin: 06/10/17 07:44 Dose: 1 puffs Furosemide (Lasix Inj 40 Mg Vial) 40 mg IVP DAILY [facility] Last Admin: 06/10/17 12:52 Dose: 40 mg Ceftriaxone Sodium 1 gm/ (Sodium Chloride) 100 mls @ 200 mls/hr IV Q24H [facility] Last Infusion: 06/09/17 17:10 Dose: Infused Levalbuterol HCl (Xopenex) 1.25 mg INH Q4H PRN PRN Reason: Shortness of Air/Wheezing Last Admin: 06/10/17 12:35 Dose: 1.25 mg Levalbuterol HCl (Xopenex) 1.25 mg INH RTBID [facility] Last Admin: 06/10/17 07:44 Dose: 1.25 mg Methylprednisolone (Solu-Medrol (40mg Vial)) 40 mg IVP TID [facility] Last Admin: 06/10/17 13:33 Dose: 40 mg Mineral Oil (Cavilon) 1 applic TOP PRN PRN PRN Reason: Skin Care Polyethylene Glycol (Miralax) 17 gm PO DAILY [facility] Last Admin: 06/10/17 12:58 Dose: 17 gm Sodium Chloride (Normal Saline Flush 0.9%) 10 ml IVP PRN PRN PRN Reason: NEEDED PER PROVIDER ORDERS Last Admin: 06/10/17 06:26 Dose: 10 ml Sodium Chloride (Normal Saline Flush 0.9%) 10 ml IVP 0100,0900,1700 [facility] Last Admin: 06/10/17 09:34 Dose: 10 ml Spironolactone (Aldactone) 25 mg PO BID [facility] Last Admin: 06/10/17 09:33 Dose: 25 mg Throat Lozenges (Cepacol) 1 lozenge MM Q2HR PRN PRN Reason: Throat pain Last Admin: 06/09/17 19:04 Dose: 1 lozenge Home meds: Ascorbic Acid [Vitamin C] 500 mg PO DAILY 11/20/16 Warfarin [Coumadin] 5 mg PO MOFR@1400 11/20/16 Fluticasone 110 Mcg [Flovent] 1 puffs INH BID 04/07/17 Warfarin [Coumadin] 2.5 mg PO SUTUWETHSA@1400 04/07/17 Cholecalciferol (Vitamin D3) [Vitamin D3] 2,000 units PO DAILY 06/07/17 Objective - Vital Signs/Intake & Output Reviewed Vital Signs: Yes Vital Signs: Vital Signs x48h Temp Pulse Pulse Resp BP Pulse Ox 06/09/17 11:43 88 16 06/09/17 07:41 36.5 C 67 12 151/79 H 96 06/09/17 07:09 80 16 Intake & Output: Intake & Output 06/06/17 06/07/17 06/08/17 06/09/17 23:59 23:59 23:59 23:59 Intake Total 440 2160 340 Output Total 650 1400 Balance 440 1510 -1060 - Objective General Appearance: positive: No acute distress, Alert Eyes Bilateral: positive: Normal inspection Eyes: OU Conjunctivae pale ENT: positive: ENT inspection nml, Pharynx nml, Dry mucous membranes Neck: positive: Nml inspection, Thyroid nml, No JVD Respiratory: positive: Chest non-tender, No respiratory distress, Wheezes, Rhonchi Cardiovascular: positive: No gallop, Irregularly irregular, Systolic murmur, Decreased pulse(s) Peripheral Pulses: 1+ Radial (R), 1+ Radial (L) Abdomen: positive: Non-tender, No organomegaly, Nml bowel sounds, No distention Back: positive: Nml inspection Skin: positive: No rash, Warm, Dry, Pallor Extremities: positive: Non-tender, Pedal edema (chronic edema), Joint swelling Neurologic/Psychiatric: positive: Oriented x3, CN's nml (2-12), Motor nml, Sensation nml, Depressed mood/affect Reflexes: Bicep (R): 1+, Bicep (L): 1+ - Lab Results Fish Bones: 06/10/17 05:39 06/10/17 05:39 Other Labs: Lab Results x24hrs 06/09/17 06/09/17 06/09/17 Range/Units 05:05 05:05 05:05 WBC 6.5 (4.8-10.8) x10^3/uL RBC 3.67 L (4.20-5.40) 10^6/uL Hgb 10.9 L (12.0-16.0) g/dL Hct 33.9 L (37.0-47.0) % MCV 92.2 (81.0-99.0) fL MCH 29.7 (27.0-31.0) pg MCHC 32.3 (32.0-36.0) g/dL RDW 16.7 H (12.0-15.0) % Plt Count 199 (130-450) 10^3/uL MPV 8.5 (7.9-10.8) fL Neut # 5.8 (1.5-6.6) 10^3/uL Lymph # 0.4 L (1.5-3.5) 10^3/uL [place] # 0.3 (0.0-1.0) 10^3/uL Eos # 0.0 (0.0-0.7) 10^3/uL Baso # 0.0 (0.0-0.1) 10^3/uL Absolute Nucleated RBC 0.00 x10^3/uL Nucleated RBC % 0.0 /100WBC PT 36.3 H (9.9-12.6) secs INR 3.4 H (0.8-1.2) Sodium 141 (135-145) mmol/L Potassium 3.1 L (3.5-5.0) mmol/L Chloride 97 L (101-111) mmol/L Carbon Dioxide 31 (21-32) mmol/L Anion Gap 13.0 (6-13) BUN 34 H (6-20) mg/dL Creatinine 1.0 (0.4-1.0) mg/dL Estimated GFR (MDRD) 52 L (>89) Glucose 145 H (70-100) mg/dL Calcium 8.8 (8.5-10.3) mg/dL Magnesium (1.7-2.8) mg/dL Total Bilirubin 0.6 (0.2-1.0) mg/dL AST 20 (10-42) IU/L ALT 17 (10-60) IU/L Alkaline Phosphatase 47 (42-121) IU/L Total Protein 6.1 L (6.7-8.2) g/dL Albumin 3.1 L (3.2-5.5) g/dL Globulin 3.0 (2.1-4.2) g/dL Albumin/Globulin Ratio 1.0 (1.0-2.2) Urine Color Urine Clarity (CLEAR) Urine pH (5.0-7.5) PH Ur Specific [place] (1.002-1.030) Urine Protein (NEGATIVE) mg/dL Urine Glucose (UA) (NEGATIVE) mg/dL Urine Ketones (NEGATIVE) mg/dL Urine Occult Blood (NEGATIVE) Urine Nitrite (NEGATIVE) Urine Bilirubin (NEGATIVE) Urine Urobilinogen (NORMAL) E.U./dL Ur Leukocyte Esterase (NEGATIVE) Urine RBC (0-5) /HPF Urine WBC (0-5) /HPF Ur Squamous Epith Cells (<= Few) Urine Bacteria (None Seen) /HPF Urine Culture Comments 06/08/17 06/08/17 06/08/17 Range/Units 23:45 16:47 16:47 WBC (4.8-10.8) x10^3/uL RBC (4.20-5.40) 10^6/uL Hgb (12.0-16.0) g/dL Hct (37.0-47.0) % MCV (81.0-99.0) fL MCH (27.0-31.0) pg MCHC (32.0-36.0) g/dL RDW (12.0-15.0) % Plt Count (130-450) 10^3/uL MPV (7.9-10.8) fL Neut # (1.5-6.6) 10^3/uL Lymph # (1.5-3.5) 10^3/uL [place] # (0.0-1.0) 10^3/uL Eos # (0.0-0.7) 10^3/uL Baso # (0.0-0.1) 10^3/uL Absolute Nucleated RBC x10^3/uL Nucleated RBC % /100WBC PT 25.3 H (9.9-12.6) secs INR 2.3 H (0.8-1.2) Sodium 139 (135-145) mmol/L Potassium 3.6 (3.5-5.0) mmol/L Chloride 96 L (101-111) mmol/L Carbon Dioxide 31 (21-32) mmol/L Anion Gap 12.0 (6-13) BUN 32 H (6-20) mg/dL Creatinine 1.0 (0.4-1.0) mg/dL Estimated GFR (MDRD) 52 L (>89) Glucose 137 H (70-100) mg/dL Calcium 9.2 (8.5-10.3) mg/dL Magnesium 2.0 (1.7-2.8) mg/dL Total Bilirubin 0.7 (0.2-1.0) mg/dL AST 25 (10-42) IU/L ALT 16 (10-60) IU/L Alkaline Phosphatase 48 (42-121) IU/L Total Protein 6.8 (6.7-8.2) g/dL Albumin 3.4 (3.2-5.5) g/dL Globulin 3.4 (2.1-4.2) g/dL Albumin/Globulin Ratio 1.0 (1.0-2.2) Urine Color LT. YELLOW Urine Clarity CLEAR (CLEAR) Urine pH 5.5 (5.0-7.5) PH Ur Specific [place] 1.010 (1.002-1.030) Urine Protein NEGATIVE (NEGATIVE) mg/dL Urine Glucose (UA) NEGATIVE (NEGATIVE) mg/dL Urine Ketones NEGATIVE (NEGATIVE) mg/dL Urine Occult Blood NEGATIVE (NEGATIVE) Urine Nitrite NEGATIVE (NEGATIVE) Urine Bilirubin NEGATIVE (NEGATIVE) Urine Urobilinogen 0.2 (NORMAL) (NORMAL) E.U./dL Ur Leukocyte Esterase NEGATIVE (NEGATIVE) Urine RBC None Seen (0-5) /HPF Urine WBC 0-3 (0-5) /HPF Ur Squamous Epith Cells RARE Squamous (<= Few) Urine Bacteria None Seen (None Seen) /HPF Urine Culture Comments NOT INDICATED 06/08/17 Range/Units 16:47 WBC 5.2 (4.8-10.8) x10^3/uL RBC 3.86 L (4.20-5.40) 10^6/uL Hgb 11.5 L (12.0-16.0) g/dL Hct 35.7 L (37.0-47.0) % MCV 92.4 (81.0-99.0) fL MCH 29.9 (27.0-31.0) pg MCHC 32.4 (32.0-36.0) g/dL RDW 17.2 H (12.0-15.0) % Plt Count 220 (130-450) 10^3/uL MPV 8.4 (7.9-10.8) fL Neut # 4.5 (1.5-6.6) 10^3/uL Lymph # 0.3 L (1.5-3.5) 10^3/uL [place] # 0.4 (0.0-1.0) 10^3/uL Eos # 0.0 (0.0-0.7) 10^3/uL Baso # 0.0 (0.0-0.1) 10^3/uL Absolute Nucleated RBC 0.00 x10^3/uL Nucleated RBC % 0.1 /100WBC PT (9.9-12.6) secs INR (0.8-1.2) Sodium (135-145) mmol/L Potassium (3.5-5.0) mmol/L Chloride (101-111) mmol/L Carbon Dioxide (21-32) mmol/L Anion Gap (6-13) BUN (6-20) mg/dL Creatinine (0.4-1.0) mg/dL Estimated GFR (MDRD) (>89) Glucose (70-100) mg/dL Calcium (8.5-10.3) mg/dL Magnesium (1.7-2.8) mg/dL Total Bilirubin (0.2-1.0) mg/dL AST (10-42) IU/L ALT (10-60) IU/L Alkaline Phosphatase (42-121) IU/L Total Protein (6.7-8.2) g/dL Albumin (3.2-5.5) g/dL Globulin (2.1-4.2) g/dL Albumin/Globulin Ratio (1.0-2.2) Urine Color Urine Clarity (CLEAR) Urine pH (5.0-7.5) PH Ur Specific [place] (1.002-1.030) Urine Protein (NEGATIVE) mg/dL Urine Glucose (UA) (NEGATIVE) mg/dL Urine Ketones (NEGATIVE) mg/dL Urine Occult Blood (NEGATIVE) Urine Nitrite (NEGATIVE) Urine Bilirubin (NEGATIVE) Urine Urobilinogen (NORMAL) E.U./dL Ur Leukocyte Esterase (NEGATIVE) Urine RBC (0-5) /HPF Urine WBC (0-5) /HPF Ur Squamous Epith Cells (<= Few) Urine Bacteria (None Seen) /HPF Urine Culture Comments - Diagnostic Imaging Diagnostic Imaging Results: positive: Final report reviewed Assessment/Plan - Problem List (1) Asthma Impression: Patient believes that her asthma started after being exposed to [place] trees outside. She does not have any rescue inhaler left at home, but used to take Xopenex. She does not use oxygen at home. Patient believes that she has been having problems with increased coughing after taking her medications. Plan: Give supplemental O2, IV steroids, IV antibiotics and monitor vital signs. Qualifiers: Asthma severity: unspecified severity Asthma persistence: unspecified Asthma complication type: with acute exacerbation Qualified Code(s): J45.901 - Unspecified asthma with (acute) exacerbation (2) Chronic anticoagulation Impression: Patient continues on Warfarin with frequent INR checks for her chronic atrial fibrillation. Her INR on admission was slightly low at 1.9, and today it continues to trend upward to 3.4. On the day of admission she received an extra dose as she was sub-therapeutic. Plan: continue to monitor INRs and continue coumadin, with minor adjustments. (3) Congestive heart failure Impression: Patient has not had an echocardiogam since 09/2016. She was started on Spironolactone in April for enlarged RV, and edema. She has increased abdominal girth, increased BLE and increased breathing efforts. A repeat echo was completed and showed similar mild aortic stenosis, but right heart pressures were vastly improved with an RVSP at rest of 60, down from 09/2016's reading of a RVSP at rest of 115mmHg! This has proved that the Spironolactone has improved her heart failure. Plan: Continue diuretics, daily weights, and an encourage activity. Qualifiers: Congestive heart failure chronicity: acute on chronic (4) Bilateral pneumonia Impression: As per admitting chest x-ray, there are bilateral infiltrates and atelectasis appreciated, probable small pleural effusions, cardiomegaly without pulmonary edema. Patient is slowly improving, but still having exacerbations. Plan: Continue on Rochephin every 24 hours, respiratory care, flutter valve, nebs and continue to monitor labs. Qualifiers: Lung location: lower lobe of lung
[2017-06-09] MEDS ORDERED: SODIUM CHLORIDE FLUSH 0.9% 10 ML SYRINGE ONE (13:46)
[2017-06-09] MEDS: BENZOCAINE/MENTHOL LOZENGE MM PRN ×2 (13:46→19:04)
[2017-06-09] MEDS ORDERED: WARFARIN 2.5 MG TABLET PO SCH (14:00)
[2017-06-09] MEDS: cefTRIAXone 1 GM in SODIUM CHLORIDE 0.9% MINIBAG 100 ML IV SCH (16:18)
[2017-06-09] MEDS: LEVALBUTEROL 1.25 MG/3 ML NEB INH SCH (20:00)
[2017-06-09] MEDS: CALCIUM CARBONATE CHEW 500 MG TABLET PO SCH (23:37)
[2017-06-10] MEDS: SODIUM CHLORIDE FLUSH 0.9% 10 ML SYRINGE IVP SCH ×3 (01:49→16:32)
[2017-06-10] MEDS: LEVALBUTEROL 1.25 MG/3 ML NEB INH SCH ×3 (02:28→20:50)
[2017-06-10 06:08] LABS: BASOPHILS % (AUTO) 0.1 %; HGB - HEMOGLOBIN 11.7 g/dL (12.0-16.0); LYMPHOCYTES # (AUTO) 0.4 10^3/uL (1.5-3.5); LYMPHOCYTES % (AUTO) 5.4 %; MEAN CORPUSCULAR HEMOGLOBIN 29.3 pg (27.0-31.0); MEAN CORPUSCULAR HGB CONC 31.7 g/dL (32.0-36.0); MEAN CORPUSCULAR VOLUME 92.4 fL (81.0-99.0); MEAN PLATELET VOLUME 8.7 fL (7.9-10.8); MONOCYTES # (AUTO) 0.6 10^3/uL (0.0-1.0); MONOCYTES % (AUTO) 7.6 %; NEUTROPHILS # (AUTO) 6.4 10^3/uL (1.5-6.6); NEUTROPHILS % (AUTO) 86.9 %; PLT - PLATELET COUNT 230 10^3/uL (130-450); RED BLOOD COUNT 3.98 10^6/uL (4.20-5.40); RED CELL DISTRIBUTION WIDTH 16.9 % (12.0-15.0); WHITE BLOOD COUNT 7.4 x10^3/uL (4.8-10.8)
[2017-06-10 06:14] LABS: INR 3.9 (0.8-1.2); PT - PROTHROMBIN TIME 41.5 secs (9.9-12.6)
[2017-06-10 06:22] LABS: ALBUMIN 3.3 g/dL (3.2-5.5); ALBUMIN/GLOBULIN RATIO 1.1 (1.0-2.2); BILIRUBIN,TOTAL 0.5 mg/dL (0.2-1.0); CALCIUM 9.3 mg/dL (8.5-10.3); TOTAL PROTEIN 6.4 g/dL (6.7-8.2)
[2017-06-10] MEDS: methylPREDNISolone SUCCINATE 40 MG/ML VIAL IVP SCH ×3 (06:26→21:22)
[2017-06-10] MEDS: SODIUM CHLORIDE FLUSH 0.9% 10 ML SYRINGE IVP PRN ×2 (06:26→21:22)
[2017-06-10] MEDS: FLUTICASONE HFA 110 MCG INHALER INH SCH ×2 (07:44→20:52)
[2017-06-10] MEDS: CALCIUM CARBONATE CHEW 500 MG TABLET PO SCH ×2 (09:32→21:22)
--- NOTE | 2017-06-10 09:32 | XRAY Preliminary Report ---
Exam: XR CHEST 2 VIEW X-RAY IMPRESSION: No significant change from prior allowing for differences in technique. Small right and m oderate left pleural effusions with associated airspace disease as before. [facility] SITE ID: [id number]
--- NOTE | 2017-06-10 09:32 | XRAY Report ---
EXAM: CHEST RADIOGRAPHY EXAM DATE: 06/10/2017 08:57 AM. CLINICAL HISTORY: Increased congestion. COMPARISON: 06/07/2017. TECHNIQUE: 2 views. FINDINGS: Lungs/Pleura: Small right and moderate left pleural effusions have not significantly changed compared to prior allowing for differences in technique. There are mild associated basilar airspace opacities . No pneumothorax. Mediastinum: Mild to moderate enlargement of the cardiac silhouette as before. Other: None. IMPRESSION: No significant change from prior allowing for differences in technique. Small right and m oderate left pleural effusions with associated airspace disease as before. [facility] Referring Provider Line: [phone] SITE ID: [id number]
[2017-06-10] MEDS: FUROSEMIDE 40 MG/4 ML VIAL IVP SCH ×2 (09:33→12:52)
[2017-06-10] MEDS: SPIRONOLACTONE 25 MG TABLET PO SCH ×2 (09:33→21:22)
[2017-06-10] MEDS: CARVEDILOL 12.5 MG TABLET PO SCH ×2 (09:33→21:22)
[2017-06-10] MEDS: LEVALBUTEROL 1.25 MG/3 ML NEB INH PRN ×2 (12:35→15:59)
[2017-06-10] MEDS ORDERED: SODIUM CHLORIDE FLUSH 0.9% 10 ML SYRINGE ONE (12:41)
[2017-06-10] MEDS: AZITHROMYCIN INJ 500 MG in SODIUM CHLORIDE 0.9% 250 ML IV SCH (12:56)
[2017-06-10] MEDS: POLYETHYLENE GLYCOL 3350 17 GM PACKET PO SCH (12:58)
--- NOTE | 2017-06-10 12:58 | PROCEDURE REPORT ---
Hospitalist Procedure Note - Procedure Note Procedure Note: [id number] Called to start IV after nursing staff had multiple attempts. A #22 Gauge IV started to Left AC with one attempt. Connected to heplock and flushed. Patient tolerated well.
--- NOTE | 2017-06-10 14:55 | PROVIDER PROGRESS NOTE ---
Subjective - Prog Note Date Prog Note Date: 06/10/17 Prog Note Time: 07:00 - Subjective Pt reports feeling: No change Subjective: Mae was not improved as expected from yesterday. Patient was agreeable to another chest x-ray, and Azithromycin was added. She denies chest pain, N/V, or increased cough. She is still short of breath, and requires oxygen. Current Medications - Current Medications Current Medications: Active Medications Calcium Carbonate/Glycine (Tums) 500 mg PO TID PRN PRN Reason: Heartburn Last Admin: 06/09/17 19:04 Dose: 500 mg Calcium Carbonate/Glycine (Tums) 750 mg PO BID [facility] Last Admin: 06/10/17 09:32 Dose: 750 mg Carvedilol (Coreg) 12.5 mg PO BID [facility] Last Admin: 06/10/17 09:33 Dose: 12.5 mg Fluticasone Propionate (Flovent) 1 puffs INH RTBID [facility] Last Admin: 06/10/17 07:44 Dose: 1 puffs Furosemide (Lasix Inj 40 Mg Vial) 40 mg IVP DAILY [facility] Last Admin: 06/10/17 12:52 Dose: 40 mg Ceftriaxone Sodium 1 gm/ (Sodium Chloride) 100 mls @ 200 mls/hr IV Q24H [facility] Last Infusion: 06/09/17 17:10 Dose: Infused Azithromycin 500 mg/ Sodium (Chloride) 250 mls @ 250 mls/hr IV Q24H [facility] Last Infusion: 06/10/17 13:56 Dose: Infused Levalbuterol HCl (Xopenex) 1.25 mg INH Q4H PRN PRN Reason: Shortness of Air/Wheezing Last Admin: 06/10/17 12:35 Dose: 1.25 mg Levalbuterol HCl (Xopenex) 1.25 mg INH RTBID [facility] Last Admin: 06/10/17 07:44 Dose: 1.25 mg Methylprednisolone (Solu-Medrol (40mg Vial)) 40 mg IVP TID [facility] Last Admin: 06/10/17 13:33 Dose: 40 mg Mineral Oil (Cavilon) 1 applic TOP PRN PRN PRN Reason: Skin Care Polyethylene Glycol (Miralax) 17 gm PO DAILY [facility] Last Admin: 06/10/17 12:58 Dose: 17 gm Sodium Chloride (Normal Saline Flush 0.9%) 10 ml IVP PRN PRN PRN Reason: NEEDED PER PROVIDER ORDERS Last Admin: 06/10/17 06:26 Dose: 10 ml Sodium Chloride (Normal Saline Flush 0.9%) 10 ml IVP 0100,0900,1700 [facility] Last Admin: 06/10/17 09:34 Dose: 10 ml Spironolactone (Aldactone) 25 mg PO BID [facility] Last Admin: 06/10/17 09:33 Dose: 25 mg Throat Lozenges (Cepacol) 1 lozenge MM Q2HR PRN PRN Reason: Throat pain Last Admin: 06/09/17 19:04 Dose: 1 lozenge Ascorbic Acid [Vitamin C] 500 mg PO DAILY 11/20/16 Warfarin [Coumadin] 5 mg PO MOFR@1400 11/20/16 Fluticasone 110 Mcg [Flovent] 1 puffs INH BID 04/07/17 Warfarin [Coumadin] 2.5 mg PO SUTUWETHSA@1400 04/07/17 Cholecalciferol (Vitamin D3) [Vitamin D3] 2,000 units PO DAILY 06/07/17 Objective - Vital Signs/Intake & Output Reviewed Vital Signs: Yes Vital Signs: Vital Signs x48h Temp Pulse Pulse Resp BP Pulse Ox 06/10/17 12:37 74 18 06/10/17 08:00 68 20 06/10/17 07:50 36.5 C 74 18 162/95 H 96 Intake & Output: Intake & Output 06/07/17 06/08/17 06/09/17 06/10/17 23:59 23:59 23:59 23:59 Intake Total 440 2160 1468 1490 Output Total 650 2200 700 Balance 440 1510 -732 790 - Objective General Appearance: positive: Alert, Moderate distress Eyes Bilateral: positive: Normal inspection ENT: positive: ENT inspection nml, Dry mucous membranes Neck: positive: Nml inspection, Thyroid nml, Stiff neck Respiratory: positive: Chest non-tender, Wheezes, Rhonchi Cardiovascular: positive: No gallop, Irregularly irregular, Systolic murmur, Decreased pulse(s) Peripheral Pulses: 1+ Radial (R), 1+ Radial (L) Abdomen: positive: Non-tender, No organomegaly, Nml bowel sounds, No distention Back: positive: Nml inspection Skin: positive: No rash, Warm, Dry, Pallor Extremities: positive: Non-tender, Full ROM, Pedal edema (chronic edema.) Neurologic/Psychiatric: positive: Oriented x3, CN's nml (2-12), Motor nml, Sensation nml Reflexes: Bicep (R): 2+, Bicep (L): 2+ - Lab Results Fish Bones: 06/10/17 05:39 06/10/17 05:39 Other Labs: Lab Results x24hrs 06/10/17 06/10/17 06/10/17 Range/Units 05:39 05:39 05:39 WBC (4.8-10.8) x10^3/uL RBC (4.20-5.40) 10^6/uL Hgb (12.0-16.0) g/dL Hct (37.0-47.0) % MCV (81.0-99.0) fL MCH (27.0-31.0) pg MCHC (32.0-36.0) g/dL RDW (12.0-15.0) % Plt Count (130-450) 10^3/uL MPV (7.9-10.8) fL Neut # (1.5-6.6) 10^3/uL Lymph # (1.5-3.5) 10^3/uL Bee # (0.0-1.0) 10^3/uL Eos # (0.0-0.7) 10^3/uL Baso # (0.0-0.1) 10^3/uL Absolute Nucleated RBC x10^3/uL Nucleated RBC % /100WBC PT 41.5 H (9.9-12.6) secs INR 3.9 H (0.8-1.2) Sodium 140 (135-145) mmol/L Potassium 4.0 (3.5-5.0) mmol/L Chloride 97 L (101-111) mmol/L Carbon Dioxide 33 H (21-32) mmol/L Anion Gap 10.0 (6-13) BUN 39 H (6-20) mg/dL Creatinine 1.0 (0.4-1.0) mg/dL Estimated GFR (MDRD) 52 L (>89) Glucose 140 H (70-100) mg/dL Calcium 9.3 (8.5-10.3) mg/dL Total Bilirubin 0.5 (0.2-1.0) mg/dL AST 23 (10-42) IU/L ALT 17 (10-60) IU/L Alkaline Phosphatase 47 (42-121) IU/L B-Natriuretic Peptide 730 H (5-100) pg/mL Total Protein 6.4 L (6.7-8.2) g/dL Albumin 3.3 (3.2-5.5) g/dL Globulin 3.1 (2.1-4.2) g/dL Albumin/Globulin Ratio 1.1 (1.0-2.2) 06/10/17 Range/Units 05:39 WBC 7.4 (4.8-10.8) x10^3/uL RBC 3.98 L (4.20-5.40) 10^6/uL Hgb 11.7 L (12.0-16.0) g/dL Hct 36.8 L (37.0-47.0) % MCV 92.4 (81.0-99.0) fL MCH 29.3 (27.0-31.0) pg MCHC 31.7 L (32.0-36.0) g/dL RDW 16.9 H (12.0-15.0) % Plt Count 230 (130-450) 10^3/uL MPV 8.7 (7.9-10.8) fL Neut # 6.4 (1.5-6.6) 10^3/uL Lymph # 0.4 L (1.5-3.5) 10^3/uL Bee # 0.6 (0.0-1.0) 10^3/uL Eos # 0.0 (0.0-0.7) 10^3/uL Baso # 0.0 (0.0-0.1) 10^3/uL Absolute Nucleated RBC 0.00 x10^3/uL Nucleated RBC % 0.0 /100WBC PT (9.9-12.6) secs INR (0.8-1.2) Sodium (135-145) mmol/L Potassium (3.5-5.0) mmol/L Chloride (101-111) mmol/L Carbon Dioxide (21-32) mmol/L Anion Gap (6-13) BUN (6-20) mg/dL Creatinine (0.4-1.0) mg/dL Estimated GFR (MDRD) (>89) Glucose (70-100) mg/dL Calcium (8.5-10.3) mg/dL Total Bilirubin (0.2-1.0) mg/dL AST (10-42) IU/L ALT (10-60) IU/L Alkaline Phosphatase (42-121) IU/L B-Natriuretic Peptide (5-100) pg/mL Total Protein (6.7-8.2) g/dL Albumin (3.2-5.5) g/dL Globulin (2.1-4.2) g/dL Albumin/Globulin Ratio (1.0-2.2) - Diagnostic Imaging Diagnostic Imaging Results: positive: Final report reviewed Diagnostic Imaging Comments: EXAM: CHEST RADIOGRAPHY EXAM DATE: 06/10/2017 08:57 AM. CLINICAL HISTORY: Increased congestion. COMPARISON: 06/07/2017. TECHNIQUE: 2 views. FINDINGS: Lungs/Pleura: Small right and moderate left pleural effusions have not significantly changed compared to prior allowing for differences in technique. There are mild associated basilar airspace opacities. No pneumothorax. Mediastinum: Mild to moderate enlargement of the cardiac silhouette as before. Other: None. IMPRESSION: No significant change from prior allowing for differences in technique. Small right and moderate left pleural effusions with associated airspace disease as before. Assessment/Plan - Problem List (1) Asthma Impression: Patient believes that her asthma started after being exposed to [place] trees outside. She does not have any rescue inhaler left at home, but used to take Xopenex. She does not use oxygen at home. Patient believes that she has been having problems with increased coughing after taking her medications. She claims to have exacerbations at night, and mostly after her nightly pills. Due to worsening condition a chest x-ray will be ordered. Plan: Give supplemental O2, IV steroids, IV antibiotics, order swallow evaluation to rule out aspiration, and monitor vital signs. Qualifiers: Asthma severity: unspecified severity Asthma persistence: unspecified Asthma complication type: with acute exacerbation Qualified Code(s): J45.901 - Unspecified asthma with (acute) exacerbation (2) Chronic anticoagulation Impression: Patient continues on Warfarin with frequent INR checks for her chronic atrial fibrillation. Her INR on admission was slightly low at 1.9, and today it continues to trend upward to 3.9. On the day of admission she received an extra dose as she was sub-therapeutic. Plan: continue to monitor INRs and continue coumadin, with minor adjustments. (3) Congestive heart failure Impression: Patient has not had an echocardiogam since 09/2016. She was started on Spironolactone in April for enlarged RV, and edema. She has increased abdominal girth, increased BLE and increased breathing efforts. A repeat echo was completed and showed similar mild aortic stenosis, but right heart pressures were vastly improved with an RVSP at rest of 60, down from 09/2016's reading of a RVSP at rest of 115mmHg! This has proved that the Spironolactone has improved her heart failure. Plan: Continue diuretics, daily weights, and an encourage activity. Qualifiers: Congestive heart failure chronicity: acute on chronic (4) Bilateral pneumonia Impression: As per admitting chest x-ray, there are bilateral infiltrates and atelectasis appreciated, probable small pleural effusions, cardiomegaly without pulmonary edema. Patient is slowly improving, but still having exacerbations. A repeat chest x-ray was completed and shows stable, left greater than right pleural effusions. I will order a swallow study for AM based on complaints of coughing after nightly medications. Plan: Continue on Rochephin every 24 hours, Azithromycin was added today due to little improvement, respiratory care, flutter valve, nebs and continue to monitor labs. Qualifiers: Lung location: lower lobe of lung (5) Chronic atrial fibrillation Impression: Patient has a long history of this and is anticoagulated with Warfarin which is continued while in the hospital with daily INRs. There has been no evidence of RVR as this patient has a history of this. She is rate controlled with a beta suzi. Plan: Continue to monitor vital signs and home medications.
[2017-06-10] MEDS: DOCUSATE SODIUM 250 MG CAPSULE PO SCH (16:32)
[2017-06-10] MEDS: cefTRIAXone 1 GM in SODIUM CHLORIDE 0.9% MINIBAG 100 ML IV SCH (16:32)
[2017-06-11] MEDS: SODIUM CHLORIDE FLUSH 0.9% 10 ML SYRINGE IVP SCH ×2 (01:46→09:21)
[2017-06-11] MEDS: LEVALBUTEROL 1.25 MG/3 ML NEB INH PRN (02:54)
[2017-06-11] MEDS: SODIUM CHLORIDE FLUSH 0.9% 10 ML SYRINGE IVP PRN ×2 (05:10→09:13)
[2017-06-11] MEDS: methylPREDNISolone SUCCINATE 40 MG/ML VIAL IVP SCH (05:10)
[2017-06-11 08:37] VITALS: BP 137/73
[2017-06-11] MEDS: FLUTICASONE HFA 110 MCG INHALER INH SCH (08:45)
[2017-06-11] MEDS: LEVALBUTEROL 1.25 MG/3 ML NEB INH SCH (08:45)
[2017-06-11] MEDS: FUROSEMIDE 40 MG/4 ML VIAL IVP SCH (09:13)
[2017-06-11] MEDS: AZITHROMYCIN INJ 500 MG in SODIUM CHLORIDE 0.9% 250 ML IV SCH (09:16)
[2017-06-11] MEDS: CARVEDILOL 12.5 MG TABLET PO SCH (09:19)
[2017-06-11] MEDS: CALCIUM CARBONATE CHEW 500 MG TABLET PO SCH (09:20)
[2017-06-11] MEDS: DOCUSATE SODIUM 250 MG CAPSULE PO SCH (09:20)
[2017-06-11] MEDS: SPIRONOLACTONE 25 MG TABLET PO SCH (09:20)
[2017-06-11] MEDS: POLYETHYLENE GLYCOL 3350 17 GM PACKET PO SCH ×2 (09:20→11:43)
--- NOTE | 2017-06-11 10:50 | Discharge Plan ---
Discharge Plan Disposition: Home, Self Care Condition: Good Prescriptions: Furosemide [Lasix] 40 mg PO DAILY #30 tablet Levalbuterol Tartrate [Xopenex Hfa] 15 gm IH Q4H PRN #1 hfa.aer.ad PRN Reason: Cough levoFLOXacin [Levofloxacin] 500 mg PO DAILY 10 Days #10 tablet predniSONE [Prednisone] 20 mg PO DAILY 6 Days #9 tablet Saccharomyces Boulardii [Florastor] 250 mg PO BID 20 Days #40 capsule Spironolactone [Aldactone] 50 mg PO DAILY #30 tablet Diet: Cardiac Activity Restrictions: No Restrictions Shower Restrictions: No Driving Restrictions: No Weight Bearing: Full Weight Instruction Topics: COPD, Pneumonia Additional Instructions or Follow Up instructions: You were treated for pneumonia and asthma exacerbation. You were treated with IV antibiotics that were changed to PO. You were also given IV steroids that were changed to PO. You should continue both the antibiotic and the steroid at home. You will have a walking oxygen saturation test, so you may qualify for home oxygen. I will prescribe you a new rescue inhaler as requested. The time that you were admitted in April, you were put on a new diuretic called Spironolactone. A echocardiogram was completed this time and is shows a large improvement in your right sided heart failure. This shows that this medication is doing exactly what it is intended to do. You should rest when you are tired and continue to use your flutter valve. Your INR was over 3 today, so please skip this evening's dose of coumadin. You should follow up with your PCP within one week. No Smoking: If you smoke, Please STOP! Call for help. Follow-up with: Mor Mcarthur MD [Primary Care Provider] -
[2017-06-11] MEDS ORDERED: SODIUM CHLORIDE FLUSH 0.9% 10 ML SYRINGE ONE (11:00)
--- NOTE | 2017-06-11 11:01 | DISCHARGE SUMMARY ---
Discharge Summary Admit Date: 06/07/17 Discharge Date: 06/11/17 Discharging Provider: ANSON Lou Primary Care Provider: Dr. Mor Mcarthur Code Status: Do Not Attempt Resuscitation Condition at Discharge: Good Discharge Disposition: 01 Home, Self Care - DIAGNOSES Admission Diagnoses: Acute exacerbation of CHF (congestive heart failure) (I50.9) Asthma (J45.909) Chronic atrial fibrillation (I48.2) Discharge Diagnoses with Status of Each Condition: Acute exacerbation of CHF (congestive heart failure) (I50.9) chronic, stable. Asthma (J45.909) chronic, stable. Chronic atrial fibrillation (I48.2) chronic, stable. Bilateral pneumonia (J18.9) new on this admission, care to continue. Chronic anticoagulation (Z79.01) chronic, patient instructed to skip tonight's dose. - HPI History of Present Illness: Mae Carpio is an 89-year old white female with a past medical history of pulmonary hypertension, CHF, asthma, hypertension, atrial fibrillation, chronic constipation, abdominal hernia, macular degeneration and anticoagulated on warfarin. Patient presented to the ED with a 2-day history of coughing, wheezing and progressive shortness of breath. She believes she was exposed to an [place] tree that is blooming. She also admits to swollen ankles, weight gain , and a non-productive cough. She denies fevers, chills, weight loss, poor appetite, vomiting or falls. She will be admitted for asthma exacerbation and CHF. - HOSPITAL COURSE Hospital Course: The following diagnoses were prevalent during this hospital stay: (1) Asthma- Patient believes that her asthma started after being exposed to [place] trees outside. She does not have any rescue inhaler left at home, but used to take Xopenex. She does not use oxygen at home. Patient believes that she has been having problems with increased coughing after taking her medications. She claims to have exacerbations at night, and mostly after her nightly pills. Due to worsening condition a chest x-ray will be ordered. Patient was supported by giving supplemental O2, IV steroids, and IV antibiotics. A swallow evaluation to rule out aspiration was ordered, but not completed due to staffing. Patient's vital signs were monitored. (2) Chronic anticoagulation- Patient continues on Warfarin with frequent INR checks for her chronic atrial fibrillation. Her INR on admission was slightly low at 1.9, and it continued to trend upward. On the day of admission she received an extra dose as she was sub-therapeutic. Patient was instructed to hold her PM dose of coumadin tomorrow 06/12/17 based on the latest value of 3.9. (3) Congestive heart failure- Patient has not had an echocardiogam since 2016. She was started on Spironolactone in April for enlarged RV, and edema. She has increased abdominal girth, increased BLE and increased breathing efforts. A repeat echo was completed and showed similar mild aortic stenosis, but right heart pressures were vastly improved with an RVSP at rest of 60, down from 09/2016's reading of a RVSP at rest of 115mmHg! This has shown that the Spironolactone has improved her heart failure. Patient was continued on diuretics, daily weights, and was encouraged to increase her activity. She was prescribed increased doses of diuretics due to recent chest x-ray showing pulmonary congestion. (4) Bilateral pneumonia- As per admitting chest x-ray, there are bilateral infiltrates and atelectasis appreciated, probable small pleural effusions, cardiomegaly without pulmonary edema. Patient is slowly improving, but still having exacerbations. A repeat chest x-ray was completed and shows stable, left greater than right pleural effusions. I will order a swallow study for AM based on complaints of coughing after nightly medications. Patient was prescribed Rochephin every 24 hours, Azithromycin was added due to little improvement, and transitioned to Levofloxacin PO on discharge. Patient was provided respiratory care, flutter valve treatments, nebs and labs were monitored. (5) Chronic atrial fibrillation- Patient has a long history of this and is anticoagulated with Warfarin which is continued while in the hospital with daily INRs. There has been no evidence of RVR as this patient has a history of this. She is rate controlled with a beta suzi. Disposition: Patient was transported via private car with daughter home. She passed her walking oxygen saturation test on the day of discharge. She should continue on oral antibiotics and steroids for a course at home. - ALLERGIES Allergies/Adverse Reactions: Allergies Allergy/AdvReac Type Severity Reaction Status Date / Time albuterol Allergy Unknown Verified 04/23/17 14:03 verapamil [Verapamil] Allergy Rash Verified 04/23/17 14:03 codeine AdvReac Dizziness Verified 04/23/17 14:03 digoxin AdvReac Dizziness Verified 04/23/17 14:03 diltiazem AdvReac Dizziness Verified 04/23/17 14:03 metoprolol AdvReac Dizziness Verified 04/23/17 14:03 oxycodone [Oxycodone] AdvReac Nausea Verified 04/23/17 14:03 - MEDICATIONS Home Medications: Ambulatory Orders Medication Instructions Recorded Confirmed Ascorbic Acid [Vitamin C] 500 mg PO DAILY 11/20/16 06/07/17 Warfarin [Coumadin] 5 mg PO MOFR@1400 11/20/16 06/07/17 Calcium Carbonate [Tums (Calcium 750 mg PO BID tablet 11/27/16 06/07/17 Carbonate 500mg)] Carvedilol [Coreg] 12.5 mg PO BID tablet 11/27/16 06/07/17 Fluticasone 110 Mcg [Flovent] 1 puffs INH BID 04/07/17 06/07/17 Warfarin [Coumadin] 2.5 mg PO SUTUWETHSA@1400 04/07/17 06/07/17 Cholecalciferol (Vitamin D3) 2,000 units PO DAILY 06/07/17 06/07/17 [Vitamin D3] Furosemide [Lasix] 40 mg PO DAILY #30 tablet 06/11/17 Levalbuterol Tartrate [Xopenex Hfa] 15 gm IH Q4H PRN #1 hfa.aer.ad 06/11/17 Saccharomyces Boulardii [Florastor] 250 mg PO BID 20 Days #40 capsule 06/11/17 Spironolactone [Aldactone] 50 mg PO DAILY #30 tablet 06/11/17 levoFLOXacin [Levofloxacin] 500 mg PO DAILY 10 Days #10 tablet 06/11/17 predniSONE [Prednisone] 20 mg PO DAILY 6 Days #9 tablet 06/11/17 - PHYSICAL EXAM AT DISCHARGE General Appearance: positive: No acute distress, Alert Eyes Bilateral: positive: Normal inspection, PERRL ENT: positive: ENT inspection nml, Pharynx nml, No signs of dehydration Neck: positive: Nml inspection, Thyroid nml, No JVD Respiratory: positive: Chest non-tender, No respiratory distress, Wheezes, Other (crackles both lobes remain.) Cardiovascular: positive: No gallop, Irregularly irregular, Systolic murmur, Decreased pulse(s) Peripheral Pulses: positive: 1+ Abdomen: positive: Non-tender, Nml bowel sounds, Other (rounded, soft) Back: positive: Nml inspection Skin: positive: No rash, Warm, Dry, Pallor Extremities: positive: Non-tender, Full ROM, Nml appearance, Pedal edema Neurologic/Psychiatric: positive: Oriented x3, CN's nml (2-12), Motor nml, Sensation nml, Depressed mood/affect Reflexes: Bicep (R): 2+, Bicep (L): 2+ - LABS Result Diagrams: 06/10/17 05:39 06/10/17 05:39 - DIAGNOSTIC IMAGING Diagnostic Imaging Results: Final report reviewed Diagnostic Imaging Results Comments: EXAM: CHEST RADIOGRAPHY EXAM DATE: 06/07/2017 11:03 AM. CLINICAL HISTORY: Altered mental status. COMPARISON: 04/07/2017. TECHNIQUE: 1 view. FINDINGS: Lungs/Pleura: Increased bibasilar opacities with probable small bilateral pleural effusions. Mildly elevated left hemidiaphragm. Upper lungs unchanged. No erasmo pulmonary edema. No pneumothorax. Mediastinum: Mild cardiomegaly and stable superior mediastinal contour. Other: No acute fracture evident. IMPRESSION: 1. Mildly increased bibasilar atelectasis/infiltrates. Probable small pleural effusions. 2. Mild cardiomegaly, without overt pulmonary edema. EXAM: CHEST RADIOGRAPHY EXAM DATE: 06/10/2017 08:57 AM. CLINICAL HISTORY: Increased congestion. COMPARISON: 06/07/2017. TECHNIQUE: 2 views. FINDINGS: Lungs/Pleura: Small right and moderate left pleural effusions have not significantly changed compared to prior allowing for differences in technique. There are mild associated basilar airspace opacities. No pneumothorax. Mediastinum: Mild to moderate enlargement of the cardiac silhouette as before. Other: None. IMPRESSION: No significant change from prior allowing for differences in technique. Small right and moderate left pleural effusions with associated airspace disease as before. - FOLLOW UP Follow Up: Disposition: 01 Home, Self Care Condition: Good Prescriptions: Furosemide [Lasix] 40 mg PO DAILY #30 tablet Levalbuterol Tartrate [Xopenex Hfa] 15 gm IH Q4H PRN #1 hfa.aer.ad PRN Reason: Cough levoFLOXacin [Levofloxacin] 500 mg PO DAILY 10 Days #10 tablet predniSONE [Prednisone] 20 mg PO DAILY 6 Days #9 tablet Saccharomyces Boulardii [Florastor] 250 mg PO BID 20 Days #40 capsule Spironolactone [Aldactone] 50 mg PO DAILY #30 tablet Diet: Cardiac Activity Restrictions: No Restrictions Shower Restrictions: No Driving Restrictions: No Weight Bearing: Full Weight Instruction Topics: COPD, Pneumonia Additional Instructions or Follow Up instructions: You were treated for pneumonia and asthma exacerbation. You were treated with IV antibiotics that were changed to PO. You were also given IV steroids that were changed to PO. You should continue both the antibiotic and the steroid at home. You will have a walking oxygen saturation test, so you may qualify for home oxygen. I will prescribe you a new rescue inhaler as requested. The time that you were admitted in April, you were put on a new diuretic called Spironolactone. A echocardiogram was completed this time and is shows a large improvement in your right sided heart failure. This shows that this medication is doing exactly what it is intended to do. You should rest when you are tired and continue to use your flutter valve. Your INR was over 3 today, so please skip this evening's dose of coumadin. You should follow up with your PCP within one week. - TIME SPENT Time Spent in Discharge (Minutes): 60
== END 2017-06-11 15:43 | disposition home or self-care (01) | DRG 291 ==
LOC: EDUNIT# → ED 10:46 → MS2 15:45
PROVIDERS: ADMIT Nurse Practitioner; ATTEND Nurse Practitioner
DX: I11.0 Hypertensive heart disease with heart failure (principal); J18.9 Pneumonia, unspecified organism; J45.901 Unspecified asthma with (acute) exacerbation; I50.9 Heart failure, unspecified; H35.30 Unspecified macular degeneration; H26.9 Unspecified cataract; Z85.828 Personal history of other malignant neoplasm of skin; Z90.49 Acquired absence of other specified parts of digestive tract; Z79.01 Long term (current) use of anticoagulants; I48.2 Chronic atrial fibrillation; I27.20 Pulmonary hypertension, unspecified; K59.09 Other constipation; I35.0 Nonrheumatic aortic (valve) stenosis
CPT/HCPCS: 36415; 71045; 71046; 80048; 80053; 81001; 83735; 83880; 84484; 85025; 85610; 87070; 87086; 87205; 87275; 87276; 93306; 94640; 94664; 94761; 96365; 99284

== ENCOUNTER 2017-06-25 11:33 | Outpatient (CLI) | payer MEDICARE, OTHER | END 2017-06-25 11:34 | disposition home or self-care (01) | LOC: LAB 11:33 | PROVIDERS: ATTEND Internal Medicine | DX: I48.91 Unspecified atrial fibrillation (principal); Z79.01 Long term (current) use of anticoagulants | CPT/HCPCS: 85610 ==